=== PATIENT | female | born 1960 | race Caucasian/White ===

== ENCOUNTER 2021-04-16 20:11 | Emergency (ER) | payer MEDICARE, OTHER, SELFPAY ==
[2021-04-16 20:13] VITALS: BP 176/105; PULSE 125; RESP 16; TEMP 36.4; O2SAT 96; BMI 27.3
--- NOTE | 2021-04-16 20:27 | ED_ITS ---
HPI - Fall General: Chief Complaint: Fall Stated Complaint: FALL Time Seen by Provider: 04/16/21 20:27 History of Present Illness: HPI Narrative: 60-year-old female was working in a shed today and became overheated. Patient was walking out to her car and was l ightheaded and fell to the ground landing on her buttocks and hitting the back of her head against the back end of the car. Patient denied any loss of consciousness. Patient sat for a while and felt better. Patient appears well. Patient appears no acute distress at this time. Patient reports chronic history of back pain and neck injury. Patient denies any other medical concerns. Review of Systems General: Reports: 10 or more systems reviewed and unremarkable except in HPI and below Musc: Reports: other (Low back pain, neck pain, and occipital scalp hematoma) Physical Exam Const: COMMON NORMALS: no acute distress and patient oriented x3 GENERAL APPEARANCE: cooperative HENMT: COMMON NORMALS: normocephalic, TM's normal bilaterally and Normal external nose present HEAD & SCALP: normocephalic and other (Small scalp basilio marty to the occiput) NOSE: Normal external nose present TYMPANIC MEMBRANE: TM's normal bilaterally MOUTH: Normal oral and palatal mucosa present Eye: GENERAL EYE: appearance normal, both eyes and all related structures Neck/C-Spine: COMMON NORMALS: full ROM Chest: COMMONS NORMALS: normal inspection of the chest Resp: COMMON NORMALS: normal respiratory effort EFFORT & INSPECTION: Yes able to speak in complete sentences Cardio: COMMON NORMALS: regular rate and regular rhythm RATE: regular rate RHYTHM: regular rhythm GI: COMMON NORMALS: non-tender Back/Pelvis: OTHER: Mild vertebral pain of the lumbar spine, muscle tenderness is noted. Extremity: COMMON NORMALS: normal to inspection Neuro: COMMON NORMALS: patient oriented x3 and moves all extremities Psych: COMMON NORMALS: mental status grossly normal and cooperative Skin: COMMON NORMALS: no rashes or lesions noted GENERAL SKIN EXAM: no rashes or lesions noted Course 2 Vital Signs: Vital signs: Vital Signs Temperature 97.6 F 04/16/21 20:13 Pulse Rate 87 04/16/21 20:56 Respiratory Rate 24 H 04/16/21 20:56 Blood Pressure 181/91 04/16/21 20:56 Pulse Oximetry 98 04/16/21 20:56 MDM - Fall MDM Narrative: Medical decision making narrative: 60-year-old female comes in today with complaints of head injury, neck discomfort, and low back pain. On exam patient does have a small hematoma to the occiput of her scalp. Patient has some muscle tenderness of her neck but no midline tenderness. Patient has some mild midline tenderness of the lumbar spine around L4-L5. Differential diagnosis includes but not limited to fracture, intervertebral disc disease, facet arthropathy, closed head injury, intracranial bleed. CT scan of the head neck and lumbar spine indicated no acute fractures or intracranial bleeding. Reviewed exam with patient with recommendations for treatment and follow-up. Patient reported understanding and agreed to plan. Lab Data: Labs: Lab Results 04/16/21 04/16/21 Range/Units 20:55 20:55 WBC 10.2 H (4.0-10.0) 10^3/ uL RBC 5.34 H (4.1-5.3) 10^6/u L Hgb 12.9 (11.5-15.3) g/dL Hct 40.9 (37.0-47.0) % MCV 76.6 L (81-99) fl MCH 24.2 L (28.0-34.0) pg MCHC 31.5 (30.0-36.0) g/dL RDW 15.9 H (12.1-15.1) % Plt Count 383 (130-400) 10^3/c mm MPV 11.5 H (7.4-10.4) fL Neut % (Auto) 73.7 % Lymph % (Auto) 19.4 % [place] % (Auto) 6.0 % Eos % (Auto) 0.5 % Baso % (Auto) 0.2 % Neut # (Auto) 7.49 (1.8-7.7) 10^3/u L Lymph # (Auto) 2.0 (0.8-4.8) 10^3/u L [place] # (Auto) 0.6 (0.2-0.9) 10^3/u L Eos # (Auto) 0.1 (0.0-0.8) 10^3/u L Baso # (Auto) 0.0 (0.0-0.1) 10^3/u L Nucleated RBC % (a uto) 0 % Nucleated RBCs # 0.0 /100WBC Sodium 143 (136-145) mmol/L Potassium 3.1 L (3.5-5.1) mmol/L Chloride 105 (98-107) mmol/L Carbon Dioxide 24 (22-29) mmol/L Anion Gap 17.1 (5-19) BUN 13 (8-23) mg/dL Creatinine 0.5 (0.5-0.9) mg/dL GFR Calculation 125.0 (90-130) mL/min Glucose 104 (65-115) mg/dL Calculated Osmolal ity 296 H (285-295) mOsm/k g Calcium 8.2 L (8.5-10.5) mg/dL Total Bilirubin 0.2 (0.15-1.2) mg/dL AST 19 (0-32) U/L ALT 11 (0-33) U/L Alkaline Phosphata se 102 (35-105) IU/L Total Protein 6.5 L (6.6-8.7) g/dL Albumin 3.5 (3.5-5.2) g/dL Globulin 3.0 (1.3-4.6) g/dL Discharge Plan Discharge Patient Disposition: Home Clinical Impression: Fall Qualifiers: Encounter type: initial encounter Qualified Code(s): W19.XXXA - Unspecified fall, initial encounter Back pain Qualifiers: Back pain location: low back pain Chronicity: unspecified Back pain laterality: unspecified Sciatica presence: without sciatica Qualified Code(s): M54.5 - Low back pain Closed head injury Qualifiers: Encounter type: initial encounter Qualified Code(s): S09.90XA - Unspecified injury of head, initial encounter Condition: Stable Prescriptions: New hydrocodone-acetaminophen 5-325 mg tablet 1 tab PO Q6H PRN (Reason: pain (scale score 7-10)) Qty: 10 RF: 0 Discharge Orders: Discharge ED (Routine); Ordered 04/16/21 Ordered By: Maximilian Cedillo Referrals: Jad Botello [Primary Care Provider] - Discharge Diet: Usual diet Discharge Activity: Increase activity as tolerated Patient Instructions: Back Pain (ED), Opioid Safety Activity Restrictions/Additional Instructions: Activity as tolerated. Gentle stretching and range of motion activity. Drink plenty of water with medications. Follow-up with primary care in 1 week for recheck. Return to the ER for new concerns. 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
--- NOTE | 2021-04-16 20:28 | CTR_ITS ---
PROCEDURE INFORMATION: Exam: CT Cervical Spine Without Contrast Exam date and time: 04/16/2021 8:28 PM Age: 60 years old Clinical indication: Injury or trauma; Fall; Blunt trauma; Prior surgery; Surgery date: 6+ months; Additional info: Fall injury TECHNIQUE: Imaging protocol: Computed tomography images of the cervical spine without contrast. Radiation optimization: All CT scans at this facility use at least one of these dose optimization techniques: automated exposure control; mA and/or kV adjustment per patient size (includes targeted exams where dose is matched to clinical indication); or iterative reconstruction. COMPARISON: CT head wo con* [id number] 04/16/2021 9:09 PM RADIATION DOSE METRICS: Total DLP (mGy-cm): 420.08 FINDINGS: Bones/joints: Posterior fusion noted from C1 through C3. Well corticated distal portion of the dens noted, separate from the body of C2. This has the appearance of old trauma versus os odontoideum. Vertebral alignment is physiologic. No acute fractures are demonstrated. No vertebral subluxation at any level. Mild degenerative facet joint changes. Discs/Spinal canal/Neural foramina: Degenerative disc narrowing at C5-C6. Mild disc bulges at C3-C4, C4-C5, C5-C6, and C6-C7. No severe spinal canal stenosis at any level. No severe neural foraminal stenosis at any level. Lungs: Mild fibrosis at the lung apices. Pleural spaces: No apical pneumothorax. Vasculature: Bilateral carotid artery stents are demonstrated. Soft tissues: No acute abnormality of the soft tissues. CT/CT cervical spin wo con* [id number] IMPRESSION: 1. 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 There is posterior fusion from C1 through C3, likely related to this finding. 2. No acute abnormality of the cervical spine demonstrated. Radiation Dose CTDIVOL = (mGy): DLP = 420.08 (mGy-cm)
--- NOTE | 2021-04-16 20:28 | CTR_ITS ---
PROCEDURE INFORMATION: Exam: CT Head Without Contrast Exam date and time: 04/16/2021 8:28 PM Age: 60 years old Clinical indication: Injury or trauma; Fall; Blunt trauma (contusions or hematomas); Without loss of consciousness; Additional info: Fall injury TECHNIQUE: Imaging protocol: Computed tomography of the head without contrast. Radiation optimization: All CT scans at this facility use at least one of these dose optimization techniques: automated exposure control; mA and/or kV adjustment per patient size (includes targeted exams where dose is matched to clinical indication); or iterative reconstruction. COMPARISON: No relevant prior studies available. RADIATION DOSE METRICS: Total DLP (mGy-cm): 794.83 FINDINGS: Brain: Old encephalomalacia left parietal lobe near the convexity. Age related parenchymal volume loss noted. There is decreased attenuation of the periventricular white matter, consistent with chronic microangiopathic white matter disease. Cerebral ventricles: No ventriculomegaly. Paranasal sinuses: Visualized sinuses are unremarkable. No fluid levels. Mastoid air cells: Unremarkable as visualized. No mastoid effusion. Bones/joints: Unremarkable. No acute fracture. Soft tissues: Unremarkable. CT/CT head wo con* [id number] IMPRESSION: No acute intracranial abnormality demonstrated. Radiation Dose CTDIVOL = (mGy): DLP = 794.83 (mGy-cm)
--- NOTE | 2021-04-16 20:28 | CTR_ITS ---
PROCEDURE INFORMATION: Exam: CT Lumbar Spine Without Contrast Exam date and time: 04/16/2021 8:28 PM Age: 60 years old Clinical indication: Injury or trauma; Fall; Blunt trauma (contusions or hematomas); Prior surgery; Surgery date: 6+ months; Additional info: Fall injury TECHNIQUE: Imaging protocol: Computed tomography images of the lumbar spine without contrast. Radiation optimization: All CT scans at this facility use at least one of these dose optimization techniques: automated exposure control; mA and/or kV adjustment per patient size (includes targeted exams where dose is matched to clinical indication); or iterative reconstruction. COMPARISON: No relevant prior studies available. RADIATION DOSE METRICS: Total DLP (mGy-cm): FINDINGS: Vertebrae: Idiopathic S-shaped scoliosis. Severe L5-S1 degenerative disc disease and spondylosis with Modic type III sclerotic endplate degenerative changes. Prominent right L1 benign intraosseous bone hemangioma. Discs/Spinal canal/Neural foramina: Mild L5-S1 central spinal stenosis with mild left lateral recess stenosis. Kidneys and ureters: Small vessel arterial calcifications in the renal gianluca bilaterally which are often associated with chronic renal failure. Vasculature: Calcification of the abdominal aorta and/or iliac arteries consistent with atherosclerotic vessel disease. Soft tissues: Unremarkable. CT/CT lumbar spine wo con* [id number] IMPRESSION: No acute spine findings. Radiation Dose CTDIVOL = (mGy): DLP = 1990.55 (mGy-cm)
[2021-04-16 20:56] VITALS: BP 181/91; PULSE 87; RESP 24; O2SAT 98
[2021-04-16 21:07] LABS: Basophils % 0.2 %; Eosinophils # 0.1 10^3/uL (0.0-0.8); Eosinophils % 0.5 %; Hematocrit 40.9 % (37.0-47.0); Hemoglobin 12.9 g/dL (11.5-15.3); Lymphocytes % 19.4 %; Mean Corpuscular HGB Conc 31.5 g/dL (30.0-36.0); Mean Corpuscular Hemoglobin 24.2 pg (28.0-34.0); Mean Corpuscular Volume 76.6 fl (81-99); Mean Platelet Volume 11.5 fL (7.4-10.4); Monocytes # 0.6 10^3/uL (0.2-0.9); Neutrophils # 7.49 10^3/uL (1.8-7.7); Neutrophils % 73.7 %; Nucleated Red Blood Cells % 0 %; Platelet Count 383 10^3/cmm (130-400); Red Blood Count 5.34 10^6/uL (4.1-5.3); Red Cell Distribution Width 15.9 % (12.1-15.1); White Blood Count 10.2 10^3/uL (4.0-10.0)
[2021-04-16 21:23] LABS: Alanine Aminotransferase 11 U/L (0-33); Albumin Level 3.5 g/dL (3.5-5.2); Alkaline Phosphatase 102 IU/L (35-105); Anion Gap 17.1 (5-19); Aspartate Amino Transferase 19 U/L (0-32); Blood Urea Nitrogen 13 mg/dL (8-23); Calcium 8.2 mg/dL (8.5-10.5); Carbon Dioxide 24 mmol/L (22-29); Chloride 105 mmol/L (98-107); Creatinine Clr Calc Pharmacy 126.5439; Glucose 104 mg/dL (65-115); Osmolality Calculated 296 mOsm/kg (285-295); Potassium 3.1 mmol/L (3.5-5.1); Sodium 143 mmol/L (136-145); Total Bilirubin 0.2 mg/dL (0.15-1.2); Total Protein 6.5 g/dL (6.6-8.7)
[2021-04-16 22:45] VITALS: BP 171/94; PULSE 78; RESP 18
== END 2021-04-16 22:47 | disposition home or self-care (01) ==
PROVIDERS: Emergency Provider Nurse Practitioner Family; PCP Family Medicine
DX: S00.03XA Contusion of scalp, initial encounter (principal); M54.5 Low back pain; W22.8XXA Striking against or struck by other objects, initial encounter
CPT/HCPCS: 70450; 72125; 72131; 80053; 85025; 99283

== ENCOUNTER 2021-06-14 03:35 | Inpatient (IN) | payer MEDICARE, OTHER, SELFPAY ==
[2021-06-14] VITALS (65 sets, daily range): BP systolic 99–140; BP diastolic 52–84; PULSE 81–111; RESP 13–33; TEMP 36.7–37; O2SAT 85–100; BMI 25.0
--- NOTE | 2021-06-14 03:39 | XRR_ITS ---
PROCEDURE INFORMATION: Exam: XR Chest Exam date and time: 06/14/2021 3:39 AM Age: 60 years old Clinical indication: Dyspnea; Additional info: SOB TECHNIQUE: Imaging protocol: XR of the chest. Views: 1 view. COMPARISON: CT cervical spin wo con* [id number] 04/16/2021 9:12 PM FINDINGS: Lungs: There is increased lung markings and haziness of the lungs, which in the setting of cardiomegaly is suggestive of pulmonary edema. Pneumonia should be excluded clinically. Pleural spaces: Unremarkable. No pleural effusion. No pneumothorax. Heart/Mediastinum: See Lungs finding. Bones/joints: Cervical spine fusion hardware noted. XR/XR chest 1V portable [id number] IMPRESSION: Imaging findings suggestive of pulmonary edema. Pneumonia can have this appearance. Radiation Dose CTDIVOL = (mGy): DLP = (mGy-cm)
--- NOTE | 2021-06-14 03:40 | ECG_ITS ---
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 Measurements Intervals [place] Rate: 106 P: 37 NV: 132 QRS: 11 QRSD: 79 T: 33 QT: 331 QTc: 441 Interpretive Statements SINUS TACHYCARDIA POSSIBLE LEFT ATRIAL ENLARGEMENT [-0.1mV P-WAVE IN V1/V2] MARKED ST DEPRESSION, CONSIDER SUBENDOCARDIAL INJURY [0.2+ mV ST DEPRESSION] No previous ECG available for comparison Electronically Signed On 06-14-2021 23:27:43 CDT by Knvg Gloria M.D. [id number]
--- NOTE | 2021-06-14 03:41 | W.ED.SOB ---
HPI - SOB/Dyspnea General: Chief Complaint: Shortness of Breath/Dyspnea Stated Complaint: RESP. DISTRESS Time Seen by Provider: 06/14/21 03:39 Source: patient and EMS Mode of arrival: EMS Limitations: no limitations History of Present Illness: HPI Narrative: 60-year-old female who states that over the last day she has been having shortness of breath. She states that she does also have some left-sided chest pain goes into her shoulder neck that is worse with palpation. EMS states that she had quite a bit of wheezing and hypoxia they arrived they given her a DuoNeb and albuterol treatment with improving symptoms. She states that she her breathing is a little better she still 85% here on room air. States the pain she is having is sharp in nature. She denies any nausea or diaphoresis. Associated symptoms: Reports chest pain; Deny abdominal pain, fever(s), nausea or vomiting Review of Systems Const: Denies: fever(s), chills, body aches or change in appetite Eyes: Denies: blurry vision or eye discomfort ENMT: Denies: throat pain or dental pain Card: Reports: chest pain Resp: Reports: dyspnea and wheezing GI: Denies: abdominal pain, nausea, vomiting or diarrhea : Denies: dysuria Musc: Denies: neck pain or back pain Skin/Breast: Denies: rash Neuro: Denies: headache(s) Psych: Denies: depression Sanjiv/Lymph: Denies: easy bruising All/Imm: Denies: urticaria Physical Exam Const: COMMON NORMALS: no acute distress, patient oriented x3 and healthy appearing HENMT: COMMON NORMALS: normocephalic and atraumatic HEAD & SCALP: normocephalic and atraumatic Eye: COMMON NORMALS: Equal, round and reactive pupils present and EOMs intact bilaterally PUPIL: Yes Equal, round and reactive pupils present Neck/C-Spine: COMMON NORMALS: full ROM and supple Chest: COMMONS NORMALS: normal inspection of the chest OTHER: point tender over left chest Resp: COMMON NORMALS: normal respiratory effort, No retractions and No use of accessory muscles AUSCULTATION: wheezes Cardio: COMMON NORMALS: regular rate, regular rhythm and No murmurs present (Cardio) RATE: regular rate RHYTHM: regular rhythm GI: COMMON NORMALS: Normal to inspection, nondistended, normoactive bowel sounds present, Soft to palpation, non-tender and no masses PALPATION: Yes Soft to palpation Extremity: COMMON NORMALS: normal to inspection and full ROM Neuro: COMMON NORMALS: patient oriented x3, moves all extremities and no focal motor deficits Psych: COMMON NORMALS: mental status grossly normal, Normal thought process present and cooperative THOUGHT PROCESS: Normal thought process present Skin: COMMON NORMALS: no rashes or lesions noted and no wounds GENERAL SKIN EXAM: no rashes or lesions noted Course Vital Signs: Vital signs: Vital Signs Temperature 98.4 F 06/14/21 03:36 Pulse Rate 110 H 06/14/21 04:31 Respiratory Rate 15 06/14/21 04:59 Blood Pressure 110/74 06/14/21 04:01 Pulse Oximetry 92 06/14/21 04:59 MDM - SOB/Dyspnea MDM Narrative: Medical decision making narrative: Patient presents originally with shortness of breath is requiring oxygen. X-ray is either pulmonary edema versus pneumonia more likely pulmonary edema will get blood cultures and her white count is elevated so did give her a dose of azithromycin and Rocephin. Patient given Lasix for elevated BNP. EKG does show ST depressions and she has an elevated troponin with a N STEMI. She has no ST elevation her chest pain here is been resolved. Patient given Lovenox I spoke to cardiology who is consulted I also spoke to hospitalist who is admitting. Lab Data: Labs: Lab Results 06/14/21 06/14/21 06/14/21 03:50 03:50 03:50 WBC 13.6 10^3/uL H 10 ^3/uL (4.0-10.0) RBC 4.94 10^6/uL 10^6 /uL (4.1-5.3) Hgb 12.0 g/dL g/dL (11.5-15.3) Hct 39.0 % % (37.0-47.0) MCV 78.9 fl L fl (81-99) MCH 24.3 pg L pg (28.0-34.0) MCHC 30.8 g/dL g/dL (30.0-36.0) RDW 16.7 % H % (12.1-15.1) Plt Count 340 10^3/cmm 10^3 /cmm (130-400) MPV 11.9 fL H fL (7.4-10.4) Neut % (Auto) 87.3 % % Lymph % (Auto) 8.0 % % [place] % (Auto) 3.8 % % Eos % (Auto) 0.2 % % Baso % (Auto) 0.3 % % Neut # (Auto) 11.86 10^3/uL H 1 0^3/uL (1.8-7.7) Lymph # (Auto) 1.1 10^3/uL 10^3/ uL (0.8-4.8) [place] # (Auto) 0.5 10^3/uL 10^3/ uL (0.2-0.9) Eos # (Auto) 0.0 10^3/uL 10^3/ uL (0.0-0.8) Baso # (Auto) 0.0 10^3/uL 10^3/ uL (0.0-0.1) Nucleated RBC % (a uto) 0 % % Nucleated RBCs # 0.0 /100WBC /100W BC PT 14.00 SECONDS SEC ONDS (12.1-14.9) INR 1.05 (0.8-1.2) D-Dimer 0.31 ug/mIFEU ug/ mIFEU (0-0.59) Specimen Type Sample Site ABG pH ABG pCO2 ABG pO2 ABG HCO3 ABG Base Excess Rm Test Hematocrit Hgb O2 Saturation Carboxyhemoglobin Methemoglobin Total Hemoglobin O2 Delivery Device O2 Liters/Min FiO2 Radar Mechanic ID Sodium 138 mmol/L mmol/L (136-145) Potassium 3.9 mmol/L mmol/L (3.5-5.1) Chloride 100 mmol/L mmol/L (98-107) Carbon Dioxide 24 mmol/L mmol/L (22-29) Anion Gap 17.9 (5-19) BUN 15 mg/dL mg/dL (8-23) Creatinine 0.6 mg/dL mg/dL (0.5-0.9) GFR Calculation 101.3 mL/min mL/m in (90-130) Glucose 143 mg/dL H mg/dL (65-115) Calculated Osmolal ity 289 mOsm/kg mOsm/ kg (285-295) Calcium 9.2 mg/dL mg/dL (8.5-10.5) Total Bilirubin 0.4 mg/dL mg/dL (0.15-1.2) AST 18 U/L U/L (0-32) ALT 11 U/L U/L (0-33) Alkaline Phosphata se 87 IU/L IU/L (35-105) Troponin T Baselin e NT-Pro-B Natriuret Pep 2026 pg/mL H pg/m L (0-125) Total Protein 6.3 g/dL L g/dL (6.6-8.7) Albumin 3.9 g/dL g/dL (3.5-5.2) Globulin 2.4 g/dL g/dL (1.3-4.6) SARS-CoV-2 Ag (Rap id) 06/14/21 06/14/21 06/14/21 03:50 04:00 04:24 WBC RBC Hgb Hct MCV MCH MCHC RDW Plt Count MPV Neut % (Auto) Lymph % (Auto) [place] % (Auto) Eos % (Auto) Baso % (Auto) Neut # (Auto) Lymph # (Auto) [place] # (Auto) Eos # (Auto) Baso # (Auto) Nucleated RBC % (a uto) Nucleated RBCs # PT INR D-Dimer Specimen Type Arterial Sample Site Radial, right ABG pH 7.47 H (7.35-7.45) ABG pCO2 37.2 mmHg mmHg (35-45) ABG pO2 70.9 mmHg L mmHg (80.0-100.0) ABG HCO3 26.8 mmol/L H mmo l/L (22-26) ABG Base Excess 3.1 mmol/L H mmol /L (-2.0-2.0) Rm Test Pos Hematocrit 40.4 % % (37-47) Hgb O2 Saturation 93.3 % L % (95-100) Carboxyhemoglobin 1.2 %THgb %THgb (0.4-20.1) Methemoglobin 0.9 % % (0.4-1.5) Total Hemoglobin 13.2 g/dL g/dL (12-16) O2 Delivery Device Nc O2 Liters/Min 3.0 % % FiO2 32.0 % % Radar Mechanic ID glc Sodium Potassium Chloride Carbon Dioxide Anion Gap BUN Creatinine GFR Calculation Glucose Calculated Osmolal ity Calcium Total Bilirubin AST ALT Alkaline Phosphata se Troponin T Baselin e 137 ng/L H* ng/L (0-10) NT-Pro-B Natriuret Pep Total Protein Albumin Globulin SARS-CoV-2 Ag (Rap id) Negative (Negative) EKG Data^: EKG 1: Attestation: I personally reviewed and interpreted this EKG as follows: EKG Interpretation Date: 06/14/21 EKG interpretation time: 03:47 Interpretation: sinus tach hr [address] elevation, st depression II, v3-v6 qrs 75 qtc 394 Discharge Plan Discharge Patient Disposition: Admitted As Inpatient Clinical Impression: Congestive heart failure, Non-ST elevation [place] (NSTEMI), Pneumonia Condition: Stable Coding Level of Care Code ED [employer]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
[2021-06-14 03:56] LABS: Basophils % 0.3 %; Eosinophils % 0.2 %; Lymphocytes # 1.1 10^3/uL (0.8-4.8); Mean Corpuscular HGB Conc 30.8 g/dL (30.0-36.0); Mean Corpuscular Hemoglobin 24.3 pg (28.0-34.0); Mean Corpuscular Volume 78.9 fl (81-99); Mean Platelet Volume 11.9 fL (7.4-10.4); Monocytes # 0.5 10^3/uL (0.2-0.9); Monocytes % 3.8 %; Neutrophils # 11.86 10^3/uL (1.8-7.7); Neutrophils % 87.3 %; Nucleated Red Blood Cells % 0 %; Platelet Count 340 10^3/cmm (130-400); Red Blood Count 4.94 10^6/uL (4.1-5.3); Red Cell Distribution Width 16.7 % (12.1-15.1); White Blood Count 13.6 10^3/uL (4.0-10.0)
[2021-06-14 04:08] LABS: INR 1.05 (0.8-1.2)
[2021-06-14 04:12] LABS: D Dimer 0.31 ug/mIFEU (0-0.59)
[2021-06-14 04:24] LABS: Alanine Aminotransferase 11 U/L (0-33); Albumin Level 3.9 g/dL (3.5-5.2); Alkaline Phosphatase 87 IU/L (35-105); Anion Gap 17.9 (5-19); Aspartate Amino Transferase 18 U/L (0-32); Blood Urea Nitrogen 15 mg/dL (8-23); Calcium 9.2 mg/dL (8.5-10.5); Carbon Dioxide 24 mmol/L (22-29); Chloride 100 mmol/L (98-107); Globulin 2.4 g/dL (1.3-4.6); Glomerular Filtration Rate 101.3 mL/min (90-130); Glucose 143 mg/dL (65-115); NT Pro B Type Natriuretic Pept 2026 pg/mL (0-125); Osmolality Calculated 289 mOsm/kg (285-295); Potassium 3.9 mmol/L (3.5-5.1); Sodium 138 mmol/L (136-145); Total Bilirubin 0.4 mg/dL (0.15-1.2); Total Protein 6.3 g/dL (6.6-8.7); Troponin(5th) Baseline 137 ng/L (0-10)
[2021-06-14 04:25] LABS: SARS Covid-2 Antigen Negative (Negative)
[2021-06-14 04:35] LABS: ABG PCO2 37.2 mmHg (35-45); ABG PH Result 7.47 (7.35-7.45); Arterial Blood Gas Hematocrit 40.4 % (37-47); Base Excess ABG 3.1 mmol/L (-2.0-2.0); Blood Gas Allen Test Pos; Blood Gas Operator Identificat glc; Blood Gas Sample Site Radial, right; Blood Gas Sample Type Arterial; Carboxyhemoglobin 1.2 %THgb (0.4-20.1); HCO3 ABG 26.8 mmol/L (22-26); HGB O2 Sat 93.3 % (95-100); Methemoglobin 0.9 % (0.4-1.5); Oxygen Device NC; PO2 ABG 70.9 mmHg (80.0-100.0); Total Hemoglobin 13.2 g/dL (12-16)
[2021-06-14] MEDS: azithromycin 500 MG in sodium chloride 0.9% 250 ML 250 MG IV (04:37)
[2021-06-14] MEDS: cefTRIAXone 1,000 MG in sodium chloride 0.9% (plus) 50 ML 100 MG IV (04:37)
[2021-06-14] MEDS: enoxaparin 80 mg/0.8 mL Syringe 70 MG SUBCUT (04:56)
[2021-06-14] MEDS: aspirin 81 mg Chew Tablet 324 MG PO (04:59)
[2021-06-14] MEDS: morphine 4 mg/mL SDV 1 mL IVP ×2 (04:59→05:36)
[2021-06-14] MEDS: metoprolol tartrate 25 mg Tablet PO ×2 (05:36→20:56)
[2021-06-14] MEDS: atorvastatin 40 mg Tablet 80 MG PO ×2 (05:36→20:57)
[2021-06-14] MEDS: FUROsemide 10 mg/mL SDV 4mL 40 MG IVP ×3 (05:36→14:31)
--- NOTE | 2021-06-14 05:40 | ECG_ITS ---
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 Measurements Intervals [place] Rate: 104 P: 40 [place]: 128 QRS: 11 QRSD: 75 T: 74 QT: 346 QTc: 455 Interpretive Statements SINUS TACHYCARDIA POSSIBLE LEFT ATRIAL ENLARGEMENT [-0.1mV P-WAVE IN V1/V2] NONSPECIFIC ST & T-WAVE ABNORMALITY ABNORMAL RHYTHM ECG No previous ECG available for comparison Electronically Signed On 06-14-2021 23:35:56 CDT by Kvng Gloria M.D. [id number]
[2021-06-14] MEDS: nitroglycerin 0.4 mg sublingual Tablet SUBLINGUAL (05:55)
--- NOTE | 2021-06-14 07:12 | PM.CONSULT ---
Providers/Reason For Consult Consulting Physician/Specialty*: Kvng Gloria MD/ Cardiology Reason for Consult*: NSTEMI/ Heart failure Requesting Physician: Dr Frank Attending Physician: Dr Frank Primary Care Provider: Jad Botello History of Present Illness History of Present Illness Irene Zuluaga is a 60 year old female presented to hospital with chest pain and shortness of breath. Symptoms started at 6 PM yesterday and had nausea and vomitting as well. Continued having chest pain. Pain is now better. She has pulmonary edema. Troponins trended up significantly from 137 to 257 at 6 [address]. EKG shows diffuse ST depressions. Review of Systems General: Reports: 10 or more systems reviewed and unremarkable except in HPI and below Const: Denies: fever(s) or chills Eyes: Denies: change in vision ENMT: Denies: throat pain Card: Reports: chest pain and dyspnea on exertion Resp: Reports: dyspnea GI: Reports: nausea and vomiting; Denies: abdominal pain : Denies: flank pain Musc: Denies: neck pain Skin/Breast: Denies: rash Neuro: Denies: headache(s) Psych: Denies: anxiety Endo: Denies: polyuria Sanjiv/Lymph: Denies: easy bruising All/Imm: Denies: urticaria Meds/Allergies Home Medications and Allergies Home Medications Medication Instructions Recorded Confirmed Last Taken Type Vitamin B-12 1 tab PO DAILY 06/14/21 06/14/21 Unknown History Vitamin C 1 tab PO DAILY 06/14/21 06/14/21 Unknown History albuterol sulfate 2.5 mg INHALATION Q4H PRN 06/14/21 06/14/21 Unknown History allopurinol 100 mg PO DAILY 06/14/21 06/14/21 Unknown History alpha lipoic acid 1 cap PO DAILY 06/14/21 06/14/21 Unknown History amlodipine [Norvasc] 10 mg PO DAILY 06/14/21 06/14/21 Unknown History aspirin [Aspir-81] 162 mg PO BID 06/14/21 06/14/21 Unknown History bupropion HCl [Wellbutrin XL] 150 mg PO QAM 06/14/21 06/14/21 Unknown History calcium 1 tab PO DAILY 06/14/21 06/14/21 Unknown History clonidine HCl 0.1 mg PO QAM 06/14/21 06/14/21 Unknown History clopidogrel [Plavix] 75 mg PO QAM 06/14/21 06/14/21 Unknown History cyclobenzaprine [Flexeril] 10 mg PO BID PRN 06/14/21 06/14/21 Unknown History diclofenac sodium [Voltaren 2 g TOPICAL QID PRN 06/14/21 06/14/21 Unknown History Arthritis Pain] ergocalciferol (vitamin D2) 50,000 unit PO Q7D 06/14/21 06/14/21 06/12/21 History [Vitamin D2] ezetimibe [Zetia] 10 mg PO QPM 06/14/21 06/14/21 Unknown History gabapentin 300 mg PO BEDTIME 06/14/21 06/14/21 Unknown History gabapentin See Rx Instructions .ROUTE .COMPLEX 06/14/21 06/14/21 Unknown History garlic 1,000 mg PO DAILY 06/14/21 06/14/21 Unknown History glipizide 5 mg PO QAM 06/14/21 06/14/21 Unknown History hydrochlorothiazide 12.5 mg PO QAM 06/14/21 06/14/21 Unknown History hydrocodone-acetaminophen 1 tab PO Q4H PRN 06/14/21 06/14/21 Unknown History levalbuterol tartrate 2 inh INHALATION Q6H PRN 06/14/21 06/14/21 Unknown History lisinopril 10 mg PO DAILY 06/14/21 06/14/21 Unknown History metformin 1,000 mg PO BID 06/14/21 06/14/21 Unknown History metoprolol tartrate 25 mg PO BID 06/14/21 06/14/21 Unknown History mupirocin 1 applic TOPICAL DAILY 06/14/21 06/14/21 Unknown History omega-3 acid ethyl esters [Lovaza] 2 g PO BID 06/14/21 06/14/21 Unknown History pantoprazole [Protonix] 40 mg PO DAILY 06/14/21 06/14/21 Unknown History salmeterol [Serevent Diskus] 1 inh INHALATION BID 06/14/21 06/14/21 Unknown History simvastatin 40 mg PO QPM 06/14/21 06/14/21 Unknown History zinc 1 cap PO DAILY 06/14/21 06/14/21 Unknown History Allergies Allergy/AdvReac Type Severity Reaction Status Date / Time adhesive tape Allergy ADR-Itching Verified 06/14/21 03:46 Anesthetics - Amide Type - Allergy Unconscious Verified 06/14/21 03:49 Select A Anesthetics - Leanne Type- Allergy Unconscious Verified 06/14/21 03:49 Parabens bee venom protein (honey bee) Allergy ALGY-Anaphy Verified 06/14/21 03:49 laxis Penicillins Allergy ALGY-Anaphy Verified 06/14/21 03:49 laxis pepper (genus Capsicum) Allergy ALGY-Anaphy Verified 06/14/21 03:49 laxis Current Medications Current Medications Generic Name Dose Route Start Last Admin Trade Name Freq PRN Reason Stop Dose Admin Nitroglycerin 0.4 mg 06/14/21 05:32 06/14/21 05:55 Nitroglycerin 0.4 Mg Sublingual Tablet SUBLINGUAL 1 tab Q5M PRN Administration CHEST PAIN PFSH Acute PFSH: Medical History (Updated 06/15/21 @ 08:08 by Kvng Gloria M.D) Asthma CVA (cerebral vascular accident) Residual right hemiparesis GERD (gastroesophageal reflux disease) Gout History of poliomyelitis without residual effect Hyperlipidemia Hypertension Hypothyroidism Personal history of congenital hip dysplasia Sustained SVT History of ablation Type 2 diabetes mellitus Surgical History History of bilateral carotid endarterectomy History of cholecystectomy History of hip replacement, total History of knee surgery History of neck surgery Hx of exploratory laparotomy Family History Other CAD (coronary artery disease) Social History Smoking and tobacco status: former smoker Alcohol intake: never Vitals/I&O/Wt Last Vital Signs Temp 98.6 F 06/14/21 05:56 Pulse 81 06/14/21 06:30 Resp 20 H 06/14/21 06:30 BP 99/52 06/14/21 06:30 Pulse Ox 93 06/14/21 06:30 06/13/21 06/14/21 06/14/21 22:59 06:59 14:59 Intake Total 300 / 300 Balance 300 / 300 Weight last 48 hrs Weight 160 lb Physical Exam Narrative: EXAM NARRATIVE: General : Alert and oriented x 3.Sitting up because of shortness of breath HEENT: PERRLA Neck is supple Lungs has bilateral crackles Cardiovascular: Regular rate and rhythm, has grade 2/6 murmur Abdomen is soft Extremities: no edema Skin no rash Neuro no focal deficits. Data Micro: Micro: Microbiology 06/14/21 06:34 Blood Culture - Pr eliminary Blood [facility] 06/14/21 06:29 Blood Culture - Pr eliminary Blood [facility] A&P Assessment and plan (1) Non-ST elevation [place] (NSTEMI): Status: Acute (2) Congestive heart failure: Status: Acute (3) Type 2 diabetes mellitus: Status: Acute (4) Hyperlipidemia: Status: Acute (5) Hypertension: Status: Acute Patient has presented with NSTEMI and congestive heart failure Continue aspirin and Plavix Start anticoagulation' trend troponins Order echocardiogram Will need more diuresis for the next few hours before angiogram can be done as otherwise she may go into respiratory failure and may not be able to lay flat. She is DNR but is willing to change status to full code for the procedure and periprocedural period. Thank you for involving us with care of this patient. We will continue to follow. Please call with questions. Coding Level of Care Code Acute Slot Machine Floor Person for Lucy Gibson Diagnoses Non-ST elevation [place] (NSTEMI) I21.4 Congestive heart failure I50.9 Type 2 diabetes mellitus E11.9 Hyperlipidemia E78.5 Hypertension I10
[2021-06-14 07:19] LABS: Troponin 5 2HR 199.7 ng/L (0-10); Troponin 5 2HR Delta 62.7 ABS# (0-10)
[2021-06-14 07:56] LABS: Glucose Point of Care 163 mg/dL (70-110)
--- NOTE | 2021-06-14 08:14 | PM.HP ---
Providers/Chief Complaint Primary Care Provider: Jad Botello Chief Complaint: RESP. DISTRESS History of Present Illness Irene Zuluaga is a 60 year old female who presents to the emergency department with complaints of chest discomfort and shortness of breath. She believes this started yesterday around 6 PM when she was letting her dogs outside, actively going in and out of the house. She it was associated with nausea and vomiting. She has not had discomfort like this in the past. She reports she has some continued upper chest discomfort and is still somewhat short of breath currently. Chest discomfort was described as pressure/squeezing. She has not been ill lately with any fever or cough. No known Covid exposure. No blood in her stool, black or tarry stool, or hematemesis. Review of Systems General: Reports: 10 or more systems reviewed and unremarkable except in HPI and below Const: Denies: fever(s) or chills Eyes: Denies: change in vision ENMT: Denies: throat pain Card: Reports: chest pain and dyspnea on exertion Resp: Reports: dyspnea GI: Reports: nausea and vomiting; Denies: abdominal pain : Denies: flank pain Musc: Denies: neck pain Skin/Breast: Denies: rash Neuro: Denies: headache(s) Psych: Denies: anxiety Endo: Denies: polyuria Sanjiv/Lymph: Denies: easy bruising All/Imm: Denies: urticaria Medications/Allergies Home Medications Medication Instructions Recorded Confirmed Last Taken Type Vitamin B-12 1 tab PO DAILY 06/14/21 06/14/21 Unknown History Vitamin C 1 tab PO DAILY 06/14/21 06/14/21 Unknown History albuterol sulfate 2.5 mg INHALATION Q4H PRN 06/14/21 06/14/21 Unknown History allopurinol 100 mg PO DAILY 06/14/21 06/14/21 Unknown History alpha lipoic acid 1 cap PO DAILY 06/14/21 06/14/21 Unknown History amlodipine [Norvasc] 10 mg PO DAILY 06/14/21 06/14/21 Unknown History aspirin [Aspir-81] 162 mg PO BID 06/14/21 06/14/21 Unknown History bupropion HCl [Wellbutrin XL] 150 mg PO QAM 06/14/21 06/14/21 Unknown History calcium 1 tab PO DAILY 06/14/21 06/14/21 Unknown History clonidine HCl 0.1 mg PO QAM 06/14/21 06/14/21 Unknown History clopidogrel [Plavix] 75 mg PO QAM 06/14/21 06/14/21 Unknown History cyclobenzaprine [Flexeril] 10 mg PO BID PRN 06/14/21 06/14/21 Unknown History diclofenac sodium [Voltaren 2 g TOPICAL QID PRN 06/14/21 06/14/21 Unknown History Arthritis Pain] ergocalciferol (vitamin D2) 50,000 unit PO Q7D 06/14/21 06/14/21 06/12/21 History [Vitamin D2] ezetimibe [Zetia] 10 mg PO QPM 06/14/21 06/14/21 Unknown History gabapentin 300 mg PO BEDTIME 06/14/21 06/14/21 Unknown History gabapentin See Rx Instructions .ROUTE .COMPLEX 06/14/21 06/14/21 Unknown History garlic 1,000 mg PO DAILY 06/14/21 06/14/21 Unknown History glipizide 5 mg PO QAM 06/14/21 06/14/21 Unknown History hydrochlorothiazide 12.5 mg PO QAM 06/14/21 06/14/21 Unknown History hydrocodone-acetaminophen 1 tab PO Q4H PRN 06/14/21 06/14/21 Unknown History levalbuterol tartrate 2 inh INHALATION Q6H PRN 06/14/21 06/14/21 Unknown History lisinopril 10 mg PO DAILY 06/14/21 06/14/21 Unknown History metformin 1,000 mg PO BID 06/14/21 06/14/21 Unknown History metoprolol tartrate 25 mg PO BID 06/14/21 06/14/21 Unknown History mupirocin 1 applic TOPICAL DAILY 06/14/21 06/14/21 Unknown History omega-3 acid ethyl esters [Lovaza] 2 g PO BID 06/14/21 06/14/21 Unknown History pantoprazole [Protonix] 40 mg PO DAILY 06/14/21 06/14/21 Unknown History salmeterol [Serevent Diskus] 1 inh INHALATION BID 06/14/21 06/14/21 Unknown History simvastatin 40 mg PO QPM 06/14/21 06/14/21 Unknown History zinc 1 cap PO DAILY 06/14/21 06/14/21 Unknown History Allergies Allergy/AdvReac Type Severity Reaction Status Date / Time adhesive tape Allergy ADR-Itching Verified 06/14/21 03:46 Anesthetics - Amide Type - Allergy Unconscious Verified 06/14/21 03:49 Select A Anesthetics - Leanne Type- Allergy Unconscious Verified 06/14/21 03:49 Parabens bee venom protein (honey bee) Allergy ALGY-Anaphy Verified 06/14/21 03:49 laxis Penicillins Allergy ALGY-Anaphy Verified 06/14/21 03:49 laxis pepper (genus Capsicum) Allergy ALGY-Anaphy Verified 06/14/21 03:49 laxis PFSH Acute PFSH: Medical History (Updated 06/14/21 @ 12:26 by Arjun Frank MD) Asthma CVA (cerebral vascular accident) Residual right hemiparesis GERD (gastroesophageal reflux disease) Gout History of poliomyelitis without residual effect Hyperlipidemia Hypertension Hypothyroidism Personal history of congenital hip dysplasia Sustained SVT History of ablation Type 2 diabetes mellitus Surgical History (Updated 06/14/21 @ 12:21 by Arjun Frank MD) History of bilateral carotid endarterectomy History of cholecystectomy History of hip replacement, total History of knee surgery History of neck surgery Hx of exploratory laparotomy Family History (Updated 06/14/21 @ 12:22 by Arjun Frank MD) Other CAD (coronary artery disease) Social History (Updated 06/14/21 @ 12:22 by Arjun Frank MD) Smoking and tobacco status: former smoker Alcohol intake: never Vitals/I&O/Wt Last Vital Signs Temp 98.6 F 06/14/21 05:56 Pulse 95 06/14/21 08:03 Resp 18 06/14/21 08:03 BP 123/84 06/14/21 08:03 Pulse Ox 90 06/14/21 08:03 06/13/21 06/14/21 06/14/21 22:59 06:59 14:59 Intake Total 300 / 300 Balance 300 / 300 Weight last 48 hrs Weight 72.575 kg Physical Exam Narrative: EXAM NARRATIVE: General exam is a white female, who appears short of breath when trying to lay down, reporting she has some vague chest discomfort. HEENT: Pupils equally round. Oropharynx clear. Neck is supple no lymphadenopathy or thyromegaly. Carotid artery endarterectomy scars are noted. Lungs crackles bibasilar Cardiovascular regular rate and rhythm with a 2/6 systolic murmur heard best in the mitral area Abdomen is soft with positive bowel sounds. No obvious organomegaly exam is deferred Extremities no cyanosis clubbing or edema, cap refill brisk Skin no rash Neuro no focal deficits. Data : 06/14/21 03:50 06/14/21 03:50 Micro: Microbiology 06/14/21 06:34 Blood Culture - Preliminary Blood [facility]CIM[facility] 06/14/21 06:29 Blood Culture - Preliminary Blood SPECIMEN COLLECTED Other data: EKG reviewed demonstrates sinus rhythm, normal axis, significant ST depression V2 through 6 as well as laterally Chest x-ray consistent with pulmonary edema LFTs normal Baseline troponin I 37, with repeat of 200 at 120 minutes and 6-hour at 254. Rapid Covid negative A&P Assessment and plan (1) Non-ST elevation [place] (NSTEMI): Full dose anticoagulation started Aspirin given Continue patient's Plavix Continue beta-charis High intensity statin Nitroglycerin drip to alleviate chest discomfort. Keep systolic blood pressure greater than 100. Cardiology consultation, angiogram planned today. Status: Acute (2) Congestive heart failure: 40 mg of Lasix given in the emergency department. I repeated this dose secondary to her ongoing heart failure. Check echocardiogram Cardiology consultation Status: Acute Additional A&P Information History of asthma. DuoNeb as needed. No evidence of exacerbation currently. Hypertension, continue home medications Hyperlipidemia, high intensity statin History of CVA Allow natural , with the exception of when she undergoes angiogram Lovenox full dose anticoagulation currently. Dose was given around 4:40 AM. Attestations Medical Necessity Statement*: Will need greater than 2 midnight stay secondary to non-ST elevation myocardial infarction, acute pulmonary edema with need for angiogram acutely. Time Spent in Patient Care: Greater than 35 minutes Critical Care Time: Critical Care Time (min): 56 Other Attestations: The high probability of a clinically significant, sudden or life threatening deterioration of the patient's [cardiac, neurologic, pulmonary] system(s) required my full and direct attention, intervention and personal management. The critical care time is as shown. This time is in addition to time spent performing any reported procedures but includes the following: [x] Data and vital sign review and interpretation [x] Patient assessment, examination and intervention [x] Documentation [x] Medication orders and management Coding Level of Care Code Acute Marine Equipment Preservation Inspector for Chg Fwd Diagnoses Non-ST elevation [place] (NSTEMI) I21.4 Congestive heart failure I50.9
--- NOTE | 2021-06-14 08:16 | USCV_ITS ---
Irene Zuluaga Age: 60 Gender: F : 1960 Exam Date: 06/14/2021 10:14 Ordering Phys: Arjun Frank MD Technologist: Exam Location: [facility] [place] Indication: NSTEMI BP: / HR: 56 Rhythm: Sinus Technical Quality: Technically difficult study MEASUREMENTS (Male / Female) Normal Values 2D ECHO LV Diastolic Diameter PLAX 3.8 cm 4.2 - 5.9 / 3.9 - 5.3 cm LV Systolic Diameter PLAX 2.7 cm IVS Diastolic Thickness 1.5 cm 0.6 - 1.0 / 0.6 - 0.9 cm IVS Systolic Thickness 1.2 cm LVPW Diastolic Thickness 1.0 cm 0.6 - 1.0 / 0.6 - 0.9 cm LVPW Systolic Thickness 1.2 cm LVOT Diameter 0.0 cm LV Ejection Fraction 2D Teich 54.9 % LV Ejection Fraction MOD 2C 56.0 % LV Ejection Fraction 2C AL 55.4 % LA Diameter 3.7 cm LA Width 3.9 cm LA Height 5.0 cm RA Width 2.8 cm RA Height 4.2 cm Aorta at Sinotubular Diameter 2.5 cm DOPPLER AV Peak Velocity 153.0 cm/s LVOT Peak Velocity 102.0 cm/s AV Area Cont Eq vti 0.0 cm squared AV Area Cont Eq pk 0.0 cm squared MV E' Velocity 9.0 cm/s TR Peak Velocity 340.0 cm/s TR Peak Gradient 46.2 mmHg TV Peak E Velocity 95.0 cm/s Right Atrial Pressure 3.0 mmHg Pulmonary Artery Systolic Pressu 49.2 mmHg FINDINGS Left Ventricle Normal left ventricular size and systolic function, EF 59 %. No regional wall motion abnormalities. Mild left ventricular hypertrophy. Right Ventricle The right ventricle is normal in size and function. Right Atrium The right atrium is normal in size. Left Atrium The left atrium is normal in size. Mitral Valve Thickened mitral valve. Mild mitral annular calcification. Moderate mitral regurgitation Aortic Valve Thickened aortic valve. Tricuspid Valve Mild tricuspid valve regurgitation. Pulmonic Valve Pulmonic valve not well visualized. Pericardium Normal pericardium without effusion. Aorta Normal ascending aorta dimension. CONCLUSIONS Normal left ventricular size and systolic function, EF 59 %. No regional wall motion abnormalities. Mild left ventricular hypertrophy. Thickened mitral valve. Mild mitral annular calcification. Moderate mitral regurgitation. Thickened aortic valve. Mild tricuspid valve regurgitation. Estimated pulmonary artery peak systolic pressure of 49 mmHg There is no pericardial effusion. No previous study is available for comparison. Dr Sury Ivory MD [facility] (Electronically Signed) Final Date: 15 June 2021 09:45 S
--- NOTE | 2021-06-14 09:22 | PC.PHAR ---
pt states she takes care of her own medications-pt states she gets all her meds except her [facility]co [facility] gave med list and pt verified them-pt states she thinks that all the otc medications she takes also
--- NOTE | 2021-06-14 09:40 | ECG_ITS ---
[facility] Test Date: 2021-06-14 Pat Name: Irene Zuluaga Department: Room: Gender: Female Foster Winder: : 1960 Requested By: Mando Musa Order Number: [id number] Pura MD: Kvng Gloria M.D. Measurements Intervals [place] Rate: 89 P: 42 HI: 135 QRS: 10 QRSD: 75 T: 66 QT: 366 QTc: 446 Interpretive Statements SINUS RHYTHM POSSIBLE LEFT ATRIAL ENLARGEMENT [-0.1mV P-WAVE IN V1/V2] ST DEPRESSION, CONSIDER SUBENDOCARDIAL INJURY [0.1+ mV ST DEPRESSION] Compared to ECG 06/14/2021 05:30:38 ST (T wave) deviation now present Sinus tachycardia no longer present T-wave abnormality no longer present Electronically Signed On 06-14-2021 23:33:55 CDT by Kvng Gloria M.D. [id number]
[2021-06-14 10:58] LABS: Troponin 5 6HR 253.7 ng/L (0-10); Troponin 5 6HR Delta 116.7 ng/L (0-12)
--- NOTE | 2021-06-14 11:04 | PC.NURSE ---
Dr kennedy notified of 6h trop and delta trop.
[2021-06-14] MEDS: famotidine 20 mg/2 mL INJ IVP (11:24)
[2021-06-14] MEDS: nitroglycerin drip 50 MG/250 ML PREMIX IV (11:24)
[2021-06-14] MEDS: sodium chloride 0.9% 1,000 ML 50 ML IV (13:01)
[2021-06-14 13:19] LABS: Thyroid Stimulating Hormone 0.06 uIU/mL (0.27-4.20)
--- NOTE | 2021-06-14 16:00 | XACV_ITS ---
Exam Room: 1 Ht: 170 cm Wt: 73 kg BSA: 1.86 m2 Gender: Female : 1960 Any Known Allergies: Other Exam Priority: Routine Indication(s): - Non-ST elevation CA Procedure(s): Procedure Description: Diagnostic procedure Procedure Description: PCI procedure Procedure Description: Drug Eluting Coronary Stent Procedure Description: PTCA Procedure Description: Miscellaneous Procedure Description: ACT Procedure Description: Coronary Angiography Diagnostic Cath Status: Urgent Diagnostic Findings * Left Main has minor luminal irregularities. * Mid Left Anterior Descending: significant 80% stenosis, DORA: 3 flow. * Mid Circumflex: critical 95% stenosis, DORA: 3 flow. * Proximal Right Coronary Artery to Mid Right Coronary Artery: total occlusion, DORA: 3 flow. * First Obtuse Marginal Branch Segment: significant 80% stenosis, DORA: 3 flow. * Coronary angiography shows co-dominance. PCI Status: Urgent PCI Indication: NSTE - ACS Interventional Findings * Procedure details: We engaged left main artery with XB 3.5 guide catheter. IV heparin was administered to maintain an ACT above 250 seconds. A 0.014 run-through guidewire was used to cross the OM stenosis and was placed in the distal vessel. We predilated the stenosis with a 2.5 x 12 mm noncompliant balloon. This was followed by placement of 2.75 x 12 mm resolute [place] drug-eluting stent. We then turned our attention to mid left circumflex artery stenosis. Guidewire was placed in the distal left circumflex artery. We predilated the stenosis with a 2.5 x 12 mm semicompliant balloon. This was followed by placement of 2.25 x 15 mm resolute [place] drug-eluting stent. At this time patient started complaining of chest pain. Angiogram showed haziness prior to OM branch stent. Possible thrombus was seen. We placed another 2.75 x 15 mm resolute [place] stent from proximal left circumflex artery into the OM overlapping with the first stent. At this time final angiogram was performed that showed excellent stent expansion, DORA-3 flow and no residual stenosis. Guidewire and guide catheter were removed. Patient left the Paper Processing Machine Helper in a stable condition. * Mid Circumflex: 95% stenosis treated with a AB TREK 2.50X12 RX BALLOON, and MDT R NOY 2.25X15 CANDELARIA. 0% residual stenosis, DORA: 3 flow. * First Obtuse Marginal Branch Segment: 80% stenosis treated with a AB TREK 2.50X12 RX BALLOON, MDT R NOY 2.75X12 CANDELARIA, and MDT R NOY 2.75X15 CANDELARIA. 0% residual stenosis, DORA: 3 flow. Conclusions 1. Severe multivessel coronary artery disease 2. including 3. severe mid LAD stenosis, severe mid left circumflex 4. stenosis and severe 5. OM stenosis. 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 6. Given patient's ongoing symptoms 7. , multiple comorbidities 8. and heart failure, we decided to treat the culprit arteries which were OM and left circumflex 9. artery. 10. Successful revascularization of OM 11. and 12. mid left circumflex artery with CANDELARIA x3.. 13. Mid Circumflex was treated with a Balloon, and Drug Eluting Stent. 14. First Obtuse Marginal Branch Segment was treated with a Balloon, Drug Eluting Stent, and Drug Eluting Stent. Recommendations * Aspirin Plavix for at least 1 year. * Transfer to ICU. * Patient will need diuresis before staged PCI of mid LAD is performed. * High intensity statin therapy. * Aggressive risk factor control. Interventional RX Recommendation: PCI w/o planned CABG Diagnostic RX Recommendation: PCI w/o planned CABG Anticoagulation: Heparin Pressures Phase:Rest AO : 109 / 72 ( 89 ) @ 3:41:00 PM 108 / 72 ( 89 ) @ 3:42:00 PM 120 / 70 ( 91 ) @ 3:54:00 PM 119 / 77 ( 95 ) @ 3:57:00 PM 101 / 72 ( 85 ) @ 4:01:00 PM 144 / 93 ( 114 ) @ 4:06:00 PM 151 / 96 ( 119 ) @ 4:07:00 PM 148 / 100 ( 121 ) @ 4:17:00 PM 133 / 102 ( 116 ) @ 4:19:00 PM 116 / 92 ( 103 ) @ 4:24:00 PM 174 / 116 ( 142 ) @ 4:30:00 PM Clinical Evaluation EBL: 5mL-10mL Procedural Details Procedure Consent Obtained. Current Diagnosis : NSTEMI. Rosita Benedict RN circulating. Equipment: 6F - Radial. Cardiac Cath Pack. ACIST Manifold Kit Model BT 2000. Heparinized Saline (2 units/mL), 1000 mL bag. Pre-Procedure Time Out. Identified patient by full name and date of as verbalized by the patient/guarantor. Does the consent match the physician's order: Yes. Accurate & Complete Informed Consent: Yes. Inpatient/Outpatient History & Physical on Chart: Yes. If H&P is completed, is and addenduem needed: No; If yes, is the addendum complete: N/A. Visualize and Verify Site with Patient/Guarantor: N/A. Relevant Radiology Images available: Yes. Pre-op teaching completed and patient verbalized understanding. The risks, benefits, and alternatives of sedation and/or procedure were discussed by physician. The patient agrees to continue. Procedure started. HA Clinical Fraility Score: 3: Managing Well. Paper Processing Machine Helper Indications: ACS > 24 hours. Chest Pain Symptom Assessment: Typical Angina Symptoms. Correct patient, site and procedure confirmed by cath team. Current diagnosis: NSTEMI. PERRLA. Strong, equal hand awning hanger supervisor bilaterally. Lungs clear x 5 lobes. IV Site on Arrival: 18 gauge in the right wrist. IV Site on Arrival: 18 gauge in the left hand. IV Fluids: 0.9% NaCl at KVO. 0 mL infused prior to rd lab technician. Pre Procedural Pulses: bilateral radial was 3+. Oxygen started at 2liters/min via nasal canula. right groin was prepped with chloroprep then draped in the usual sterile fashion. right radial was prepped with chloroprep then draped in the usual sterile fashion. Physician notified. Baseline sample Acquired. HR: 103 BPM. Physician arrived. Physician scrubbed in. Immediate Pre-Procedure Time Out. Correct Patient: Yes; Correct Procedure: Yes; Correct Site: Yes; Correct Patient Position: Yes; Correct Supplies: Yes; Dried Flammable Prep: Yes; Blood Products Available: N/A;. Lidocaine 1% infiltrated to the right groin. Arterial access obtained with micropuncture set. wire out. Inventory is TR Glidewire Angled Stiff Shaft .035 260cm. glidewire inserted through the sheath. A 5 thai JL4 catheter in over wire. Multiple views taken of left coronary artery. Catheter removed over the exchange wire. A 5 thai JR4 catheter in over wire. Multiple views taken of right coronary artery. Catheter removed over the exchange wire. Physician scrubbed out. 6 thai XB 3.5 guide catheter was inserted over the wire. Runthrough guidewire was advanced through the guide catheter to lesion in the OM. Inflation number : 1 A AB TREK 2.50X12 RX BALLOON was prepped and advanced across the 1st Ob [place] , then inflated to 10 JEREMY for 0:29 seconds. Inflation number: 2 The AB TREK 2.50X12 RX BALLOON was reinflated across the 1st Ob [place], to 8 JEREMY for 0:21 seconds. Inflation number: 3 The AB TREK 2.50X12 RX BALLOON was reinflated across the 1st Ob [place], to 8 JEREMY for 0:17 seconds. Inflation number: 4 The AB TREK 2.50X12 RX BALLOON was reinflated across the 1st Ob [place], to 8 JEREMY for 0:17 seconds. Balloon out. Results checked. Inflation Number : 5 A ISH R NOY 2.75X12 CANDELARIA -Lot Number# _[id number]_ EXP: 12/01/2021 was prepped and advanced across the 1st Ob [place]. The stent was deployed at 12 JEREMY for 0:30 seconds. Stent balloon out over wire. Results checked. wire redirected the the mid CX. Inflation number: 1 The AB TREK 2.50X12 RX BALLOON was reinflated across the Mid CX, to 8 JEREMY for 0:20 seconds. Inflation number: 2 The AB TREK 2.50X12 RX BALLOON was reinflated across the Mid CX, to 8 JEREMY for 0:20 seconds. Balloon out. Patient placed on 6 liters of oxygen by oximask. Inflation Number : 3 A MDT R NOY 2.25X15 CANDELARIA -Lot Number# _[id number]_ EXP: 11/23/2022 was prepped and advanced across the Mid CX. The stent was deployed at 12 JEREMY for 0:25 seconds. Stent balloon out over wire. Results checked. Wire out. Results checked. Runthrough guidewire was advanced through the guide catheter to lesion in the OM. AP Pads placed on the patient. Inflation number: 6 The AB TREK 2.50X12 RX BALLOON was reinflated across the 1st Ob [place], to 12 JEREMY for 0:16 seconds. Inflation number: 7 The AB TREK 2.50X12 RX BALLOON was reinflated across the 1st Ob [place], to 12 JEREMY for 0:11 seconds. Inflation number: 8 The AB TREK 2.50X12 RX BALLOON was reinflated across the 1st Ob [place], to 12 JEREMY for 0:09 seconds. Balloon out. Results checked. Inflation Number : 9 A MDT R NOY 2.75X15 CANDELARIA -Lot Number# [id number] EXP: 02/28/2024 was prepped and advanced across the 1st Ob [place]. The stent was deployed at 12 JEREMY for 0:24 seconds. nitro turned up to 20mcg/min. Stent balloon out over wire. Results checked. Results checked. patient placed on a 100% non-rebreather. Dr. Garibay called to assist. ACT drawn. Results 220 seconds. Therapeutic limits - pre-heparin administration 90-150 seconds and monitoring heparin during a vascular procedure >[address] Garibay arrived. A 16Fr valladares catheter was inserted without resistance maintaining sterile technique. Bag to gravity with clear urine returning. Wire out. Results checked. Guide catheter out. The 6Fr sheath was exchanged for a new 6Fr sheath. Sheath(s) sutured into position with 2-0 silk and sterile 4x4's and Op-site applied over the site. No oozing or signs and symptoms of hematoma noted. Arterial sheath flushed and connected to tranducer and pressure bag with heparinized saline. Respiratory called to have a Bipap ready in the ICU room. A Suture was successful obtaining hemostatsis at the Right Femoral artery insertion site. TOY. Strong, equal hand awning hanger supervisor bilaterally. No VTE prophylaxis required. Contrast type used: Omnipaque 300 mgI/mL, 500 mL bottle. Medication's Wasted: Heparin = 3000 units. Total IV fluids: 62 mL. Estimated blood loss: 5mL-10mL. Procedure completed. Medication's Wasted: Other = Lasix [address] Gloria attempted to call family with an update and there was no answer. Patient transferred by bed to ICU. Vital chart was stopped. Access Site Site: Right Femoral artery Sheath Size: 6 Fr Hemostasis Method: Suture Hemostasis Success: Successful Procedure Medications Start: 4:26 PM Stop: 4:26 PM Medication: Versed Amount: 1 mg Route: I.V. Start: 4:26 PM Stop: 4:26 PM Medication: Fentanyl Amount: 50 mcg Route: I.V. Start: 4:27 PM Stop: 4:27 PM Medication: Versed Amount: 1 mg Route: I.V. Start: 4:50 PM Stop: 4:50 PM Medication: Heparin Amount: 7000 units Route: I.V. Start: 4:53 PM Stop: 4:53 PM Medication: Heparin Amount: 1000 units Route: I.V. Start: 4:59 PM Stop: 4:59 PM Medication: Versed 1 mg and Fentanyl 25 mcg Amount: 1 Route: I.V. Start: 5:07 PM Stop: 5:07 PM Medication: Nitrogylcerin Amount: 200 mcg Route: I.C. Start: 5:08 PM Stop: 5:08 PM Medication: Heparin Amount: 2000 units Route: I.V. Start: 5:19 PM Stop: 5:19 PM Medication: Lasix (furosemide) Amount: 40 mg Route: I.V. Start: 5:22 PM Stop: 5:22 PM Medication: Nitrogylcerin Amount: 5 mcg/min Route: I.V. drip Start: 5:27 PM Stop: 5:27 PM Medication: Aggrastat 12.5 mg/250 mL Amount: 36 ml Route: I.V. bolus Start: 5:27 PM Stop: 5:27 PM Medication: Aggrastat 12.5 mg/250 mL Amount: 13 ml/hr Route: I.V. drip Start: 5:30 PM Stop: 5:30 PM Medication: Versed 1 mg and Fentanyl 25 mcg Amount: 1 Route: I.V. Start: 5:34 PM Stop: 5:34 PM Medication: Nitrogylcerin Amount: 200 mcg Route: I.C. Start: 5:35 PM Stop: 5:35 PM Medication: Heparin Amount: 2000 units Route: I.V. Start: 5:41 PM Stop: 5:41 PM Medication: Versed Amount: 1 mg Route: I.V. Start: 5:49 PM Stop: 5:49 PM Medication: Plavix Amount: 600 mg Route: P.O. I, the attending physician, have reviewed and verified all procedure medications. Yes, all medications given per verbal order History/Risk Factors Hypertension: Yes Dyslipidemia: Yes Peripheral Arterial Disease (PAD): No Myocardial Infarction (CA): No Obesity: Yes Renal Disease: No Prior Interventions PCI: No CABG: No Valve Surgery: No Report Signatures Finalized by Kvng Gloria MD on 06/26/2021 09:01 PM
[2021-06-14 19:39] LABS: Glucose Point of Care 147 mg/dL (70-110)
[2021-06-14] MEDS: gabapentin 300 mg Capsule PO (20:57)
[2021-06-14 21:15] LABS: Partial Thromboplastin Time 199.5 SECONDS (23.9-36.7)
[2021-06-15] VITALS (56 sets, daily range): BP systolic 104–129; BP diastolic 60–83; PULSE 72–103; RESP 9–36; TEMP 36.8; O2SAT 64–96; BMI 26.6
[2021-06-15 00:16] LABS: Partial Thromboplastin Time 37.8 SECONDS (23.9-36.7)
--- NOTE | 2021-06-15 02:00 | PC.NURSE ---
Pulled Sheath Pulled sheath at 0140 this morning, held pressure above sheath site for 20 minutes. No hematoma formation before, during or after removing sheath. Covered site with gauze and tegaderm. Will continue to monitor site for any signs of bleeding/hematoma formation. Educated patient on activity restrictions, patient verbalized understanding.
[2021-06-15] MEDS: morphine 4 mg/mL SDV 1 mL IVP ×3 (02:38→20:48)
[2021-06-15 04:15] LABS: Basophils % 0.2 %; Hematocrit 38.4 % (37.0-47.0); Hemoglobin 11.6 g/dL (11.5-15.3); Lymphocytes # 1.7 10^3/uL (0.8-4.8); Lymphocytes % 11.3 %; Mean Corpuscular HGB Conc 30.2 g/dL (30.0-36.0); Mean Corpuscular Hemoglobin 24.2 pg (28.0-34.0); Mean Corpuscular Volume 80.2 fl (81-99); Monocytes # 0.7 10^3/uL (0.2-0.9); Neutrophils # 12.37 10^3/uL (1.8-7.7); Neutrophils % 83.2 %; Nucleated Red Blood Cells % 0 %; Platelet Count 395 10^3/cmm (130-400); Red Blood Count 4.79 10^6/uL (4.1-5.3); Red Cell Distribution Width 17.2 % (12.1-15.1); White Blood Count 14.9 10^3/uL (4.0-10.0)
[2021-06-15 04:29] LABS: Partial Thromboplastin Time 27.8 SECONDS (23.9-36.7)
[2021-06-15 04:47] LABS: Alanine Aminotransferase 13 U/L (0-33); Albumin Level 3.6 g/dL (3.5-5.2); Alkaline Phosphatase 79 IU/L (35-105); Anion Gap 20.5 (5-19); Aspartate Amino Transferase 33 U/L (0-32); Blood Urea Nitrogen 21 mg/dL (8-23); Calcium 9.2 mg/dL (8.5-10.5); Carbon Dioxide 27 mmol/L (22-29); Chloride 97 mmol/L (98-107); Globulin 3.3 g/dL (1.3-4.6); Glomerular Filtration Rate 101.3 mL/min (90-130); Glucose 151 mg/dL (65-115); Magnesium 1.7 mg/dL (1.7-2.3); Osmolality Calculated 298 mOsm/kg (285-295); Potassium 3.5 mmol/L (3.5-5.1); Sodium 141 mmol/L (136-145); Total Bilirubin 0.5 mg/dL (0.15-1.2); Total Protein 6.9 g/dL (6.6-8.7)
[2021-06-15] MEDS: gabapentin 400 mg Capsule 800 MG PO (06:10)
[2021-06-15] MEDS: enoxaparin 80 mg/0.8 mL Syringe 70 MG SUBCUT (06:10)
[2021-06-15] MEDS: clopidogrel 75 mg Tablet PO (06:10)
--- NOTE | 2021-06-15 06:22 | PC.NURSE ---
Shift Summary Frequent safety and comfort rounds continue. Orders and/or nursing care completed as indicated. Patient monitored for response to intervention and treatment(s). Education provided includes activity restrictions post cardiac cath. Patient verbalizes understanding of teaching. Patient remains alert and oriented x4 and she is on 4LNC. No wounds or skin issues other than right groin sheath insertion site which is covered with tegaderm dressing. Please see post cardiac cath flowsheet for more detail. Patient has Nitro drip infusing in the right hand IV, left AC IV is saline locked at this time. Nash catheter drained 1600 mls of bright yellow urine overnight. Will continue to monitor.
--- NOTE | 2021-06-15 08:18 | PM.PN ---
Subjective Subjective: Interval history: Patient had coronary angiogram performed last evening. She has severe multivessel coronary artery disease. RCA was CUTTER AND EDGE TRIMMER with collaterals from left system. She had severe stenosis in OM1 and left circumflex artery that were revascularized with CANDELARIA x2. She developed stent thrombosis of the OM stent during the procedure. Needed another stent to revascularize that area. She stabilized after that. Mid LAD had a severe stenosis which will be revascularized as a staged procedure. This morning patient is doing better. Her breathing has improved. Denies any chest pain. Vitals/I&O/Wt Last Vital Signs Temp 98.3 F 06/15/21 04:00 Pulse 94 06/15/21 06:15 Resp 24 H 06/15/21 06:15 BP 108/66 06/15/21 06:15 Pulse Ox 90 06/15/21 06:15 06/14/21 06/15/21 06/15/21 22:59 06:59 14:59 Intake Total 11.4 / 11.4 1532.5 / 1543.9 Output Total 1600 / 1600 Balance 11.4 / 11.4 -67.5 / -56.1 Weight last 48 hrs Weight 170 lb 8 oz Weight 160 lb Physical Exam Narrative: EXAM NARRATIVE: General : Alert and oriented x 3.on nasal cannula HEENT: PERRLA Neck is supple Lungs has bilateral crackles Cardiovascular: Regular rate and rhythm, has grade 2/6 murmur Abdomen is soft Extremities: no edema Skin no rash Neuro no focal deficits. Urinary Catheter Management^: Nash: Cath Placed During This Visit: no Reason for Continuing Indwelling Catheter: Accurate Measurement of Urinary Output in Critically Ill Patients Data : 06/16/21 05:02 06/16/21 05:02 Micro: Microbiology 06/14/21 06:34 Blood Culture - Preliminary Blood NEGATIVE TO DATE 06/14/21 06:29 Blood Culture - Preliminary Blood NEGATIVE TO DATE A&P Assessment and plan (1) Non-ST elevation NJ (NSTEMI): Status: Acute (2) Congestive heart failure: Status: Acute (3) Type 2 diabetes mellitus: Status: Acute (4) Hyperlipidemia: Status: Acute (5) Hypertension: Status: Acute Patient has presented with NSTEMI and congestive heart failure Patient had multivessel coronary artery disease with CUTTER AND EDGE TRIMMER of RCA, severe mid LAD stenosis and severe stenosis of OM 1. She underwent revascularization of left circumflex and OM stenosis. These appeared to be the culprit lesions for a non-ST elevation NJ. She had stent thrombosis of OM stent and required an additional stent to cover that area. She stabilized after that. Plan for staged revascularization of LAD in 2 to 3 days with anesthesia support as patient has significant back pain and has difficulty laying flat. Continue aspirin and Plavix Echocardiogram showed normal LV systolic function with moderate mitral regurgitation. Continue IV diuresis for now. Close monitoring of I and Os Thank you for involving us with care of this patient. We will continue to follow. Please call with questions. Attestations Medical Necessity Statement*: Care expected to cross 2 midnights. Coding Level of Care Code Acute Home And School Visitor for Lucy Gibson Diagnoses Non-ST elevation NJ (NSTEMI) I21.4 Congestive heart failure I50.9 Type 2 diabetes mellitus E11.9 Hyperlipidemia E78.5 Hypertension I10
[2021-06-15] MEDS: FUROsemide 10 mg/mL SDV 4mL 40 MG IVP ×2 (08:25→20:10)
[2021-06-15] MEDS: allopurinol 100 mg Tablet PO (08:25)
[2021-06-15] MEDS: aspirin 325 mg Tablet PO (08:25)
[2021-06-15] MEDS: metoprolol tartrate 25 mg Tablet PO ×2 (08:25→17:50)
[2021-06-15] MEDS: pantoprazole DR 40 mg Tablet PO (08:25)
[2021-06-15] MEDS: lisinopril 10 mg Tablet PO (08:26)
--- NOTE | 2021-06-15 10:00 | P.PN_ITS ---
Subjective Subjective: Interval history: Irene reports she does not have any chest discomfort currently. Somewhat down that she has to have another angiogram. Events of yesterday noted. Medications: Reviewed: Yes Vitals/I&O/Wt Last Vital Signs Temp 98.3 F 06/15/21 04:00 Pulse 94 06/15/21 06:15 Resp 24 H 06/15/21 06:15 BP 108/66 06/15/21 06:15 Pulse Ox 90 06/15/21 06:15 06/14/21 06/15/21 06/15/21 22:59 06:59 14:59 Intake Total 11.4 / 11.4 1532.5 / 1543.9 Output Total 1600 / 1600 Balance 11.4 / 11.4 -67.5 / -56.1 Weight last 48 hrs Weight 77.337 kg Weight 72.575 kg Physical Exam Narrative: EXAM NARRATIVE: General exam is a white female no distress Neck is supple no lymphadenopathy or thyromegaly. Carotid artery endarterectomy scars are noted. Lungs crackles bibasilar Cardiovascular regular rate and rhythm with a 2/6 systolic murmur heard best in the mitral area. Crackles bibasilar Abdomen is soft with positive bowel sounds. No obvious organomegaly Extremities no cyanosis clubbing or edema, cap refill brisk Urinary Catheter Management^: Nash: Cath Placed During This Visit: no Reason for Continuing Indwelling Catheter: Accurate Measurement of Urinary Output in Critically Ill Patients Data : 06/15/21 04:10 06/15/21 04:10 Micro: Microbiology 06/14/21 06:34 Blood Culture - Preliminary Blood NEGATIVE TO DATE 06/14/21 06:29 Blood Culture - Preliminary Blood NEGATIVE TO DATE A&P Assessment and plan (1) Non-ST elevation IA (NSTEMI): Placed on full dose anticoagulation admission. This was discontinued after angiogram. Will clarify with cardiology if this should be restarted or patient should go to DVT prophylaxis dosing. Continue aspirin and Plavix Continue beta-charis High intensity statin At this point nitroglycerin drip can be discontinued if she has no further chest discomfort Appreciate cardiology consultation. Multiple drug-eluting stents placed yesterday, circumflex with plans to intervene on LAD potentially Sunday. Status: Acute (2) Congestive heart failure: Await echocardiogram Discontinue IV fluids Continue furosemide 40 mg IV every 12 hours Wean oxygen as tolerated Status: Acute Additional A&P Information History of asthma. DuoNeb as needed. No evidence of exacerbation currently. Hypertension, continue home medications Hyperlipidemia, high intensity statin History of CVA Allow natural , with the exception of when she undergoes angiogram Lovenox for DVT prophylaxis Attestations Medical Necessity Statement*: Needs continued hospitalization for further intervention secondary to critical coronary disease LAD Coding Level of Care Code Acute Logistics Planning Engineer for Lucy Gibson Diagnoses Non-ST elevation IA (NSTEMI) I21.4 Congestive heart failure I50.9
--- NOTE | 2021-06-15 10:00 | PC.CHAP ---
Pastoral Care Encounter/Spiritual Assessment Type of Contact [] Declined diamond sizer and sorter visit [] Patient/Family/Request visit [] Outpatient visit [] Follow-up visit [] Physician referral [] Code/Alert [x] Routine visit [] Staff referral [] Actively dying [] Patient sleeping [] Family support [] [] Out of room [] Palliative care [] [x] Receiving care in room [] Pre-surgical visit [] Trauma [] Long length of stay [x] ICU visit [] Other: Relational/Emotional Strength [] Patient feels connected with others/family/visitors/staff [] Distress [] Loneliness/isolation [] Abandonment Spirituality of Patient [x] Person of Barbie [] Attends Pentecostal of their Barbie [] Believes in Prayer [] Reads Bible or Bahai materials [] There are Spiritual issues to be addressed Sheetmetal Patternmaker Interventions [x] Prayer [x] Active listening [x] Non-anxious presence [x] Spiritual/emotional support [] Crisis/trauma care [] Spiritual counseling [] Bereavement support [] Provided bereavement packet [x] Provided Bible/devotional materials [] Provided toy/stuffed animal, coloring book to patient or family member [] Provided Communion [] Anointing/[place] [] Salvation [x] Completed spiritual assessment [] Other: Impact on Illness or Injury [] Angry [] Fearful [] Anxious [] Often cries [] Exhaustion [] Unable to work [] Unable to attend gnosticist [] Unable to walk/stand [] Unable to read [] Unable to drive [] Unable to eat/drink [] Unable to sleep [] Unable to be with family [] Patient intubated [] Other: Summary Time spent with patient
[2021-06-15] MEDS: enoxaparin 40 mg/0.4 mL Syringe SUBCUT (10:59)
[2021-06-15] MEDS: potassium chloride ER 20 mEq Tablet 40 MEQ PO (11:00)
--- NOTE | 2021-06-15 11:17 | PC.NURSE ---
0800 dr. bernal in. right groin site w/o edema. dressing dry and intact.
--- NOTE | 2021-06-15 11:49 | PC.NURSE ---
0800 ntg. gtt turned off.
--- NOTE | 2021-06-15 13:05 | PC.NURSE ---
remains up in chair.
[2021-06-15] MEDS: gabapentin 400 mg Capsule PO (13:54)
--- NOTE | 2021-06-15 14:09 | PC.NURSE ---
found pt. sitting in chair crying. states she is hurting really bad, pain is in hip area. assisted back to bed, m.s. given. ice antonino to groin area.
[2021-06-15] MEDS: azithromycin 250 mg Tablet 500 MG PO (15:50)
[2021-06-15] MEDS: cefTRIAXone 1,000 MG in sodium chloride 0.9% (plus) 50 ML 100 MG IV (15:50)
--- NOTE | 2021-06-15 18:18 | PC.NURSE ---
pts. caregiver here. concerned about skin breakdown. 2nd message to dietary re: no beef products. pt. states it makes her hurt worse.
--- NOTE | 2021-06-15 18:23 | PC.NURSE ---
Visitor voiced concern about skin breakdown on patient's bottom. Changed absorbent pad and assessed patient. No skin breakdown or pressure injury noted. Patient wanted visitor to get education about skin breakdown and skin hygiene. Patient wanted visitor to see how nurse changed absorbent pad and provided skin hygiene. Provided education about proper cleaning and pressure ulcers prevention. Showed patient and visitors the stages of pressure injuries. Educated about preventing skin breakdown and pressure injury.
[2021-06-15] MEDS: atorvastatin 40 mg Tablet 80 MG PO (20:10)
[2021-06-15] MEDS: gabapentin 300 mg Capsule PO (20:10)
[2021-06-16 05:00] VITALS: BP 125/74; PULSE 83; RESP 20
[2021-06-16] MEDS: gabapentin 400 mg Capsule 800 MG PO (05:03)
[2021-06-16] MEDS: clopidogrel 75 mg Tablet PO (05:03)
--- NOTE | 2021-06-16 05:28 | NUR.SHIFT ---
Shift Note Frequent safety and comfort rounds continue. Orders and/or nursing care completed as indicated. Patient monitored for response to intervention and treatment(s). Education provided includes 02 management and safety.]. Patient verbalizes understanding. Will continue to monitor. All vs and assessments as charted. No distress noted at this time.
[2021-06-16 05:30] VITALS: BP 112/60; PULSE 80; RESP 16
[2021-06-16 05:41] LABS: Basophils % 0.3 %; Eosinophils # 0.1 10^3/uL (0.0-0.8); Eosinophils % 1.1 %; Hematocrit 34.2 % (37.0-47.0); Hemoglobin 10.1 g/dL (11.5-15.3); Lymphocytes # 2.3 10^3/uL (0.8-4.8); Lymphocytes % 31.8 %; Mean Corpuscular HGB Conc 29.5 g/dL (30.0-36.0); Mean Corpuscular Hemoglobin 23.8 pg (28.0-34.0); Mean Corpuscular Volume 80.5 fl (81-99); Mean Platelet Volume 12.1 fL (7.4-10.4); Monocytes # 0.5 10^3/uL (0.2-0.9); Monocytes % 6.7 %; Neutrophils # 4.39 10^3/uL (1.8-7.7); Neutrophils % 59.8 %; Nucleated Red Blood Cells % 0 %; Platelet Count 254 10^3/cmm (130-400); Red Blood Count 4.25 10^6/uL (4.1-5.3); Red Cell Distribution Width 16.8 % (12.1-15.1); White Blood Count 7.3 10^3/uL (4.0-10.0)
[2021-06-16 05:58] VITALS: PULSE 83
[2021-06-16 06:21] LABS: Anion Gap 13.5 (5-19); Blood Urea Nitrogen 19 mg/dL (8-23); Calcium 8.8 mg/dL (8.5-10.5); Carbon Dioxide 29 mmol/L (22-29); Chloride 99 mmol/L (98-107); Glomerular Filtration Rate 161.7 mL/min (90-130); Glucose 123 mg/dL (65-115); Osmolality Calculated 290 mOsm/kg (285-295); Potassium 3.5 mmol/L (3.5-5.1); Sodium 138 mmol/L (136-145)
[2021-06-16 08:12] LABS: Free T4 Free Thyroxine 1.58 ng/dL (0.82-1.77); T3 Free 2.5 PG/ML (2.0-4.4)
[2021-06-16] MEDS: allopurinol 100 mg Tablet PO (08:33)
[2021-06-16] MEDS: azithromycin 250 mg Tablet 500 MG PO (08:33)
[2021-06-16] MEDS: pantoprazole DR 40 mg Tablet PO (08:33)
[2021-06-16] MEDS: lisinopril 10 mg Tablet PO (08:33)
[2021-06-16] MEDS: metoprolol tartrate 25 mg Tablet PO ×2 (08:33→18:06)
[2021-06-16] MEDS: FUROsemide 10 mg/mL SDV 4mL 40 MG IVP ×2 (08:33→19:42)
[2021-06-16] MEDS: aspirin 325 mg Tablet PO (08:33)
--- NOTE | 2021-06-16 09:25 | PM.PN ---
Subjective Subjective: Interval history: Irene reports no chest discomfort overnight. She is less short of breath. She is hopeful she can get an angiogram tomorrow. Medications: Reviewed: Yes Vitals/I&O/Wt Last Vital Signs Temp 98.3 F 06/15/21 04:00 Pulse 83 06/16/21 05:58 Resp 16 06/16/21 05:30 BP 112/60 06/16/21 05:30 Pulse Ox 94 06/15/21 20:48 06/15/21 06/16/21 06/16/21 22:59 06:59 14:59 Intake Total 530 / 950 240 / 1190 Output Total 1450 / 1450 1400 / 2850 Balance -920 / -500 -1160 / -1660 Weight last 48 hrs Weight 75.41 kg Weight 77.337 kg Physical Exam Narrative: EXAM NARRATIVE: General exam is a white female no distress Neck is supple no lymphadenopathy or thyromegaly. Carotid artery endarterectomy scars are noted. Lungs crackles bibasilar Cardiovascular regular rate and rhythm with a 2/6 systolic murmur heard best in the mitral area. Less crackles are noted bibasilar Abdomen is soft with positive bowel sounds. No obvious organomegaly Extremities no cyanosis clubbing or edema, cap refill brisk Urinary Catheter Management^: Nash: Cath Placed During This Visit: no Reason for Continuing Indwelling Catheter: Accurate Measurement of Urinary Output in Critically Ill Patients Data : 06/16/21 05:02 06/16/21 05:02 Micro: Microbiology 06/14/21 06:34 Blood Culture - Preliminary Blood NEGATIVE TO DATE 06/14/21 06:29 Blood Culture - Preliminary Blood NEGATIVE TO DATE A&P Assessment and plan (1) Non-ST elevation NV (NSTEMI): Continue aspirin and Plavix Continue beta-charis Continue high intensity statin Appreciate cardiology consultation. Multiple drug-eluting stents placed 06/14, circumflex with plans to intervene on LAD potentially Sunday. Lovenox has gone to full dose to DVT prophylaxis dosing. Status: Acute (2) Congestive heart failure: Echocardiogram demonstrated preserved EF, moderate mitral regurgitation Continue furosemide 40 mg IV every 12 hours Wean oxygen as tolerated Heart failure is becoming more compensated Status: Acute Additional A&P Information Question of pneumonia on admission. Currently on Rocephin and azithromycin. History of asthma. DuoNeb as needed. No evidence of exacerbation currently. Hypertension, continue home medications Hyperlipidemia, high intensity statin History of CVA Abnormal TSH. Free T4 and T3 ordered. These were normal. TSH will need to be repeated as an outpatient. Allow natural , with the exception of when she undergoes angiogram Lovenox for DVT prophylaxis May transfer to [facility] Attestations Medical Necessity Statement*: Needs continued hospitalization for definitive treatment of LAD stenosis with angiogram hopefully tomorrow. Coding Level of Care Code Acute Content Architect for Lucy Gibson Diagnoses Non-ST elevation NV (NSTEMI) I21.4 Congestive heart failure I50.9
--- NOTE | 2021-06-16 10:05 | PC.CHAP ---
Pastoral Care Encounter/Spiritual Assessment Type of Contact [] Declined bilingual kindergarten teacher visit [] Patient/Family/Request visit [] Outpatient visit [] Follow-up visit [] Physician referral [] Code/Alert [x] Routine visit [] Staff referral [] Actively dying [] Patient sleeping [] Family support [] [] Out of room [] Palliative care [] [] Receiving care in room [] Pre-surgical visit [] Trauma [] Long length of stay [x] ICU visit [] Other: Relational/Emotional Strength [] Patient feels connected with others/family/visitors/staff [] Distress [] Loneliness/isolation [] Abandonment Spirituality of Patient [x] Person of Barbie [] Attends Anabaptism of their Barbie [] Believes in Prayer [] Reads Bible or Samaritan materials [] There are Spiritual issues to be addressed Healthcare Market Consultant Interventions [x] Prayer [x] Active listening [x] Non-anxious presence [x] Spiritual/emotional support [] Crisis/trauma care [] Spiritual counseling [] Bereavement support [] Provided bereavement packet [] Provided Bible/devotional materials [] Provided toy/stuffed animal, coloring book to patient or family member [] Provided Communion [] Anointing/[place] [] Salvation [x] Completed spiritual assessment [] Other: Impact on Illness or Injury [] Angry [] Fearful [] Anxious [] Often cries [] Exhaustion [] Unable to work [] Unable to attend spiritism [] Unable to walk/stand [] Unable to read [] Unable to drive [] Unable to eat/drink [] Unable to sleep [] Unable to be with family [] Patient intubated [] Other: Summary patient sitting up in chair... breakfast.. and enjoying her Bible... shared a prayer request for a friend... Time spent with patient 5 min
[2021-06-16] MEDS: enoxaparin 40 mg/0.4 mL Syringe SUBCUT (10:10)
--- NOTE | 2021-06-16 10:32 | PC.NUTR ---
Nutrition note: Received voicemail from ICU nurse stating patient does not eat beef products at all. Noted this is included in diet order at this time, and dietary staff aware.
--- NOTE | 2021-06-16 12:42 | PM.PN ---
Subjective Subjective: Interval history: Patient is doing well. She denies any chest pain. Her breathing has improved significantly. Her heart rate is better controlled now. Vitals/I&O/Wt Last Vital Signs Temp 98.3 F 06/15/21 04:00 Pulse 83 06/16/21 05:58 Resp 16 06/16/21 05:30 BP 112/60 06/16/21 05:30 Pulse Ox 94 06/15/21 20:48 06/15/21 06/16/21 06/16/21 22:59 06:59 14:59 Intake Total 530 / 950 240 / 1190 480 / 480 Output Total 1450 / 1450 1400 / 2850 Balance -920 / -500 -1160 / -1660 480 / 480 Weight last 48 hrs Weight 166 lb 4 oz Weight 170 lb 8 oz Physical Exam Narrative: EXAM NARRATIVE: General : Alert and oriented x 3.on nasal cannula HEENT: PERRLA Neck is supple Lungs has bilateral crackles Cardiovascular: Regular rate and rhythm, has grade 2/6 murmur Abdomen is soft Extremities: no edema Skin no rash Neuro no focal deficits. Urinary Catheter Management^: Nash: Cath Placed During This Visit: no Reason for Continuing Indwelling Catheter: Accurate Measurement of Urinary Output in Critically Ill Patients Data : 06/16/21 05:02 06/16/21 05:02 A&P Assessment and plan (1) Non-ST elevation MD (NSTEMI): Status: Acute (2) Congestive heart failure: Status: Acute (3) Type 2 diabetes mellitus: Status: Acute (4) Hyperlipidemia: Status: Acute (5) Hypertension: Status: Acute Patient has presented with NSTEMI and congestive heart failure Patient had multivessel coronary artery disease with LINUX SOLARIS ADMINISTRATOR of RCA, severe mid LAD stenosis and severe stenosis of OM 1 and mid to distal LCx. She underwent revascularization of left circumflex and OM stenosis. These appeared to be the culprit lesions for a non-ST elevation MD. She had stent thrombosis of OM stent and required an additional stent to cover that area. She stabilized after that. Plan for staged revascularization of LAD tomorrow with anesthesia support as patient has significant back pain and has difficulty laying flat. Continue aspirin and Plavix Echocardiogram showed normal LV systolic function with moderate mitral regurgitation. Continue IV diuresis for now. Close monitoring of I and Os Thank you for involving us with care of this patient. We will continue to follow. Please call with questions. Attestations Medical Necessity Statement*: Care expected to cross 2 midnights. Coding Level of Care Code Acute Car Mover for Lucy Gibson Diagnoses Non-ST elevation MD (NSTEMI) I21.4 Congestive heart failure I50.9 Type 2 diabetes mellitus E11.9 Hyperlipidemia E78.5 Hypertension I10
[2021-06-16 14:00] VITALS: PULSE 75
--- NOTE | 2021-06-16 14:03 | PC.NURSE ---
Report called to SUHAIL Dee in [facility]. Pt transferred via wheelchair to room 108, tolerated well. Nurse notified of patient's arrival.
[2021-06-16] MEDS: gabapentin 400 mg Capsule PO (15:09)
[2021-06-16] MEDS: cefTRIAXone 1,000 MG in sodium chloride 0.9% (plus) 50 ML 100 MG IV (15:10)
[2021-06-16 17:04] LABS: Glucose Point of Care 174 mg/dL (70-110)
[2021-06-16 17:19] VITALS: BP 130/83; PULSE 100; RESP 21; TEMP 37.7; O2SAT 97
[2021-06-16] MEDS: gabapentin 300 mg Capsule PO (21:12)
[2021-06-16] MEDS: atorvastatin 40 mg Tablet 80 MG PO (21:12)
[2021-06-16 22:00] VITALS: PULSE 94
[2021-06-17] VITALS (40 sets, daily range): BP systolic 120–162; BP diastolic 65–108; PULSE 68–96; RESP 15–30; TEMP 36.7–37; O2SAT 91–100
[2021-06-17] MEDS: acetaminophen 325 mg Tablet 650 MG PO (04:04)
[2021-06-17 04:05] LABS: Basophils % 0.2 %; Eosinophils # 0.2 10^3/uL (0.0-0.8); Eosinophils % 2.4 %; Hematocrit 36.9 % (37.0-47.0); Hemoglobin 11.2 g/dL (11.5-15.3); Lymphocytes # 2.4 10^3/uL (0.8-4.8); Lymphocytes % 29.4 %; Mean Corpuscular HGB Conc 30.4 g/dL (30.0-36.0); Mean Corpuscular Volume 79.2 fl (81-99); Mean Platelet Volume 12.1 fL (7.4-10.4); Monocytes # 0.5 10^3/uL (0.2-0.9); Neutrophils # 4.96 10^3/uL (1.8-7.7); Neutrophils % 61.6 %; Nucleated Red Blood Cells % 0 %; Platelet Count 330 10^3/cmm (130-400); Red Blood Count 4.66 10^6/uL (4.1-5.3); Red Cell Distribution Width 16.1 % (12.1-15.1)
[2021-06-17 04:28] LABS: Alanine Aminotransferase 11 U/L (0-33); Albumin Level 3.4 g/dL (3.5-5.2); Alkaline Phosphatase 73 IU/L (35-105); Anion Gap 15.6 (5-19); Aspartate Amino Transferase 14 U/L (0-32); Blood Urea Nitrogen 15 mg/dL (8-23); Calcium 8.8 mg/dL (8.5-10.5); Carbon Dioxide 27 mmol/L (22-29); Chloride 102 mmol/L (98-107); Globulin 2.8 g/dL (1.3-4.6); Glucose 124 mg/dL (65-115); Osmolality Calculated 294 mOsm/kg (285-295); Potassium 3.6 mmol/L (3.5-5.1); Sodium 141 mmol/L (136-145); Total Bilirubin 0.3 mg/dL (0.15-1.2); Total Protein 6.2 g/dL (6.6-8.7)
[2021-06-17] MEDS: clopidogrel 75 mg Tablet PO (05:55)
[2021-06-17] MEDS: gabapentin 400 mg Capsule 800 MG PO (05:55)
[2021-06-17] MEDS: pantoprazole DR 40 mg Tablet PO (08:27)
[2021-06-17] MEDS: lisinopril 10 mg Tablet PO (08:27)
[2021-06-17] MEDS: azithromycin 250 mg Tablet 500 MG PO (08:27)
[2021-06-17] MEDS: metoprolol tartrate 25 mg Tablet PO ×2 (08:27→18:24)
[2021-06-17] MEDS: FUROsemide 10 mg/mL SDV 4mL 40 MG IVP (08:27)
[2021-06-17] MEDS: allopurinol 100 mg Tablet PO (08:27)
[2021-06-17] MEDS: aspirin 325 mg Tablet PO (08:27)
--- NOTE | 2021-06-17 10:16 | P.PN_ITS ---
Subjective Subjective: Interval history: Irene relates she is doing well. No particular concerns. No chest discomfort overnight. Ready for her angiogram. Medications: Reviewed: Yes Vitals/I&O/Wt Last Vital Signs Temp 98.1 F 06/17/21 03:41 Pulse 86 06/17/21 09:09 Resp 18 06/17/21 09:09 BP 134/74 06/17/21 03:41 Pulse Ox 91 06/17/21 09:09 06/16/21 06/17/21 06/17/21 22:59 06:59 14:59 Intake Total 290 / 1010 Output Total 1725 / 1725 Balance 290 / 1010 -1725 / -715 Weight last 48 hrs Weight 81.465 kg Weight 75.41 kg Physical Exam Narrative: EXAM NARRATIVE: General exam is a white female no distress Neck is supple no lymphadenopathy or thyromegaly. Carotid artery endarterectomy scars are noted. Lungs crackles bibasilar Cardiovascular regular rate and rhythm with a 2/6 systolic murmur heard best in the mitral area. Less crackles are noted bibasilar Abdomen is soft with positive bowel sounds. No obvious organomegaly Extremities no cyanosis clubbing or edema, cap refill brisk Urinary Catheter Management^: Nash: Cath Placed During This Visit: no Reason for Continuing Indwelling Catheter: Accurate Measurement of Urinary Output in Critically Ill Patients Data : 06/17/21 03:42 06/17/21 03:42 A&P Assessment and plan (1) Non-ST elevation [place] (NSTEMI): Continue aspirin and Plavix Continue beta-charis Continue high intensity statin Appreciate cardiology consultation. Multiple drug-eluting stents placed 06/14, circumflex with plans to intervene on LAD today Lovenox has gone to full dose to DVT prophylaxis dosing. Status: Acute (2) Congestive heart failure: Echocardiogram demonstrated preserved EF, moderate mitral regurgitation Continue furosemide 40 mg IV every 12 hours Wean oxygen as tolerated. She is down to 2 L Heart failure is becoming more compensated Status: Acute Additional A&P Information Question of pneumonia on admission. Currently on Rocephin and azithromycin. History of asthma. DuoNeb as needed. No evidence of exacerbation currently. Hypertension, continue home medications Hyperlipidemia, high intensity statin History of CVA Abnormal TSH. Free T4 and T3 ordered. These were normal. TSH will need to be repeated as an outpatient. Allow natural , with the exception of when she undergoes angiogram Lovenox for DVT prophylaxis Attestations Medical Necessity Statement*: Needs continued hospitalization for definitive intervention for her coronary artery disease today Coding Level of Care Code Acute Patient Support Partner for Lucy Gibson Diagnoses Non-ST elevation UT (NSTEMI) I21.4 Congestive heart failure I50.9
[2021-06-17] MEDS: enoxaparin 40 mg/0.4 mL Syringe SUBCUT (11:03)
[2021-06-17] MEDS: potassium chloride ER 20 mEq Tablet 40 MEQ PO (11:03)
--- NOTE | 2021-06-17 11:50 | PC.SOCIAL ---
IMM update IMM updated with patient and friends at bedside. Copy Pg 2 provided. Verbalized an understanding. Initialled, dated, timed, and placed in chart.
--- NOTE | 2021-06-17 13:25 | XACV_ITS ---
Exam Room: [facility] Ht: 170 cm Wt: 73 kg BSA: 1.86 m2 Gender: Female : 1960 Any Known Allergies: Other Exam Priority: Routine Procedure(s): Procedure Description: Diagnostic procedure Procedure Description: PCI procedure Procedure Description: Drug Eluting Coronary Stent Procedure Description: PTCA Procedure Description: Miscellaneous Procedure Description: ACT Procedure Description: Coronary Angiography Diagnostic Cath Status: Urgent Diagnostic Findings * Left Main has no significant disease. * Circumflex has patent stent. * Right Coronary Artery not injected. Left to right collaterals are seen. * Indication: Staged PCI of mid LAD. * This is a staged procedure. For complete diagnostic findings, please refer to report from 06/14/2021. * Mid Left Anterior Descending to Mid Left Anterior Descending: significant 80% stenosis, DORA: 3 flow. * Coronary angiography shows co-dominance. PCI Status: Urgent PCI Indication: Staged PCI Interventional Findings * Procedure details: We engaged left main artery with XB 3.5 guide catheter. IV heparin was administered to maintain an ACT above 250 seconds. A 0.014 run-through guidewire was used to cross the stenosis and was placed in distal LAD. 2.75 x 12 mm semicompliant balloon was used to predilate the stenosis of mid LAD. This was followed by placement of 3.0 x 15 mm resolute Mcdaniels drug-eluting stent. Some haziness was noted at the distal edge of the stent. Placed a second 2.75 x 12 mm resolute Mcdaniels drug-eluting stent overlapping with proximal stent. We postdilated with a proximal stent with 3.0 x 8 mm NC balloon.We At this time final angiogram was performed that showed excellent stent expansion, DORA-3 flow and no residual stenosis. Guidewire and guide catheter were removed. Patient left the Facility Engineer in a stable condition. * Mid Left Anterior Descending to Mid Left Anterior Descendin% stenosis treated with a AB TREK 2.75X12 RX BALLOON, AB TREK 2.75X15 RX BALLOON, MDT R NOY 3.0X15 CANDELARIA, MDT R NOY 2.75X12 CANDELARIA, MDT R NOY 2.75X12 CANDELARIA, and MDT NC EUPHORA RX [id number] BALLOON. 0% residual stenosis, DORA: 3 flow. Conclusions 1. Patient had severe mid LAD stenosis 2. which was scheduled to undergo staged PCI. Successful revascularization with CANDELARIA x2.. 3. Mid Left Anterior Descending to Mid Left Anterior Descending was treated with a Balloon, Balloon, Drug Eluting Stent, Drug Eluting Stent, Drug Eluting Stent, and Balloon. Recommendations * Transfer back to [facility]. * Aspirin and Plavix for at least 1 year. * High intensity statin therapy. * Aggressive * risk factor control. * Outpatient cardiology follow-up in 4 weeks. Interventional RX Recommendation: PCI w/o planned CABG Diagnostic RX Recommendation: PCI w/o planned CABG Anticoagulation: Heparin Pressures Phase:Rest AO : 126 / 69 ( 91 ) @ 12:54:00 PM 127 / 66 ( 91 ) @ 1:04:00 PM Clinical Evaluation EBL: 5mL-10mL Procedural Details Procedure Consent Obtained. Admit Source: In Patient. Pre-Procedure Time Out. Identified patient by full name and date of as verbalized by the patient/guarantor. Does the consent match the physician's order: Yes. Accurate & Complete Informed Consent: Yes. Inpatient/Outpatient History & Physical on Chart: Yes. If H&P is completed, is and addenduem needed: N/A; If yes, is the addendum complete: N/A. Visualize and Verify Site with Patient/Guarantor: N/A. Relevant Radiology Images available: N/A. Pre-op teaching completed and patient verbalized understanding. The risks, benefits, and alternatives of sedation and/or procedure were discussed by physician. The patient agrees to continue. Procedure started. [facility] Clinical Fraility Score: 4: Vulnerable. Facility Engineer Indications: Worsening Angina. Chest Pain Symptom Assessment: Atypical Angina. Correct patient, site and procedure confirmed by cath team. Current diagnosis: NSTEMI. PERRLA. Strong, equal hand family services specialist bilaterally. Lungs clear x 5 lobes. IV Site on Arrival: 20 gauge in the right anticubital. IV Site on Arrival: 20 gauge in the right hand. Pre Procedural Pulses: bilateral dorsalis pedis was 2+. Oxygen started at 2liters/min via nasal canula. right groin was prepped with chloroprep then draped in the usual sterile fashion. left groin was prepped with chloroprep then draped in the usual sterile fashion. Physician notified. Baseline sample Acquired. HR: 86 BPM. Physician arrived. Physician scrubbed in. Immediate Pre-Procedure Time Out. Correct Patient: Yes; Correct Procedure: Yes; Correct Site: Yes; Correct Patient Position: Yes; Correct Supplies: Dried Flammable Prep: Blood Products Available: N/A;. ALEX Floyd administering sedation for procedure. Lidocaine 1% infiltrated to the right groin. Arterial access obtained with micropuncture set. Glidewire was advanced through the guide catheter to lesion in the prox LAD. 6 [place] XB 3.5 guide catheter was inserted over the wire. Wire out. Runthrough guidewire was advanced through the guide catheter to lesion in the mid LAD. Inflation number : 1 A AB TREK 2.75X12 RX BALLOON was prepped and advanced across the Mid LAD , then inflated to 8 JEREMY for 0:18 seconds. Inflation number: 2 The AB TREK 2.75X12 RX BALLOON was reinflated across the Mid LAD, to 8 JEREMY for 0:14 seconds. Inflation number: 3 The AB TREK 2.75X12 RX BALLOON was reinflated across the Mid LAD, to 12 JEREMY for 0:23 seconds. Inflation number: 4 The AB TREK 2.75X12 RX BALLOON was reinflated across the Mid LAD, to 12 JEREMY for 0:19 seconds. Balloon out. Balloon inserted to lesion in the mid LAD. Balloon inserted to lesion in the mid LAD. Inflation number : 5 A AB TREK 2.75X15 RX BALLOON was prepped and advanced across the Mid LAD , then inflated to 12 JEREMY for 0:15 seconds. Inflation number: 6 The AB TREK 2.75X15 RX BALLOON was reinflated across the Mid LAD, to 14 JEREMY for 0:23 seconds. Balloon out. Stent inserted to lesion in the mid LAD. Inflation Number : 7 A MDT R NOY 3.0X15 CANDELARIA -Lot Number# [id number] expires 12/15/2023 was prepped and advanced across the Mid LAD. The stent was deployed at 12 JEREMY for 0:26 seconds. Stent balloon out over wire. Stent inserted to lesion in the mid LAD. Inflation Number : 8 A MDT R NOY 2.75X12 CANDELARIA -Lot Number# [id number] exp 11/11/2022 was prepped and advanced across the Mid LAD. The stent was deployed at 12 JEREMY for 0:20 seconds. Inflation Number : 9 A MDT R NOY 2.75X12 CANDELARIA balloon was prepped and advanced across the Mid LAD. Lesion ballooned for 14 seconds at at 12 JEREMY. Inflation number : 10 A MDT NC EUPHORA RX [id number] BALLOON was prepped and advanced across the Mid LAD , then inflated to 16 JEREMY for 0:17 seconds. Inflation number: 11 The MDT NC EUPHORA RX [id number] BALLOON was reinflated across the Mid LAD, to 16 JEREMY for 0:14 seconds. Balloon out. Results checked. Stent balloon out over wire. Balloon inserted to lesion in the mid LAD. Guide catheter out. A Right femoral angiogram was performed to determine safe placement of closure device. ACT drawn. Results 170 seconds. Therapeutic limits - pre-heparin administration 90-150 seconds and monitoring heparin during a vascular procedure >250 seconds. A Suture was successful obtaining hemostatsis at the Right Femoral artery insertion site. Sheath(s) sutured into position with 2-0 silk and sterile 4x4's and Op-site applied over the site. No oozing or signs and symptoms of hematoma noted. Post Procedure: Pulses reassessed and unchanged. PERRLA. Strong, equal hand family services specialist bilaterally. No VTE prophylaxis required. Medication's Wasted: Lidocaine 1% = 8 mL. Medication's Wasted: Heparin = 2000 u. Medication's Wasted: Nitro = 50 mg. Total IV fluids: 200 mL. PCI Indication: NSTE. Post-op diagnosis: NSTEMI. Complications: none. Estimated blood loss: 5mL-10mL. Procedure completed. Patient transferred by bed to 1st floor. Vital chart was stopped. Access Site Site: Right Femoral artery Sheath Size: 6 Fr Hemostasis Method: Suture Hemostasis Success: Successful Procedure Medications Start: 1:58 PM Stop: 1:58 PM Medication: Heparin Amount: 5000 units Route: I.V. Start: 2:04 PM Stop: 2:04 PM Medication: Heparin Amount: 1000 units Route: I.V. Start: 2:21 PM Stop: 2:21 PM Medication: Heparin Amount: 3000 units Route: I.V. I, the attending physician, have reviewed and verified all procedure medications. Yes, all medications given per verbal order History/Risk Factors Hypertension: Yes Dyslipidemia: Yes Peripheral Arterial Disease (PAD): No Myocardial Infarction (VA): No Obesity: Yes Renal Disease: No Prior Interventions PCI: No CABG: No Valve Surgery: No Report Signatures Finalized by Kvng Gloria MD on 06/26/2021 09:46 PM
--- NOTE | 2021-06-17 13:30 | P.ANESASSM_ITS ---
Documented by User: Kary Lopez CRNA 06/17/21 13:45 Pre-Anesthetic Assessment Pre-Anesthetic Assessment: Height/Weight: Height 1.7 m Weight 81.465 kg Temp Pulse Resp BP Pulse Ox 98.1 F 86 18 134/74 91 06/17/21 03:41 06/17/21 09:09 06/17/21 09:09 06/17/21 03:41 06/17/21 09:09 Proposed Procedure: Operation Date: 06/14/21 16:30 Proposed Procedures p Cardiac Catheterization(Not Applicable) - Kvng Gloria M.D Operation Date: 06/17/21 12:00 Proposed Procedures p Cardiac Catheterization(Left) - Kvng Gloria M.D Was Clonidine taken within 24 hours: N/A Social: Social History: No alcohol Comment: former smoker Exam: Pre-Anes Outpt Exam: alert, oriented x 3 and regular rate & rhythm Airway: Submandibular: WNL Cervical ROM: WNL MP: 2 Dentition: False History/ROS: No significant history except as noted Pulmonary: Pulmonary: Asthma and WILLIS CV/HEM: CV/HEM: NV (stents) : : None reported Hepatic: Hepatic: None reported GI: GI: None reported Metabolic: Metabolic: DM and Hyperlipidemia Musc/skel: Musc/skel: Lower Back Pain Anesthetic Plan: ASA status: 3 Anesthesia: Anesthesia Evaluation and MAC Risk of > 500 ml blood loss (7ml/kg in children): No Meds/Allergies Current Medications: Current Medications Generic Name Dose Route Start Last Admin Trade Name Freq PRN Reason Stop Dose Admin Acetaminophen 650 mg 06/14/21 18:49 06/17/21 04:04 Acetaminophen 32 5 Mg Tablet PO 650 mg Q6H PRN Administration MILD PAIN Allopurinol 100 mg 06/15/21 09:00 06/17/21 08:27 Allopurinol 100 Mg Tablet PO 100 mg DAILY WALTER Administration Aspirin 325 mg 06/15/21 09:00 06/17/21 08:27 Aspirin 325 Mg T ablet PO 325 mg DAILY WALTER Administration Atorvastatin Calci um 80 mg 06/14/21 21:00 06/16/21 21:12 Atorvastatin 40 Mg Tablet PO 80 mg BEDTIME WALTER Administration Azithromycin 500 mg 06/15/21 14:30 06/17/21 08:27 Azithromycin 250 Mg Tablet PO 500 mg DAILY WALTER Administration Protocol Clopidogrel Bisulf ate 75 mg 06/15/21 06:00 06/17/21 05:55 Clopidogrel 75 M g Tablet PO 75 mg QAM WALTER Administration Enoxaparin Sodium 40 mg 06/15/21 10:15 06/17/21 11:03 Enoxaparin 40 Mg /0.4 Ml Syringe SUBCUT 40 mg Q24H WALTER Administration Gabapentin 300 mg 06/14/21 21:00 06/16/21 21:12 Gabapentin 300 M g Capsule PO 300 mg BEDTIME WALTER Administration Gabapentin 800 mg 06/15/21 06:00 06/17/21 05:55 Gabapentin 400 M g Capsule PO 800 mg QAM WALTER Administration Gabapentin 400 mg 06/14/21 14:00 06/16/21 15:09 Gabapentin 400 M g Capsule PO 400 mg 1400 WALTER Administration Nitroglycerin/Dext diaen 50 mg in 250 mls @ 0 mls/hr 06/14/21 11:15 06/14/21 19:[address] ip IV 10 mcg/min .Q0M AWLTER 3 mls/hr Titration Protocol Per Protocol Ceftriaxone Sodium 1,000 mg/ 50 mls @ 100 mls/ hr 06/15/21 14:30 06/16/21 21:13 Sodium Chloride IV Infused Q24H [facility] Infusion Protocol Lisinopril 10 mg 06/15/21 09:00 06/17/21 08:27 Lisinopril 10 Mg Tablet PO 10 mg DAILY WALTER Administration Metoprolol Tartrat e 25 mg 06/14/21 18:00 06/17/21 08:27 Metoprolol Tartr ate 25 Mg Tablet PO 25 mg BID WALTER Administration Morphine Sulfate 4 mg 06/14/21 08:16 06/15/21 20:48 Morphine 4 Mg/Ml Sdv 1 Ml IVP 4 mg Q4H PRN Administration SEVERE PAIN Pantoprazole Sodiu m 40 mg 06/15/21 09:00 06/17/21 08:[address] 40 Mg Tablet PO 40 mg DAILY WALTER Administration Salmeterol Xinafoa te 1 puff 06/14/21 20:00 06/17/21 09:09 Salmeterol 50 Mc g Diskus INHALATION Not Given BID.RESPIRATORY S CH PFSH Anesthesia PFSH: Medical History (Updated 06/15/21 @ 08:08 by Kvng Gloria M.D) Asthma CVA (cerebral vascular accident) Residual right hemiparesis GERD (gastroesophageal reflux disease) Gout History of poliomyelitis without residual effect Hyperlipidemia Hypertension Hypothyroidism Personal history of congenital hip dysplasia Sustained SVT History of ablation Type 2 diabetes mellitus Surgical History History of bilateral carotid endarterectomy History of cholecystectomy History of hip replacement, total History of knee surgery History of neck surgery Hx of exploratory laparotomy Family History Other CAD (coronary artery disease) Social History Smoking and tobacco status: former smoker Alcohol intake: never Data Anesthesia CBC & Chem 7: 06/17/21 03:42 06/17/21 03:42 Other Labs: Laboratory Results - last 48 hr 06/16/21 06/16/21 06/16/21 05:02 05:02 05:02 WBC 7.3 RBC 4.25 Hgb 10.1 L Hct 34.2 L MCV 80.5 L MCH 23.8 L MCHC 29.5 L RDW 16.8 H Plt Count 254 D MPV 12.1 H Neut % (Auto) 59.8 Lymph % (Auto) 31.8 [place] % (Auto) 6.7 Eos % (Auto) 1.1 Baso % (Auto) 0.3 Neut # (Auto) 4.39 Lymph # (Auto) 2.3 [place] # (Auto) 0.5 Eos # (Auto) 0.1 Baso # (Auto) 0.0 Nucleated RBC % (auto) 0 Nucleated RBCs # 0.0 Sodium 138 Potassium 3.5 Chloride 99 Carbon Dioxide 29 Anion Gap 13.5 BUN 19 Creatinine 0.4 L GFR Calculation 161.7 H Glucose 123 H POC Glucose Calculated Osmolality 290 Calcium 8.8 Total Bilirubin AST ALT Alkaline Phosphatase Total Protein Albumin Globulin Free T4 1.58 Free T3 2.5 06/16/21 06/17/21 06/17/21 16:19 03:42 03:42 WBC 8.0 RBC 4.66 Hgb 11.2 L Hct 36.9 L MCV 79.2 L MCH 24.0 L MCHC 30.4 RDW 16.1 H Plt Count 330 MPV 12.1 H Neut % (Auto) 61.6 Lymph % (Auto) 29.4 [place] % (Auto) 6.0 Eos % (Auto) 2.4 Baso % (Auto) 0.2 Neut # (Auto) 4.96 Lymph # (Auto) 2.4 [place] # (Auto) 0.5 Eos # (Auto) 0.2 Baso # (Auto) 0.0 Nucleated RBC % (auto) 0 Nucleated RBCs # 0.0 Sodium 141 Potassium 3.6 Chloride 102 Carbon Dioxide 27 Anion Gap 15.6 BUN 15 Creatinine 0.5 GFR Calculation 125.0 Glucose 124 H POC Glucose 174 H Calculated Osmolality 294 Calcium 8.8 Total Bilirubin 0.3 AST 14 ALT 11 Alkaline Phosphatase 73 Total Protein 6.2 L Albumin 3.4 L Globulin 2.8 Free T4 Free T3 Cardiac Studies: Echocardiogram 06/14/21 Documented by User: Azeem Olea 06/17/21 15:34 PFSH Anesthesia PFSH: Medical History (Updated 06/15/21 @ 08:08 by Kvng Gloria M.D) Asthma CVA (cerebral vascular accident) Residual right hemiparesis GERD (gastroesophageal reflux disease) Gout History of poliomyelitis without residual effect Hyperlipidemia Hypertension Hypothyroidism Personal history of congenital hip dysplasia Sustained SVT History of ablation Type 2 diabetes mellitus Surgical History History of bilateral carotid endarterectomy History of cholecystectomy History of hip replacement, total History of knee surgery History of neck surgery Hx of exploratory laparotomy Family History Other CAD (coronary artery disease) Social History Smoking and tobacco status: former smoker Alcohol intake: never Data Anesthesia CBC & Chem 7: 06/17/21 03:42 06/17/21 03:42 Cardiac Studies: Echocardiogram 06/14/21
--- NOTE | 2021-06-17 14:46 | PM.PN ---
Subjective Subjective: Interval history: Patient underwent successful revascularization of the mid LAD with CANDELARIA x 2. Vitals/I&O/Wt Last Vital Signs Temp 98.1 F 06/17/21 03:41 Pulse 86 06/17/21 09:09 Resp 18 06/17/21 09:09 BP 134/74 06/17/21 03:41 Pulse Ox 91 06/17/21 09:09 06/16/21 06/17/21 06/17/21 22:59 06:59 14:59 Intake Total 290 / 1010 Output Total 1725 / 1725 Balance 290 / 1010 -1725 / -715 Weight last 48 hrs Weight 179 lb 9.6 oz Weight 166 lb 4 oz Physical Exam Narrative: EXAM NARRATIVE: General : Alert and oriented x 3.on nasal cannula HEENT: PERRLA Neck is supple Lungs has bilateral crackles Cardiovascular: Regular rate and rhythm, has grade 2/6 murmur Abdomen is soft Extremities: no edema Skin no rash Neuro no focal deficits. 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 She underwent revascularization of left circumflex and OM stenosis. These appeared to be the culprit lesions for a non-ST elevation MO. She had stent thrombosis of OM stent and required an additional stent to cover that area while the procedure was ongoing. She stabilized after that. Underwent successful revascularization of the mid LAD with CANDELARIA x 2 Continue aspirin and Plavix Echocardiogram showed normal LV systolic function with moderate mitral regurgitation. Switch to PO diuretics Thank you for involving us with care of this patient. We will continue to follow. Please call with questions. Attestations Medical Necessity Statement*: Care expected to cross 2 midnights. Coding Level of Care Code Acute Blood And Plasma Laboratory Assistant for Lucy Fwd Diagnoses Non-ST elevation MO (NSTEMI) I21.4 Congestive heart failure I50.9 Type 2 diabetes mellitus E11.9 Hyperlipidemia E78.5 Hypertension I10
--- NOTE | 2021-06-17 14:47 | W.PM.OPSUD ---
Surgery/Procedure H&P Update DATE OF PROCEDURE: June 17, 2021 DATE H&P PERFORMED: 06/14/21 CHANGES TO PREVIOUS DOCUMENTATION: None PREOP DIAGNOSIS: NSTEMI/ Staged PCI of the mid LAD PRIMARY INDICATION FOR PROCEDURE: NSTEMI/ Staged PCI of the mid LAD PLANNED PROCEDURE: Operation Date: 06/14/21 16:30 Proposed Procedures p Cardiac Catheterization(Not Applicable) - Kvng Gloria M.D Operation Date: 06/17/21 12:00 Proposed Procedures p Cardiac Catheterization(Left) - Kvng Gloria M.D Percutaneous coronary intervention PHYSICAL EXAM: alert, oriented x 3, clear to auscultation bilaterally and regular rate & rhythm
--- NOTE | 2021-06-17 15:34 | ANE.PACU2 ---
Inpatient post-anesthesia follow up: Airway intact: Yes Vital signs: Temperature 98.1 F Pulse Rate [Monito r] 111 Pulse Rate 86 Respiratory Rate 18 Blood Pressure [Le ft Arm] 110/74 Blood Pressure 134/74 Pulse Oximetry 91 Oxygen Delivery Me thod Room Air Oxygen Flow Rate 4 Fraction of Inspir ed Oxygen 50 Hydration adequate: Yes Nausea and vomiting: No Pain level: 2 Mental status: Baseline
[2021-06-17 18:07] LABS: Partial Thromboplastin Time 82.8 SECONDS (23.9-36.7)
--- NOTE | 2021-06-17 19:03 | PC.NURSE ---
Patient arrived to [facility] at 1430 from [facility] with IVF running. Dr. Gloria states to infuse NS at 50ml/hr for 8 hours. Reported to shift superintendent RN to run fluids until 2200 per doctor's verbal order.
--- NOTE | 2021-06-17 20:16 | PC.NURSE ---
Patient is angry, stating they haven't been giving me insulin. Patient checked blood sugar on her home machine and it was 260. On our machine, it is 146. Dr. Gutierrez notified.
[2021-06-17 20:18] LABS: Partial Thromboplastin Time 34.5 SECONDS (23.9-36.7)
[2021-06-17 20:21] LABS: Glucose Point of Care 146 mg/dL (70-110)
[2021-06-17] MEDS: atorvastatin 40 mg Tablet 80 MG PO (20:22)
[2021-06-17] MEDS: gabapentin 300 mg Capsule PO (20:22)
[2021-06-17] MEDS: temazepam 15 mg Capsule PO (21:03)
[2021-06-17] MEDS: HYDROcodone-acetaminophen 5-325 mg Tablet 1 TAB PO (21:16)
[2021-06-17] MEDS: insulin lispro 100 unit/1 mL SUBCUT (21:17)
[2021-06-18] VITALS (7 sets, daily range): BP systolic 154–161; BP diastolic 81–92; PULSE 73–93; RESP 13–20; O2SAT 94–98
--- NOTE | 2021-06-18 02:41 | PC.NURSE ---
Shift Note Frequent safety and comfort rounds continue. Orders and/or nursing care completed as indicated. Patient monitored for response to intervention and treatment(s). Education provided includes post-cath care and restrictions. Patient and/or industrial sales representative verbalized understanding. Will continue to monitor.
--- NOTE | 2021-06-18 03:49 | PC.NURSE ---
Sheath removed from right groin at 2156. Manual pressure held for 20 minutes. Vital signs remained stable. Patient tolerated well. Dressing placed to right groin. No bleeding or hematoma noted. Patient educated on post-cath activity restrictions and verbalized understanding.
--- NOTE | 2021-06-18 04:33 | PC.NURSE ---
Patient ambulated with nurse. VSS. Right groin site WNL.
[2021-06-18] MEDS: gabapentin 400 mg Capsule 800 MG PO (04:48)
[2021-06-18] MEDS: clopidogrel 75 mg Tablet PO (04:49)
[2021-06-18 04:57] LABS: Basophils % 0.4 %; Eosinophils # 0.3 10^3/uL (0.0-0.8); Eosinophils % 3.4 %; Hematocrit 36.4 % (37.0-47.0); Hemoglobin 11.2 g/dL (11.5-15.3); Lymphocytes # 2.1 10^3/uL (0.8-4.8); Mean Corpuscular HGB Conc 30.8 g/dL (30.0-36.0); Mean Corpuscular Hemoglobin 24.2 pg (28.0-34.0); Mean Corpuscular Volume 78.6 fl (81-99); Mean Platelet Volume 11.9 fL (7.4-10.4); Monocytes # 0.6 10^3/uL (0.2-0.9); Monocytes % 7.5 %; Neutrophils # 4.51 10^3/uL (1.8-7.7); Neutrophils % 60.6 %; Nucleated Red Blood Cells % 0 %; Platelet Count 352 10^3/cmm (130-400); Red Blood Count 4.63 10^6/uL (4.1-5.3); Red Cell Distribution Width 15.9 % (12.1-15.1); White Blood Count 7.4 10^3/uL (4.0-10.0)
[2021-06-18 05:33] LABS: Anion Gap 14.9 (5-19); Blood Urea Nitrogen 15 mg/dL (8-23); Carbon Dioxide 25 mmol/L (22-29); Chloride 102 mmol/L (98-107); Glucose 145 mg/dL (65-115); Osmolality Calculated 289 mOsm/kg (285-295); Potassium 3.9 mmol/L (3.5-5.1); Sodium 138 mmol/L (136-145)
[2021-06-18 07:22] LABS: Glucose Point of Care 159 mg/dL (70-110)
[2021-06-18] MEDS: metoprolol tartrate 25 mg Tablet PO ×2 (08:20→17:13)
[2021-06-18] MEDS: allopurinol 100 mg Tablet PO (08:21)
[2021-06-18] MEDS: aspirin 325 mg Tablet PO (08:21)
[2021-06-18] MEDS: FUROsemide 40 mg Tablet PO (08:21)
[2021-06-18] MEDS: azithromycin 250 mg Tablet 500 MG PO (08:24)
[2021-06-18] MEDS: lisinopril 10 mg Tablet PO (08:24)
[2021-06-18] MEDS: pantoprazole DR 40 mg Tablet PO (08:24)
[2021-06-18] MEDS: insulin lispro 100 unit/1 mL SUBCUT ×3 (08:26→17:13)
--- NOTE | 2021-06-18 08:39 | XRR_ITS ---
PROCEDURE INFORMATION: Exam: XR Chest Exam date and time: 06/18/2021 8:39 AM Age: 60 years old Clinical indication: Condition or disease; Lung condition and disease; Pneumonia; Bronchial; Additional info: Follow up pna TECHNIQUE: Imaging protocol: XR of the chest. Views: 1 view. COMPARISON: CR (CHEST, ) 06/14/2021 3:58 AM FINDINGS: Lungs: Unremarkable. No consolidation. Pleural spaces: Unremarkable. No pleural effusion. No pneumothorax. Heart/Mediastinum: Unremarkable. No cardiomegaly. Bones/joints: Unremarkable. XR/XR chest 1V portable [id number] IMPRESSION: No acute abnormalities are seen in the chest. Radiation Dose CTDIVOL = (mGy): DLP = (mGy-cm)
[2021-06-18] MEDS: enoxaparin 40 mg/0.4 mL Syringe SUBCUT (10:43)
[2021-06-18 11:03] LABS: Glucose Point of Care 262 mg/dL (70-110)
--- NOTE | 2021-06-18 11:53 | P.DS_ITS ---
Discharge Providers Date of Admission: 06/14/21 09:07 Date of Discharge: June 18, 2021 Attending Provider at Admission: Arjun Frank MD Attending Provider at Discharge: Poly Cruz MD Primary Care Provider: Jad Botello Diagnoses at Discharge Discharge Diagnosis (1) Non-ST elevation OR (NSTEMI): Status: Resolved Permanent problem details: Status post drug-eluting stents to circumflex obtuse marginal and staged PCI to mid LAD. Overall doing fine from a cardiovascular perspective continue aspirin statin beta-charis and RICHARD inhibitor. Follow-up with Dr. Gloria in 4 weeks and Ms. Tammy Issa in 7 days. (2) Congestive heart failure: Status: Acute Permanent problem details: Appear to be well compensated potassium 20 meq and Lasix 40 mg (3) Type 2 diabetes mellitus: Status: Acute Permanent problem details: As per medicine (4) Hyperlipidemia: Status: Acute Permanent problem details: Statin was increased therefore we will discontinue amlodipine for interaction (5) Hypertension: Status: Acute Reason for Visit Reason for Visit: RESP. DISTRESS Hospital Course Hospital Course Irene Zuluaga is a 60 year old female who presents to the emergency department with complaints of chest discomfort and shortness of breath. She believes this started yesterday around 6 PM when she was letting her dogs outside, actively going in and out of the house. She it was associated with nausea and vomiting. She has not had discomfort like this in the past. She reports she has some continued upper chest discomfort and is still somewhat short of breath currently. Chest discomfort was described as pressure/squeezing. She has not been ill lately with any fever or cough. No known Covid exposure. No blood in her stool, black or tarry stool, or hematemesis. 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 She underwent revascularization of left circumflex and OM stenosis. These appeared to be the culprit lesions for a non-ST elevation OR. She had stent thrombosis of OM stent and required an additional stent to cover that area while the procedure was ongoing. She stabilized after that. Underwent successful revascularization of the mid LAD with CANDELARIA x 2 Continue aspirin and Plavix Echocardiogram showed normal LV systolic function with moderate mitral regurgitation. Switch to PO diuretics Discharge med rec done by cardiology. Confirmed with patient that she has medications at and does not want any refills. She was discharged home in stable condition. Physical Exam Narrative: EXAM NARRATIVE: GENERAL: Patient is alert, awake and oriented x3. NECK: No jugular vein distension. HEENT: No cyanosis. No icterus. No pallor. HEART: Regular S1 and S2. No murmur, rub or gallop. LUNGS: Decreased breath sounds bilaterally. ABDOMEN: Soft, nontender and nondistended. Positive bowel sounds. No guarding, rebound or tenderness. CENTRAL NERVOUS SYSTEM: Grossly nonfocal. EXTREMITIES: Right groin looks good no hematoma Urinary Catheter Management^: Nash: Cath Placed During This Visit: yes, but has since been removed by the nurse Reason for Continuing Indwelling Catheter: Accurate Measurement of Urinary Output in Critically Ill Patients Date Urinary Catheter Removed: 06/18/21 Time Urinary Catheter Discontinued: 10:36 Discharge Data Data Completed and Pending: Completed Studies During Hospitalization Category Date Time Status XR chest 1V sanjay ble [id number] Urgent Exams 06/14/21 03:39 Completed XR chest 1V sanjay ble [id number] Urgent Exams 06/18/21 08:39 Completed CV. echo complete * [id number] Routine Ultrasound 06/14/21 08:16 Completed Pending at discharge Category Date Time Status INFORMATION SYSTEMS OPERATOR request for service Routin e Exams 06/14/21 16:00 Taken INFORMATION SYSTEMS OPERATOR request for service Routin e Exams 06/17/21 13:25 Taken Blood Culture Sta t Lab 06/14/21 06:34 Results Labs from last 24 hours 06/18/21 06/18/21 06/18/21 10:45 06:28 04:04 WBC RBC Hgb Hct MCV MCH MCHC RDW Plt Count MPV Neut % (Auto) Lymph % (Auto) [place] % (Auto) Eos % (Auto) Baso % (Auto) Neut # (Auto) Lymph # (Auto) [place] # (Auto) Eos # (Auto) Baso # (Auto) Nucleated RBC % (a uto) Nucleated RBCs # APTT Sodium 138 Potassium 3.9 Chloride 102 Carbon Dioxide 25 Anion Gap 14.9 BUN 15 Creatinine 0.5 GFR Calculation 125.0 Glucose 145 H POC Glucose 262 H 159 H Calculated Osmolal ity 289 Calcium 9.0 06/18/21 06/17/21 06/17/21 04:04 20:13 19:36 WBC 7.4 RBC 4.63 Hgb 11.2 L Hct 36.4 L MCV 78.6 L MCH 24.2 L MCHC 30.8 RDW 15.9 H Plt Count 352 MPV 11.9 H Neut % (Auto) 60.6 Lymph % (Auto) 28.0 [place] % (Auto) 7.5 Eos % (Auto) 3.4 Baso % (Auto) 0.4 Neut # (Auto) 4.51 Lymph # (Auto) 2.1 [place] # (Auto) 0.6 Eos # (Auto) 0.3 Baso # (Auto) 0.0 Nucleated RBC % (a uto) 0 Nucleated RBCs # 0.0 APTT 34.5 D Sodium Potassium Chloride Carbon Dioxide Anion Gap BUN Creatinine GFR Calculation Glucose POC Glucose 146 H Calculated Osmolal ity Calcium 06/17/21 17:29 WBC RBC Hgb Hct MCV MCH MCHC RDW Plt Count MPV Neut % (Auto) Lymph % (Auto) [place] % (Auto) Eos % (Auto) Baso % (Auto) Neut # (Auto) Lymph # (Auto) [place] # (Auto) Eos # (Auto) Baso # (Auto) Nucleated RBC % (a uto) Nucleated RBCs # APTT 82.8 H Sodium Potassium Chloride Carbon Dioxide Anion Gap BUN Creatinine GFR Calculation Glucose POC Glucose Calculated Osmolal ity Calcium Vitals: Last Vital Signs Temp 98.6 F 06/17/21 19:11 Pulse 84 06/18/21 09:09 Resp 18 06/18/21 09:09 BP 154/89 06/18/21 08:00 Pulse Ox 98 06/18/21 09:09 Discharge Plan Discharge Patient Disposition: Home Condition: Stable Prescriptions: New furosemide 40 mg Tablet 40 mg PO DAILY@0800 30 Days Qty: 30 RF: 3 atorvastatin 40 mg Tablet 80 mg PO BEDTIME 30 Days Qty: 60 RF: 0 levofloxacin 750 mg tablet 750 mg PO DAILY 4 Days Qty: 4 RF: 0 Continued cyclobenzaprine 10 mg Tablet 10 mg PO BID PRN (Reason: Spasms) RF: 0 clonidine HCl 0.1 mg Tablet 0.1 mg PO QAM RF: 0 albuterol sulfate 2.5 mg /3 mL (0.083 %) Solution For Nebulization 2.5 mg INHALATION Q4H PRN (Reason: Shortness Of Breath) RF: 0 gabapentin 400 mg Capsule See Rx Instructions .ROUTE .COMPLEX RF: 0 allopurinol 100 mg Tablet 100 mg PO DAILY RF: 0 hydrocodone-acetaminophen 10-325 mg tablet 1 tab PO Q4H PRN (Reason: Pain) RF: 0 aspirin 81 mg Tablet,Delayed Release (Dr/Ec) 162 mg PO BID RF: 0 Protonix 40 mg Tablet,Delayed Release (Dr/Ec) 40 mg PO DAILY RF: 0 metformin 1,000 mg Tablet 1,000 mg PO BID RF: 0 Serevent Diskus 50 mcg/dose Blister With Device 1 inh INHALATION BID RF: 0 gabapentin 100 mg Capsule 300 mg PO BEDTIME RF: 0 Vitamin D2 1,250 mcg (50,000 unit) Capsule 50,000 unit PO Q7D RF: 0 glipizide 5 mg Tablet 5 mg PO QAM RF: 0 Wellbutrin XL 150 mg Tablet Extended Release 24 Hr 150 mg PO QAM RF: 0 metoprolol tartrate 25 mg Tablet 25 mg PO BID RF: 0 Lovaza 1 gram Capsule 2 g PO BID RF: 0 levalbuterol tartrate 45 mcg/actuation Hfa Aerosol Inhaler 2 inh INHALATION Q6H PRN (Reason: Shortness Of Breath) RF: 0 hydrochlorothiazide 12.5 mg Tablet 12.5 mg PO QAM RF: 0 Voltaren Arthritis Pain 1 % Gel 2 g TOPICAL QID PRN (Reason: Pain) RF: 0 Vitamin B-12 1 tab PO DAILY RF: 0 Vitamin C 1 tab PO DAILY RF: 0 alpha lipoic acid 1 cap PO DAILY RF: 0 calcium 1 tab PO DAILY RF: 0 zinc 1 cap PO DAILY RF: 0 Plavix 75 mg Tablet 75 mg PO QAM Qty: 90 RF: 3 Changed lisinopril 10 mg Tablet 20 mg PO DAILY Qty: 30 RF: 3 Discontinued simvastatin 40 mg Tablet 40 mg PO QPM RF: 0 garlic 1,000 mg Capsule 1,000 mg PO DAILY RF: 0 amlodipine [Norvasc] 10 mg Tablet 10 mg PO DAILY RF: 0 mupirocin 2 % Ointment 1 applic TOPICAL DAILY RF: 0 ezetimibe [Zetia] 10 mg Tablet 10 mg PO QPM RF: 0 No Action potassium chloride 20 mEq tablet extended release 20 meq PO DAILY Qty: 30 RF: 4 Discharge Orders: Discharge Order (Routine); Ordered 06/18/21 Ordered By: Poly Cruz Other Ambulatory Orders: Basic Metabolic Panel (Routine) Timeframe: 3 Days Facility: [facility] - Location: Lab - Main Lab Ordered By: Poly Cruz Referrals: Jad Botello [Primary Care Provider] - 7-10 days ([facility] will contact you to schedule an follow-up appointment in 7 to 10 days. If you haven't heard from them by Sunday afternoon. Please call ) Kvng Gloria M.D [Physician] - 1 month ([facility] will contact you to schedule an follow-up apppointment in [address] Gloria. If you haven't heard from them by Sunday. Please call ) Tammy Issa FNP [Nurse Practitioner] - 1 week ([facility] will contact you to schedule an follow-up with Tammy Issa in 1 week. If you haven't heard from them by Sunday. Please call ) Discharge Diet: Cardiac and Diabetic Discharge Activity: Increase activity as tolerated and As per PT/OT instructions Patient Instructions: Type 2 Diabetes, Diabetes and Diet, Furosemide (By mouth), Potassium Chloride (By mouth), Atorvastatin (By mouth), Levofloxacin (By mouth), Heart Attack (DC), Heart Failure (DC), Coronary Angioplasty (DC), Hypertension (DC), CHF Stoplight, Opioid Safety, Post Angiogram Home Care Instructions, Post Heart Attack Stoplight Activity Restrictions/Additional Instructions: Follow-up with Ms. Tammy Issa in 7 days, follow-up with Dr. Gloria in 4 weeks Discharge Attestations Time Spent in Discharge Care*: less than 30 min Quality Metrics Clinical Quality Measures During this hospital stay, did patient experience: None Coding Level of Care Code Acute Chg FW DC note Diagnoses Non-ST elevation OR (NSTEMI) I21.4 Congestive heart failure I50.9 Type 2 diabetes mellitus E11.9 Hyperlipidemia E78.5 Hypertension I10
--- NOTE | 2021-06-18 12:24 | PM.PN ---
Subjective Subjective: Interval history: Patient denies any complaint drug-eluting stent to circumflex obtuse marginal and staged PCI to mid LAD. Medications: Reviewed: Yes Vitals/I&O/Wt Last Vital Signs Temp 98.6 F 06/17/21 19:11 Pulse 84 06/18/21 09:09 Resp 18 06/18/21 09:09 BP 154/89 06/18/21 08:00 Pulse Ox 98 06/18/21 09:09 06/17/21 06/18/21 06/18/21 22:59 06:59 14:59 Intake Total 540 / 540 360 / 360 Output Total 650 / 650 Balance 540 / 540 -650 / -110 360 / 360 Weight last 48 hrs Weight 174 lb 11.2 oz Weight 179 lb 9.6 oz Physical Exam Narrative: EXAM NARRATIVE: GENERAL: Patient is alert, awake and oriented x3. NECK: No jugular vein distension. HEENT: No cyanosis. No icterus. No pallor. HEART: Regular S1 and S2. No murmur, rub or gallop. LUNGS: Decreased breath sounds bilaterally. ABDOMEN: Soft, nontender and nondistended. Positive bowel sounds. No guarding, rebound or tenderness. CENTRAL NERVOUS SYSTEM: Grossly nonfocal. EXTREMITIES: Right groin looks good no hematoma Urinary Catheter Management^: Nash: Cath Placed During This Visit: yes, but has since been removed by the nurse Reason for Continuing Indwelling Catheter: Accurate Measurement of Urinary Output in Critically Ill Patients Date Urinary Catheter Removed: 06/18/21 Time Urinary Catheter Discontinued: 10:36 Data : 06/18/21 04:04 06/18/21 04:04 A&P Assessment and plan (1) Non-ST elevation CT (NSTEMI): Status: Acute (2) Congestive heart failure: Status: Acute (3) Type 2 diabetes mellitus: Status: Acute (4) Hyperlipidemia: Status: Acute (5) Hypertension: Status: Acute Patient has presented with NSTEMI and congestive heart failure Patient had multivessel coronary artery disease with SPREAD CUTTER of RCA, severe mid LAD stenosis and severe stenosis of OM 1 and mid to distal LCx. She underwent revascularization of left circumflex and OM stenosis. These appeared to be the culprit lesions for a non-ST elevation CT. She had stent thrombosis of OM stent and required an additional stent to cover that area while the procedure was ongoing. She stabilized after that. Underwent successful revascularization of the mid LAD with CANDELARIA x 2 Continue aspirin and Plavix Echocardiogram showed normal LV systolic function with moderate mitral regurgitation. Switch to PO diuretics Thank you for involving us with care of this patient. We will continue to follow. Please call with questions. Attestations Medical Necessity Statement*: From a cardiovascular perspective patient can be discharged home Coding Level of Care Code Established Pt Acute Finance Effectiveness Manager for Lucy Gibson Patient Type Established History Detailed Exam Detailed Medical Decision Making Moderate Complexity Diagnoses Non-ST elevation CT (NSTEMI) I21.4 Congestive heart failure I50.9 Type 2 diabetes mellitus E11.9 Hyperlipidemia E78.5 Hypertension I10
[2021-06-18 16:50] LABS: Glucose Point of Care 115 mg/dL (70-110)
--- NOTE | 2021-06-18 20:05 | PC.NURSE ---
discharge instructions given and explained.pt verb understanding of instructions.will get 10 day supply of meds from [facility].discharged at [email or web address].son to drive pt home.
--- NOTE | 2021-07-01 13:33 | PC.SOCIAL ---
pt called and states she has been waiting for an appointment with heart care services, that she has called multiple times and been told she needs a referral. process description writer let pt know that process description writer had called and tried doing a discharge follow up call with pt and was unable to complete the call due to her daughter screaming in the back ground profanity at how bad OZH was. and at this time the pt didn't wish for any appointments to be made for her. process description writer called and got pt scheduled to see marina sims.
== END 2021-06-18 18:00 | disposition home or self-care (01) | DRG 246 ==
LOC: ER 09:07 → ICU 13:19 → CSU 06-16 13:51
PROVIDERS: Hospitalist; Internal Medicine; Admitting Provider Internal Medicine; Emergency Provider Emergency Medicine; PCP Family Medicine; Visit Provider Internal Medicine
DX: I21.4 Non-ST elevation (NSTEMI) myocardial infarction (principal); I50.31 Acute diastolic (congestive) heart failure; I69.951 Hemiplegia and hemiparesis following unspecified cerebrovascular disease affecting right dominant side; I25.10 Atherosclerotic heart disease of native coronary artery without angina pectoris; I11.0 Hypertensive heart disease with heart failure; J45.909 Unspecified asthma, uncomplicated; K21.9 Gastro-esophageal reflux disease without esophagitis; M10.9 Gout, unspecified; Z86.12 Personal history of poliomyelitis; E78.5 Hyperlipidemia, unspecified; E03.9 Hypothyroidism, unspecified; Z79.84 Long term (current) use of oral hypoglycemic drugs; Z79.891 Long term (current) use of opiate analgesic; Z79.51 Long term (current) use of inhaled steroids; Z66 Do not resuscitate; E11.9 Type 2 diabetes mellitus without complications; Z96.649 Presence of unspecified artificial hip joint
CPT/HCPCS: 36415; 36416; 36600; 71045; 80048; 80053; 82805; 82962; 83735; 83880; 84439; 84443; 84481; 84484; 85025; 85347; 85378; 85610; 85730; 87040; 87426; 93005; 93306; 93454; 94640; 94660; 96365; 96367; 96372; 96375; 96376; 97116; 97161; 97166; 99285; C1725; C1769; C1874; C1887; C1894; C9600; J0456; J0696; J1644; J1650; J1815; J1940; J2250; J2270; J2704; J2930; J3010; J3246; J3490; J3535; J7030; J7050; J7611; Q0144; Q9967

== ENCOUNTER 2022-02-09 21:03 | Emergency (ER) | payer MEDICARE, OTHER, SELFPAY ==
[2022-02-09 21:52] VITALS: PULSE 138; RESP 20; TEMP 36.8; O2SAT 99; BMI 26.2
--- NOTE | 2022-02-09 23:04 | USR_ITS ---
PROCEDURE INFORMATION: Exam: US Duplex Left Lower Extremity Veins, Limited Exam date and time: 02/09/2022 11:17 PM Age: 61 years old Clinical indication: Pain; Leg, lower; Patient HX: Venous duplex imaging was performed in only the left lower extremity. The following venous structures were evaluated: Common femoral vein, profunda vein, proximal portion of the greater saphenous vein, superficial femoral vein, and the popliteal vein. In addition, the posterior tibial veins were evaluated. On the left side, the common femoral, superficial femoral, profunda femoral, popliteal, posterior tibial, and greater saphenous veins, were identified and interrogated in the standard fashion. These veins were found to be easily compressible with spontaneous blood flow and good augmentation. No evidence of thrombus noted. ; Additional info: Redness and swelling, R/O dvt TECHNIQUE: Imaging protocol: Real-time Duplex ultrasound of the Left Lower Extremity with 2-D harmon scale, color Doppler flow and spectral waveform analysis with image documentation. Limited exam focused on the left lower extremity veins. COMPARISON: No relevant prior studies available. FINDINGS: Left deep veins: Unremarkable. The common femoral, femoral, proximal profunda femoral and popliteal veins are patent without thrombus. Normal Doppler waveforms. Normal compressibility and/or augmentation response. Left superficial veins: Unremarkable. Saphenofemoral junction is patent without thrombus. Soft tissues: Unremarkable. US/[place] [id number] IMPRESSION: No evidence of deep vein thrombosis.
--- NOTE | 2022-02-09 23:08 | W.ED.EXTPRO ---
HPI - Extremity Problem General: Chief complaint: Extremity Injury, Lower Stated complaint: L leg numbness Time Seen by Provider: 02/09/22 23:03 History of Present Illness: 61-year-old female comes in today with complaints of pain and discomfort to bilateral lower extremity. Patient states that hip for started in her left lower leg but has worsened now in both legs hurt. Patient does have type 2 diabetes, coronary artery disease, congestive heart failure, and hyperlipidemia, and COPD. Patient does not know what her last blood sugar was. Patient is a poor historian. Patient reports that she is here mainly because of her legs hurting bilaterally. 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 Hyperlipidemia Statin was increased therefore we will discontinue amlodipine for interaction Hypertension Hypothyroidism Personal history of congenital hip dysplasia Sustained SVT History of ablation Type 2 diabetes mellitus As per medicine Surgical History History of bilateral carotid endarterectomy History of cholecystectomy History of hip replacement, total History of knee surgery History of neck surgery Hx of exploratory laparotomy Family History Other CAD (coronary artery disease) Social History Smoking and tobacco status: former smoker Alcohol intake: former Physical Exam Const: COMMON NORMALS: alert HENMT: COMMON NORMALS: normocephalic HEAD & SCALP: normocephalic Neck/C-Spine: COMMON NORMALS: full ROM Resp: COMMON NORMALS: normal respiratory effort and clear to auscultation bilaterally AUSCULTATION: clear to auscultation bilaterally Cardio: RATE: tachycardic GI: COMMON NORMALS: Soft to palpation AUSCULTATION: Yes normoactive bowel sounds PALPATION: Yes Soft to palpation : COMMON NORMALS: Yes no CVA tenderness BLADDER/KIDNEY EXAM: Yes no CVA tenderness Back/Pelvis: COMMON NORMALS: no CVA tenderness Extremity: COMMON NORMALS: full ROM Neuro: SENSORIUM/ORIENTATION: Yes alert Skin: LESIONS: lesion noted (Healing blisters to the third and fourth digit on the left foot.) Course Vital Signs: Vital signs: Vital Signs Temperature 98.3 F 02/09/22 21:52 Pulse Rate 138 H 02/09/22 21:52 Respiratory Rate 20 H 02/09/22 21:52 Pulse Oximetry 99 02/09/22 21:52 MDM - Extremity (Nontraumatic) Medical Decision Making 61-year-old female comes in today with complaints of left leg pain and discomfort. Patient has a chronic wounds to her toes of both feet. Patient has been being treated with antibiotics by her primary care. On exam we do note pulses in bilateral feet. Patient does have some redness to the middle toe of the left foot. Vital signs are normal except for some elevation in pulse in the 120s. Lungs are clear to auscultation. Abdomen soft nontender. Differential diagnosis includes but not limited to cellulitis of the foot, osteomyelitis, DVT. Ultrasound of the extremity indicated no DVT, x-ray and had some destruction of the distal tuft of the great toe and middle toe of the left foot. I suspect some osteomyelitis patient was given clindamycin 600 mg IV piggyback, and Cipro 500 mg. We will continue with clindamycin and Cipro. Patient wants to follow-up with her primary care tomorrow to discuss further evaluation and treatment. Strongly recommended patient follow-up with the drafting teacher for further treatment and possible IV antibiotic treatment. Lab Data : 02/09/22 23:15 02/09/22 23:15 Radiology Impressions Venous Duplex 02/09/22 23:04 IMPRESSION: No evidence of deep vein thrombosis. Foot X-Ray 02/10/22 00:34 IMPRESSION: No acute findings. Laboratory Results WBC 7.1 10^3/uL (4.0-10.0) 02/09/22 23:15 RBC 5.18 10^6/uL (4.1-5.3) 02/09/22 23:15 Hgb 12.1 g/dL (11.5-15.3) 02/09/22 23:15 Hct 39.2 % (37.0-47.0) 02/09/22 23:15 MCV 75.7 fl (81-99) L 02/09/22 23:15 MCH 23.4 pg (28.0-34.0) L 02/09/22 23:15 MCHC 30.9 g/dL (30.0-36.0) 02/09/22 23:15 RDW 17.8 % (12.1-15.1) H 02/09/22 23:15 Plt Count 353 10^3/cmm (130-400) 02/09/22 23:15 MPV 10.8 fL (7.4-10.4) H 02/09/22 23:15 Neut % (Auto) 74.8 % 02/09/22 23:15 Lymph % (Auto) 17.5 % 02/09/22 23:15 [place] % (Auto) 6.1 % 02/09/22 23:15 Eos % (Auto) 0.8 % 02/09/22 23:15 Baso % (Auto) 0.4 % 02/09/22 23:15 Neut # (Auto) 5.29 10^3/uL (1.8-7.7) 02/09/22 23:15 Lymph # (Auto) 1.2 10^3/uL (0.8-4.8) 02/09/22 23:15 [place] # (Auto) 0.4 10^3/uL (0.2-0.9) 02/09/22 23:15 Eos # (Auto) 0.1 10^3/uL (0.0-0.8) 02/09/22 23:15 Baso # (Auto) 0.0 10^3/uL (0.0-0.1) 02/09/22 23:15 Nucleated RBC % (auto) 0 % 02/09/22 23:15 Nucleated RBCs # 0.0 /100WBC 02/09/22 23:15 PT 13.80 SECONDS (12.1-14.9) 02/09/22 23:32 INR 1.03 (0.8-1.2) 02/09/22 23:32 Sodium 140 mmol/L (136-145) 02/09/22 23:15 Potassium 4.1 mmol/L (3.5-5.1) 02/09/22 23:15 Chloride 97 mmol/L (98-107) L 02/09/22 23:15 Carbon Dioxide 26 mmol/L (22-29) 02/09/22 23:15 Anion Gap 21.1 (5-19) H 02/09/22 23:15 BUN 16 mg/dL (8-23) 02/09/22 23:15 Creatinine 0.7 mg/dL (0.5-0.9) 02/09/22 23:15 GFR Calculation 84.5 mL/min (90-130) L 02/09/22 23:15 Glucose 186 mg/dL (65-115) H 02/09/22 23:15 Calculated Osmolality 296 mOsm/kg (285-295) H 02/09/22 23:15 Calcium 9.6 mg/dL (8.5-10.5) 02/09/22 23:15 Total Bilirubin 0.5 mg/dL (0.15-1.2) 02/09/22 23:15 AST 27 U/L (0-32) 02/09/22 23:15 ALT < 5 U/L (0-33) 02/09/22 23:15 Alkaline Phosphatase 143 IU/L (35-105) H 02/09/22 23:15 Total Protein 8.2 g/dL (6.6-8.7) 02/09/22 23:15 Albumin 4.3 g/dL (3.5-5.2) 02/09/22 23:15 Globulin 3.9 g/dL (1.3-4.6) 02/09/22 23:15 Urine Color Yellow (Yellow) 02/10/22 00:04 Urine Appearance Clear (CLEAR) 02/10/22 00:04 Urine pH 8 (5-7) H 02/10/22 00:04 Ur Specific Hir[place] 1.010 (1.005-1.030) 02/10/22 00:04 Urine Protein Neg (Negative) 02/10/22 00:04 Urine Glucose (UA) Norm (Normal) 02/10/22 00:04 Urine Ketones Negative (Negative) 02/10/22 00:04 Urine Blood Neg (Negative) 02/10/22 00:04 Urine Nitrate Negative (Negative) 02/10/22 00:04 Urine Bilirubin Neg (Negative) 02/10/22 00:04 Prot Sulfosalicylic Acd Negative (Negative) 02/10/22 00:04 Urine Urobilinogen Norm mg/dL (Negative) 02/10/22 00:04 Ur Leukocyte Esterase Negative (Negative) 02/10/22 00:04 Discharge Plan Discharge Patient Disposition: Home Clinical Impression: Peripheral neuralgia Acute osteomyelitis of toe Qualifiers: Laterality: left Qualified Code(s): M86.172 - Other acute osteomyelitis, left ankle and foot Condition: Stable Prescriptions: New clindamycin HCl 300 mg capsule 300 mg PO QID 7 Days Qty: 28 0RF Cipro 500 mg tablet 500 mg PO BID Qty: 14 0RF No Action alfalfa 600 mg tablet PO 0RF epinephrine 0.3 mg/0.3 mL auto-injector 0.3 mg IM DAILY PRN0RF Rx Instructions: for 2 doses garlic 500 mg capsule 500 mg PO DAILY 0RF lidocaine 3 % cream 1 applic topical TID PRN0RF loratadine [Allergy Relief (loratadine)] 10 mg tablet 10 mg PO DAILY 0RF multivitamin [Daily-Reji] Tablet 1 tab PO DAILY 0RF mupirocin 2 % ointment kit 1 applic topical BID 0RF levothyroxine [Synthroid] 200 mcg tablet 200 mcg PO DAILY 0RF furosemide 20 mg tablet 20 mg PO DAILY@0800 Qty: 90 3RF potassium chloride 20 mEq tablet extended release 20 meq PO DAILY Qty: 30 4RF cyclobenzaprine 10 mg Tablet 10 mg PO BID PRN (Reason: Spasms) 0RF clonidine HCl 0.1 mg Tablet 0.1 mg PO QAM 0RF albuterol sulfate 2.5 mg /3 mL (0.083 %) Solution For Nebulization 2.5 mg INHALATION Q4H PRN (Reason: Shortness Of Breath) 0RF gabapentin 400 mg Capsule See Rx Instructions .ROUTE .COMPLEX 0RF Rx Instructions: 800mg po qam and 400mg po qpm allopurinol 100 mg Tablet 100 mg PO DAILY 0RF hydrocodone-acetaminophen 10-325 mg tablet 1 tab PO Q4H PRN (Reason: Pain) 0RF aspirin 81 mg Tablet,Delayed Release (Dr/Ec) 162 mg PO BID 0RF Protonix 40 mg Tablet,Delayed Release (Dr/Ec) 40 mg PO DAILY 0RF metformin 1,000 mg Tablet 1,000 mg PO BID 0RF Serevent Diskus 50 mcg/dose Blister With Device 1 inh INHALATION BID 0RF gabapentin 100 mg Capsule 300 mg PO BEDTIME 0RF Vitamin D2 1,250 mcg (50,000 unit) Capsule 50,000 unit PO Q7D 0RF Rx Instructions: on sunday glipizide 5 mg Tablet 5 mg PO QAM 0RF Wellbutrin XL 150 mg Tablet Extended Release 24 Hr 150 mg PO QAM 0RF metoprolol tartrate 25 mg Tablet 25 mg PO BID 0RF [place] 1 gram Capsule 2 g PO BID 0RF levalbuterol tartrate 45 mcg/actuation Hfa Aerosol Inhaler 2 inh INHALATION Q6H PRN (Reason: Shortness Of Breath) 0RF hydrochlorothiazide 12.5 mg Tablet 12.5 mg PO QAM 0RF Voltaren Arthritis Pain 1 % Gel 2 g TOPICAL QID PRN (Reason: Pain) 0RF Vitamin B-12 1 tab PO DAILY 0RF Vitamin C 1 tab PO DAILY 0RF alpha lipoic acid 1 cap PO DAILY 0RF calcium 1 tab PO DAILY 0RF zinc 1 cap PO DAILY 0RF Plavix 75 mg Tablet 75 mg PO QAM Qty: 90 3RF lisinopril 10 mg Tablet 20 mg PO DAILY Qty: 30 3RF Discharge Orders: Discharge ED (Routine); Ordered 02/10/22 Ordered By: Maximilian Cedillo Discharge Diet: Usual diet Discharge Activity: Increase activity as tolerated Patient Instructions: Peripheral Neuropathy (ED), Opioid Safety Activity Restrictions/Additional Instructions: Activity as tolerated. Use acetaminophen for pain. Continue with your gabapentin as directed. Drink plenty of water and keep your blood sugar under good control. Take both antibiotics. Follow-up with primary care in morning further instruction. Would also strongly recommend that you follow-up with podiatry for further treatment. Return to ER for new concerns such as high fever or worsening symptoms. Coding Level of Care Code ED Stock Handler for Lucy Fwheena Exam Comprehensive
[2022-02-09 23:22] LABS: Basophils % 0.4 %; Eosinophils # 0.1 10^3/uL (0.0-0.8); Eosinophils % 0.8 %; Hematocrit 39.2 % (37.0-47.0); Hemoglobin 12.1 g/dL (11.5-15.3); Lymphocytes # 1.2 10^3/uL (0.8-4.8); Lymphocytes % 17.5 %; Mean Corpuscular HGB Conc 30.9 g/dL (30.0-36.0); Mean Corpuscular Hemoglobin 23.4 pg (28.0-34.0); Mean Corpuscular Volume 75.7 fl (81-99); Mean Platelet Volume 10.8 fL (7.4-10.4); Monocytes # 0.4 10^3/uL (0.2-0.9); Monocytes % 6.1 %; Neutrophils # 5.29 10^3/uL (1.8-7.7); Neutrophils % 74.8 %; Nucleated Red Blood Cells % 0 %; Platelet Count 353 10^3/cmm (130-400); Red Blood Count 5.18 10^6/uL (4.1-5.3); Red Cell Distribution Width 17.8 % (12.1-15.1); White Blood Count 7.1 10^3/uL (4.0-10.0)
[2022-02-09 23:27] VITALS: BP 143/87; PULSE 125; RESP 18; O2SAT 97
[2022-02-09 23:41] LABS: Alanine Aminotransferase < 5 U/L (0-33); Albumin Level 4.3 g/dL (3.5-5.2); Alkaline Phosphatase 143 IU/L (35-105); Anion Gap 21.1 (5-19); Aspartate Amino Transferase 27 U/L (0-32); Blood Urea Nitrogen 16 mg/dL (8-23); Calcium 9.6 mg/dL (8.5-10.5); Carbon Dioxide 26 mmol/L (22-29); Chloride 97 mmol/L (98-107); Globulin 3.9 g/dL (1.3-4.6); Glomerular Filtration Rate 84.5 mL/min (90-130); Glucose 186 mg/dL (65-115); Osmolality Calculated 296 mOsm/kg (285-295); Potassium 4.1 mmol/L (3.5-5.1); Sodium 140 mmol/L (136-145); Total Bilirubin 0.5 mg/dL (0.15-1.2); Total Protein 8.2 g/dL (6.6-8.7)
[2022-02-09] MEDS: sodium chloride 0.9% 500 ML 999 ML IV (23:49)
[2022-02-09] MEDS: diphenhydrAMINE 50 mg Capsule PO (23:49)
[2022-02-09 23:57] LABS: INR 1.03 (0.8-1.2)
[2022-02-10 00:20] LABS: Add Urine Microscopic? NO; Charge for UA Resulting for Rev
[2022-02-10 00:24] LABS: Urine Appearance Clear (CLEAR); Urine Color Yellow (Yellow); pH Urine 8 (5-7)
[2022-02-10 00:25] LABS: Bilirubin Urine Neg (Negative); Blood Urine Neg (Negative); Glucose Urine UA Norm (Normal); Ketones Urine Negative (Negative); Leukocyte Esterase Urine Negative (Negative); Nitrate Urine Negative (Negative); Protein Urine Neg (Negative); Sulfosalicylic Acid Urine Negative (Negative); Urobilinogen Urine Norm (Negative)
--- NOTE | 2022-02-10 00:34 | XRR_ITS ---
PROCEDURE INFORMATION: Exam: XR Left Foot Exam date and time: 02/10/2022 1:10 AM Age: 61 years old Clinical indication: Pain; Cellulitis; Toes; Patient HX: Multiple diabetic sores to the digits of left foot. TECHNIQUE: Imaging protocol: Radiologic exam of the Left foot. Views: 3 or more views. COMPARISON: [place] [id number] 02/09/2022 11:17 PM FINDINGS: Bones/joints: Normal. Soft tissues: Normal. XR/XR foot LT min 3V* [id number] IMPRESSION: No acute findings.
[2022-02-10] MEDS: clindamycin 600 MG/50 ML PREMIX 100 MG IV (00:50)
[2022-02-10 01:00] VITALS: BP 148/87; PULSE 130; RESP 18; O2SAT 94
[2022-02-10] MEDS: ciprofloxacin 500 mg Tablet PO (01:09)
[2022-02-10 02:00] VITALS: BP 117/93; PULSE 128; RESP 18; O2SAT 95
[2022-02-10 02:18] VITALS: BP 117/93; PULSE 128; RESP 18; O2SAT 95
== END 2022-02-10 02:25 | disposition home or self-care (01) ==
PROVIDERS: Emergency Provider Nurse Practitioner Family
DX: G58.8 Other specified mononeuropathies (principal); M86.172 Other acute osteomyelitis, left ankle and foot; Z79.84 Long term (current) use of oral hypoglycemic drugs; Z79.02 Long term (current) use of antithrombotics/antiplatelets; Z79.82 Long term (current) use of aspirin; Z86.73 Personal history of transient ischemic attack (TIA), and cerebral infarction without residual deficits; E78.5 Hyperlipidemia, unspecified; I10 Essential (primary) hypertension; E11.9 Type 2 diabetes mellitus without complications; Z87.891 Personal history of nicotine dependence; M79.605 Pain in left leg
CPT/HCPCS: 73630; 80053; 81003; 85025; 85610; 93971; 96365; 99284; J3490; J7040; Q0163

== ENCOUNTER 2022-06-10 04:13 | Emergency (ER) | payer MEDICARE, OTHER, SELFPAY ==
[2022-06-10] VITALS (13 sets, daily range): BP systolic 128–194; BP diastolic 83–116; PULSE 78–123; RESP 13–95; TEMP 36.7; O2SAT 92–100; BMI 25.0
--- NOTE | 2022-06-10 04:22 | ED_ITS ---
Documented by User: Eriberto Bush DO 06/10/22 20:03 HPI - Chest Pain General: Chief Complaint: Chest Pain Stated Complaint: CP Time Seen by Provider: 06/10/22 04:16 Source: patient History of Present Illness: 61-year-old female with a history of coronary disease asthma. She presents with chest discomfort that started yesterday evening. She really notes that she has had a cough and some chest discomfort on and off for the past 2 days or so. No fever. Clear to yellow sputum production. She reports that she has 5 stents in her heart, that were placed here. Last around 1 year ago MD complaint: chest pain Pertinent past history: coronary artery disease and asthma Onset (ago): hour(s) Timing of current episode: constant Onset: during rest Pain location: substernal Pain radiation: none Quality: aching Relieving factors: nothing Exacerbating factors: nothing Associated symptoms: Reports dyspnea and nausea; Deny abdominal pain, diaphoresis, fever(s), leg edema, sense of impending doom or vomiting Review of Systems Const: Denies: fever(s), chills or diaphoresis ENMT: Denies: throat pain Card: Denies: chest pain Resp: Reports: dyspnea and productive cough GI: Reports: nausea; Denies: abdominal pain or vomiting Musc: Denies: back pain Skin/Breast: Denies: rash Neuro: Denies: headache(s) Endo: Denies: polyuria PFSH ED PFSH: Medical History Asthma CVA (cerebral vascular accident) Residual right hemiparesis GERD (gastroesophageal reflux disease) Gout History of poliomyelitis without residual effect Hyperlipidemia Statin was increased therefore we will discontinue amlodipine for interaction Hypertension Hypothyroidism Personal history of congenital hip dysplasia Sustained SVT History of ablation Type 2 diabetes mellitus As per medicine Surgical History History of bilateral carotid endarterectomy History of cholecystectomy History of hip replacement, total History of knee surgery History of neck surgery Hx of exploratory laparotomy Family History Other CAD (coronary artery disease) Social History Smoking and tobacco status: former smoker Alcohol intake: former Physical Exam Const: COMMON NORMALS: no acute distress GENERAL APPEARANCE: cooperative; not ill appearing and not frail appearing HENMT: COMMON NORMALS: normocephalic, atraumatic and Normal external nose p resent HEAD & SCALP: normocephalic and atraumatic NOSE: Normal external nose present GENERAL EAR: hearing grossly impaired THROAT: posterior oropharynx normal Eye: COMMON NORMALS: Equal, round and reactive pupils present and EOMs intact bilaterally PUPIL: Yes Equal, round and reactive pupils present Neck/C-Spine: COMMON NORMALS: full ROM GENERAL: Yes trachea midline Chest: COMMONS NORMALS: normal inspection of the chest and normal inspection of the breasts Breast/axilla inspection: Yes normal inspection of the breasts Resp: COMMON NORMALS: normal respiratory effort, No use of accessory muscles and clear to auscultation bilaterally AUSCULTATION: clear to auscultation bilaterally Cardio: COMMON NORMALS: regular rate, regular rhythm and Peripheral pulses 2+ throughout RATE: regular rate RHYTHM: regular rhythm PERIPHERAL PULSES: Peripheral pulses 2+ throughout Course Vital Signs: Vital signs: Vital Signs Temperature 98.1 F 06/10/22 04:14 Pulse Rate 93 06/10/22 10:37 Respiratory Rate 26 H 06/10/22 10:37 Blood Pressure 145/83 06/10/22 10:37 Pulse Oximetry 100 06/10/22 10:37 Oxygen Delivery Me thod 06/10/22 07:00 MDM - Chest Pain Medical Decision Making 61-year-old female with a history of coronary disease. She has had intervention 1 year ago. No testing since. EKG initially showed a sinus tachycardia with a rate of 115, essentially normal axis and intervals, and no ST elevation. Pain is improved currently. Her heart rate is down to 75. Saturations 94%. Blood pressure was initially quite high, now 133/81 after labetalol. Respirations are 14. Her CBC is normal. Her BMP is not remarkable. Her first troponin is only 12. Her BNP is 353. Her chest x-ray is nonacute. She has a second troponin pending. She does have a history of some respiratory symptoms, and what she refers to is bad asthma. Lab Data : 06/10/22 04:30 06/10/22 04:30 Radiology Impressions Chest X-Ray 06/10/22 04:55 IMPRESSION: No chest radiographic evidence of acute cardiopulmonary disease. Laboratory Results WBC 8.1 10^3/uL (4.0-10.0) 06/10/22 04:30 RBC 4.81 10^6/uL (4.1-5.3) 06/10/22 04:30 Hgb 12.0 g/dL (11.5-15.3) 06/10/22 04:30 Hct 39.3 % (37.0-47.0) 06/10/22 04:30 MCV 81.7 fl (81-99) 06/10/22 04:30 MCH 24.9 pg (28.0-34.0) L 06/10/22 04:30 MCHC 30.5 g/dL (30.0-36.0) 06/10/22 04:30 RDW 17.5 % (12.1-15.1) H 06/10/22 04:30 Plt Count 293 10^3/cmm (130-400) 06/10/22 04:30 MPV 12.6 fL (7.4-10.4) H 06/10/22 04:30 Neut % (Auto) 62.8 % 06/10/22 04:30 Lymph % (Auto) 28.5 % 06/10/22 04:30 Cross % (Auto) 6.7 % 06/10/22 04:30 Eos % (Auto) 1.1 % 06/10/22 04:30 Baso % (Auto) 0.5 % 06/10/22 04:30 Neut # (Auto) 5.07 10^3/uL (1.8-7.7) 06/10/22 04:30 Lymph # (Auto) 2.3 10^3/uL (0.8-4.8) 06/10/22 04:30 Cross # (Auto) 0.5 10^3/uL (0.2-0.9) 06/10/22 04:30 Eos # (Auto) 0.1 10^3/uL (0.0-0.8) 06/10/22 04:30 Baso # (Auto) 0.0 10^3/uL (0.0-0.1) 06/10/22 04:30 Nucleated RBC % (auto) 0 % 06/10/22 04:30 Nucleated RBCs # 0.0 /100WBC 06/10/22 04:30 PT 13.20 SECONDS (12.1-14.9) 06/10/22 04:30 INR 0.97 (0.8-1.2) 06/10/22 04:30 APTT 21.3 SECONDS (23.9-36.7) L 06/10/22 04:30 Sodium 139 mmol/L (136-145) 06/10/22 04:30 Potassium 3.5 mmol/L (3.5-5.1) 06/10/22 04:30 Chloride 100 mmol/L (98-107) 06/10/22 04:30 Carbon Dioxide 25 mmol/L (22-29) 06/10/22 04:30 Anion Gap 17.5 (5-19) 06/10/22 04:30 BUN 13 mg/dL (8-23) 06/10/22 04:30 Creatinine 0.6 mg/dL (0.5-0.9) 06/10/22 04:30 GFR Calculation 101.0 mL/min (90-130) 06/10/22 04:30 Glucose 162 mg/dL (65-115) H 06/10/22 04:30 Calculated Osmolality 292 mOsm/kg (285-295) 06/10/22 04:30 Calcium 9.5 mg/dL (8.5-10.5) 06/10/22 04:30 Total Bilirubin 0.4 mg/dL (0.15-1.2) 06/10/22 04:30 AST 18 U/L (0-32) 06/10/22 04:30 ALT 12 U/L (0-33) 06/10/22 04:30 Alkaline Phosphatase 105 U/L (35-105) 06/10/22 04:30 Troponin T Baseline 12 ng/L (0-10) H 06/10/22 04:30 Troponin T 120 Minute 11.20 ng/L (0-10) H 06/10/22 06:06 Delta Troponin T -0.80 ABS# (0-10) L 06/10/22 06:06 NT-Pro-B Natriuret Pep 353 pg/mL (0-125) H 06/10/22 04:30 Total Protein 7.3 g/dL (6.6-8.7) 06/10/22 04:30 Albumin 4.1 g/dL (3.5-5.2) 06/10/22 04:30 Globulin 3.2 g/dL (1.3-4.6) 06/10/22 04:30 Discharge Plan Discharge Patient Disposition: Home Clinical Impression: Nausea & vomiting, Gastroenteritis Condition: Stable Prescriptions: New promethazine 25 mg tablet 25 mg PO Q6H PRN (Reason: nausea and vomiting) Qty: 20 0RF No Action alfalfa 600 mg tablet PO epinephrine 0.3 mg/0.3 mL auto-injector 0.3 mg IM DAILY PRN Rx Instructions: for 2 doses garlic 500 mg capsule 500 mg PO DAILY lidocaine 3 % cream 1 applic topical TID PRN loratadine [Allergy Relief (loratadine)] 10 mg tablet 10 mg PO DAILY multivitamin [Daily-Reji] Tablet 1 tab PO DAILY mupirocin 2 % ointment kit 1 applic topical BID levothyroxine [Synthroid] 200 mcg tablet 200 mcg PO DAILY furosemide 20 mg tablet 20 mg PO DAILY@0800 Qty: 90 3RF potassium chloride 20 mEq tablet extended release 20 meq PO DAILY Qty: 30 4RF cyclobenzaprine 10 mg Tablet 10 mg PO BID PRN (Reason: Spasms) clonidine HCl 0.1 mg Tablet 0.1 mg PO QAM albuterol sulfate 2.5 mg /3 mL (0.083 %) Solution For Nebulization 2.5 mg INHALATION Q4H PRN (Reason: Shortness Of Breath) gabapentin 400 mg Capsule See Rx Instructions .ROUTE .COMPLEX Rx Instructions: 800mg po qam and 400mg po qpm allopurinol 100 mg Tablet 100 mg PO DAILY hydrocodone-acetaminophen 10-325 mg tablet 1 tab PO Q4H PRN (Reason: Pain) aspirin 81 mg Tablet,Delayed Release (Dr/Ec) 162 mg PO BID Protonix 40 mg Tablet,Delayed Release (Dr/Ec) 40 mg PO DAILY metformin 1,000 mg Tablet 1,000 mg PO BID Serevent Diskus 50 mcg/dose Blister With Device 1 inh INHALATION BID gabapentin 100 mg Capsule 300 mg PO BEDTIME Vitamin D2 1,250 mcg (50,000 unit) Capsule 50,000 unit PO Q7D Rx Instructions: on sunday glipizide 5 mg Tablet 5 mg PO QAM Wellbutrin XL 150 mg Tablet Extended Release 24 Hr 150 mg PO QAM metoprolol tartrate 25 mg Tablet 25 mg PO BID Lovaza 1 gram Capsule 2 g PO BID levalbuterol tartrate 45 mcg/actuation Hfa Aerosol Inhaler 2 inh INHALATION Q6H PRN (Reason: Shortness Of Breath) hydrochlorothiazide 12.5 mg Tablet 12.5 mg PO QAM Voltaren Arthritis Pain 1 % Gel 2 g TOPICAL QID PRN (Reason: Pain) Vitamin B-12 1 tab PO DAILY Vitamin C 1 tab PO DAILY alpha lipoic acid 1 cap PO DAILY calcium 1 tab PO DAILY zinc 1 cap PO DAILY Plavix 75 mg Tablet 75 mg PO QAM Qty: 90 3RF lisinopril 10 mg Tablet 20 mg PO DAILY Qty: 30 3RF Cipro 500 mg tablet 500 mg PO BID Qty: 14 0RF Discharge Orders: Discharge ED (Routine); Ordered 06/10/22 Ordered By: Babatunde Arana Discharge Diet: Usual diet Discharge Activity: Resume usual activity Patient Instructions: Opioid Safety, Pain Management Activity Restrictions/Additional Instructions: Clear liquid diet for the next 24 to 48 hours and advance as tolerated. Return to the emergency room if you have worsening symptoms. Sign Out Sign Out Data: Patient Sign Out occurred on 06/10/22 at 07:13. Patient's care was discussed, and care was transferred from to Babatunde Arana DO. Coding Level of Care Code ED [employer] Teacher for Chg Fwd Exam Detailed Documented by User: Babatunde Arana DO 06/20/22 10:29 HPI - Chest Pain General: Chief Complaint: Chest Pain Stated Complaint: CP Time Seen by Provider: 06/10/22 04:16 [facility] ED PFSH: Medical History Asthma CVA (cerebral vascular accident) Residual right hemiparesis GERD (gastroesophageal reflux disease) Gout History of poliomyelitis without residual effect Hyperlipidemia Statin was increased therefore we will discontinue amlodipine for interaction Hypertension Hypothyroidism Personal history of congenital hip dysplasia Sustained SVT History of ablation Type 2 diabetes mellitus As per medicine Surgical History History of bilateral carotid endarterectomy History of cholecystectomy History of hip replacement, total History of knee surgery History of neck surgery Hx of exploratory laparotomy Family History Other CAD (coronary artery disease) Social History Smoking and tobacco status: former smoker Alcohol intake: former Course Vital Signs: Vital signs: Vital Signs Temperature 98.1 F 06/10/22 04:14 Pulse Rate 93 06/10/22 10:37 Respiratory Rate 26 H 06/10/22 10:37 Blood Pressure 145/83 06/10/22 10:37 Pulse Oximetry 100 06/10/22 10:37 Oxygen Delivery Me thod 06/10/22 07:00 MDM - Chest Pain Medical Decision Making 61-year-old female with a history of coronary disease. She has had intervention 1 year ago. No testing since. EKG initially showed a sinus tachycardia with a rate of 115, essentially normal axis and intervals, and no ST elevation. Pain is improved currently. Her heart rate is down to 75. Saturations 94%. Blood pressure was initially quite high, now 133/81 after labetalol. Respirations are 14. Her CBC is normal. Her BMP is not remarkable. Her first troponin is only 12. Her BNP is 353. Her chest x-ray is nonacute. She has a second troponin pending. She does have a history of some respiratory symptoms, and what she refers to is bad asthma. Second troponin negative. Treat symptoms as needed. Worsening problems return to emergency room we will set her up for an outpatient stress test. Medical Records I reviewed the patient's medical records. Lab Data I reviewed the patient's lab results. : 06/10/22 04:30 06/10/22 04:30 Radiology Impressions Chest X-Ray 06/10/22 04:55 IMPRESSION: No chest radiographic evidence of acute cardiopulmonary disease. Laboratory Results WBC 8.1 10^3/uL (4.0-10.0) 06/10/22 04:30 RBC 4.81 10^6/uL (4.1-5.3) 06/10/22 04:30 Hgb 12.0 g/dL (11.5-15.3) 06/10/22 04:30 Hct 39.3 % (37.0-47.0) 06/10/22 04:30 MCV 81.7 fl (81-99) 06/10/22 04:30 MCH 24.9 pg (28.0-34.0) L 06/10/22 04:30 MCHC 30.5 g/dL (30.0-36.0) 06/10/22 04:30 RDW 17.5 % (12.1-15.1) H 06/10/22 04:30 Plt Count 293 10^3/cmm (130-400) 06/10/22 04:30 MPV 12.6 fL (7.4-10.4) H 06/10/22 04:30 Neut % (Auto) 62.8 % 06/10/22 04:30 Lymph % (Auto) 28.5 % 06/10/22 04:30 Cross % (Auto) 6.7 % 06/10/22 04:30 Eos % (Auto) 1.1 % 06/10/22 04:30 Baso % (Auto) 0.5 % 06/10/22 04:30 Neut # (Auto) 5.07 10^3/uL (1.8-7.7) 06/10/22 04:30 Lymph # (Auto) 2.3 10^3/uL (0.8-4.8) 06/10/22 04:30 Cross # (Auto) 0.5 10^3/uL (0.2-0.9) 06/10/22 04:30 Eos # (Auto) 0.1 10^3/uL (0.0-0.8) 06/10/22 04:30 Baso # (Auto) 0.0 10^3/uL (0.0-0.1) 06/10/22 04:30 Nucleated RBC % (auto) 0 % 06/10/22 04:30 Nucleated RBCs # 0.0 /100WBC 06/10/22 04:30 PT 13.20 SECONDS (12.1-14.9) 06/10/22 04:30 INR 0.97 (0.8-1.2) 06/10/22 04:30 APTT 21.3 SECONDS (23.9-36.7) L 06/10/22 04:30 Sodium 139 mmol/L (136-145) 06/10/22 04:30 Potassium 3.5 mmol/L (3.5-5.1) 06/10/22 04:30 Chloride 100 mmol/L (98-107) 06/10/22 04:30 Carbon Dioxide 25 mmol/L (22-29) 06/10/22 04:30 Anion Gap 17.5 (5-19) 06/10/22 04:30 BUN 13 mg/dL (8-23) 06/10/22 04:30 Creatinine 0.6 mg/dL (0.5-0.9) 06/10/22 04:30 GFR Calculation 101.0 mL/min (90-130) 06/10/22 04:30 Glucose 162 mg/dL (65-115) H 06/10/22 04:30 Calculated Osmolality 292 mOsm/kg (285-295) 06/10/22 04:30 Calcium 9.5 mg/dL (8.5-10.5) 06/10/22 04:30 Total Bilirubin 0.4 mg/dL (0.15-1.2) 06/10/22 04:30 AST 18 U/L (0-32) 06/10/22 04:30 ALT 12 U/L (0-33) 06/10/22 04:30 Alkaline Phosphatase 105 U/L (35-105) 06/10/22 04:30 Troponin T Baseline 12 ng/L (0-10) H 06/10/22 04:30 Troponin T 120 Minute 11.20 ng/L (0-10) H 06/10/22 06:06 Delta Troponin T -0.80 ABS# (0-10) L 06/10/22 06:06 NT-Pro-B Natriuret Pep 353 pg/mL (0-125) H 06/10/22 04:30 Total Protein 7.3 g/dL (6.6-8.7) 06/10/22 04:30 Albumin 4.1 g/dL (3.5-5.2) 06/10/22 04:30 Globulin 3.2 g/dL (1.3-4.6) 06/10/22 04:30 Discharge Plan Discharge Patient Disposition: Home Clinical Impression: Nausea & vomiting, Gastroenteritis Condition: Stable Prescriptions: New promethazine 25 mg tablet 25 mg PO Q6H PRN (Reason: nausea and vomiting) Qty: 20 0RF No Action alfalfa 600 mg tablet PO epinephrine 0.3 mg/0.3 mL auto-injector 0.3 mg IM DAILY PRN Rx Instructions: for 2 doses garlic 500 mg capsule 500 mg PO DAILY lidocaine 3 % cream 1 applic topical TID PRN loratadine [Allergy Relief (loratadine)] 10 mg tablet 10 mg PO DAILY multivitamin [Daily-Reji] Tablet 1 tab PO DAILY mupirocin 2 % ointment kit 1 applic topical BID levothyroxine [Synthroid] 200 mcg tablet 200 mcg PO DAILY furosemide 20 mg tablet 20 mg PO DAILY@0800 Qty: 90 3RF potassium chloride 20 mEq tablet extended release 20 meq PO DAILY Qty: 30 4RF cyclobenzaprine 10 mg Tablet 10 mg PO BID PRN (Reason: Spasms) clonidine HCl 0.1 mg Tablet 0.1 mg PO QAM albuterol sulfate 2.5 mg /3 mL (0.083 %) Solution For Nebulization 2.5 mg INHALATION Q4H PRN (Reason: Shortness Of Breath) gabapentin 400 mg Capsule See Rx Instructions .ROUTE .COMPLEX Rx Instructions: 800mg po qam and 400mg po qpm allopurinol 100 mg Tablet 100 mg PO DAILY hydrocodone-acetaminophen 10-325 mg tablet 1 tab PO Q4H PRN (Reason: Pain) aspirin 81 mg Tablet,Delayed Release (Dr/Ec) 162 mg PO BID Protonix 40 mg Tablet,Delayed Release (Dr/Ec) 40 mg PO DAILY metformin 1,000 mg Tablet 1,000 mg PO BID Serevent Diskus 50 mcg/dose Blister With Device 1 inh INHALATION BID gabapentin 100 mg Capsule 300 mg PO BEDTIME Vitamin D2 1,250 mcg (50,000 unit) Capsule 50,000 unit PO Q7D Rx Instructions: on sunday glipizide 5 mg Tablet 5 mg PO QAM Wellbutrin XL 150 mg Tablet Extended Release 24 Hr 150 mg PO QAM metoprolol tartrate 25 mg Tablet 25 mg PO BID Lovaza 1 gram Capsule 2 g PO BID levalbuterol tartrate 45 mcg/actuation Hfa Aerosol Inhaler 2 inh INHALATION Q6H PRN (Reason: Shortness Of Breath) hydrochlorothiazide 12.5 mg Tablet 12.5 mg PO QAM Voltaren Arthritis Pain 1 % Gel 2 g TOPICAL QID PRN (Reason: Pain) Vitamin B-12 1 tab PO DAILY Vitamin C 1 tab PO DAILY alpha lipoic acid 1 cap PO DAILY calcium 1 tab PO DAILY zinc 1 cap PO DAILY Plavix 75 mg Tablet 75 mg PO QAM Qty: 90 3RF lisinopril 10 mg Tablet 20 mg PO DAILY Qty: 30 3RF Cipro 500 mg tablet 500 mg PO BID Qty: 14 0RF Discharge Orders: Discharge ED (Routine); Ordered 06/10/22 Ordered By: Babatunde Arana Discharge Diet: Usual diet Discharge Activity: Resume usual activity Patient Instructions: Opioid Safety, Pain Management Activity Restrictions/Additional Instructions: Clear liquid diet for the next 24 to 48 hours and advance as tolerated. Return to the emergency room if you have worsening symptoms. Sign Out Sign Out Data: Patient Sign Out occurred on 06/10/22 at 07:13. Patient's care was discussed, and care was transferred from to Babatunde Arana DO. Coding Level of Care Code ED [employer] Teacher for Lucy Fwd Exam Detailed
--- NOTE | 2022-06-10 04:24 | ECG_ITS ---
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 Measurements Intervals [place] Rate: 115 P: 64 HI: 153 QRS: 0 QRSD: 72 T: 58 QT: 333 QTc: 461 Interpretive Statements SINUS TACHYCARDIA WITH OCCASIONAL SUPRAVENTRICULAR PREMATURE COMPLEXES MODERATE ST DEPRESSION [0.05+ mV ST DEPRESSION] Compared to ECG 06/14/2021 08:09:39 Sinus rhythm no longer present ST (T wave) deviation still present Electronically Signed On 06-12-2022 23:05:19 CDT by Sophia Field M.D. [id number]
--- NOTE | 2022-06-10 04:55 | XRR_ITS ---
PROCEDURE INFORMATION: Exam: XR Chest Exam date and time: 06/10/2022 4:56 AM Age: 61 years old Clinical indication: Chest pressure; Prior surgery; Surgery type: Cardiac stents. Gb; Patient HX: C/O chest pain with n/v. TECHNIQUE: Imaging protocol: Radiologic exam of the chest. Views: 1 view. COMPARISON: CR XR chest 1V portable [id number] 06/18/2021 8:46 AM FINDINGS: Lungs: Normal lung volumes. No interstitial or airspace opacities. Pleural spaces: No pleural effusion. No pneumothorax. Heart/Mediastinum: Normal heart size. There is a mildly tortuous thoracic aorta. Midline trachea. Bones/joints: No acute abnormalities. Minimal rightward curvature of the midthoracic spine is seen. There is osteopenia. Soft tissues: Multiple external densities are seen overlying the chest, limiting assessment. XR/XR chest 1V portable [id number] IMPRESSION: No chest radiographic evidence of acute cardiopulmonary disease.
[2022-06-10 04:56] LABS: Basophils % 0.5 %; Eosinophils # 0.1 10^3/uL (0.0-0.8); Eosinophils % 1.1 %; Hematocrit 39.3 % (37.0-47.0); Lymphocytes # 2.3 10^3/uL (0.8-4.8); Lymphocytes % 28.5 %; Mean Corpuscular HGB Conc 30.5 g/dL (30.0-36.0); Mean Corpuscular Hemoglobin 24.9 pg (28.0-34.0); Mean Corpuscular Volume 81.7 fl (81-99); Mean Platelet Volume 12.6 fL (7.4-10.4); Monocytes # 0.5 10^3/uL (0.2-0.9); Monocytes % 6.7 %; Neutrophils # 5.07 10^3/uL (1.8-7.7); Neutrophils % 62.8 %; Nucleated Red Blood Cells % 0 %; Platelet Count 293 10^3/cmm (130-400); Red Blood Count 4.81 10^6/uL (4.1-5.3); Red Cell Distribution Width 17.5 % (12.1-15.1); White Blood Count 8.1 10^3/uL (4.0-10.0)
[2022-06-10] MEDS: morphine 4 mg/mL SDV 1 mL IVP (04:56)
[2022-06-10] MEDS: ondansetron 2 mg/ML SDV 2 mL 4 MG IVP (04:56)
[2022-06-10 05:11] LABS: INR 0.97 (0.8-1.2); Partial Thromboplastin Time 21.3 SECONDS (23.9-36.7)
[2022-06-10 05:22] LABS: Troponin(5th) Baseline 12 ng/L (0-10)
[2022-06-10 05:30] LABS: Alanine Aminotransferase 12 U/L (0-33); Albumin Level 4.1 g/dL (3.5-5.2); Alkaline Phosphatase 105 U/L (35-105); Anion Gap 17.5 (5-19); Aspartate Amino Transferase 18 U/L (0-32); Blood Urea Nitrogen 13 mg/dL (8-23); Calcium 9.5 mg/dL (8.5-10.5); Carbon Dioxide 25 mmol/L (22-29); Chloride 100 mmol/L (98-107); Globulin 3.2 g/dL (1.3-4.6); Glucose 162 mg/dL (65-115); NT Pro B Type Natriuretic Pept 353 pg/mL (0-125); Osmolality Calculated 292 mOsm/kg (285-295); Potassium 3.5 mmol/L (3.5-5.1); Sodium 139 mmol/L (136-145); Total Bilirubin 0.4 mg/dL (0.15-1.2); Total Protein 7.3 g/dL (6.6-8.7)
[2022-06-10] MEDS: labetalol 5 mg/mL SDV 20mL 20 MG IVP (05:56)
--- NOTE | 2022-06-10 06:57 | ECG_ITS ---
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 Measurements Intervals [place] Rate: 80 P: -28 VA: 123 QRS: 3 QRSD: 69 T: 22 QT: 374 QTc: 433 Interpretive Statements SINUS RHYTHM Compared to ECG 06/10/2022 04:24:01 Sinus tachycardia no longer present ST (T wave) deviation no longer present Electronically Signed On 06-12-2022 23:16:53 CDT by Sophia Field M.D. [id number]
[2022-06-10] MEDS: sodium chloride 0.9% 1,000 ML 999 ML IV (08:43)
[2022-06-10] MEDS: promethazine 25 mg/mL SDV 1 mL IM (08:44)
--- NOTE | 2022-06-10 09:44 | PC.NURSE ---
attempted to contact pt's grandson, brandee, for a ride per pt request. no answer and no voicemail box set up
--- NOTE | 2022-06-10 09:47 | PC.NURSE ---
attempted to contact pts other grandson, Jaquan, for ride for pt. no answer
== END 2022-06-10 10:38 | disposition home or self-care (01) ==
PROVIDERS: Emergency Medicine; Emergency Provider Family Medicine
DX: K52.9 Noninfective gastroenteritis and colitis, unspecified (principal); R07.9 Chest pain, unspecified; I25.10 Atherosclerotic heart disease of native coronary artery without angina pectoris; Z79.891 Long term (current) use of opiate analgesic; Z79.82 Long term (current) use of aspirin; Z79.02 Long term (current) use of antithrombotics/antiplatelets; E11.9 Type 2 diabetes mellitus without complications; Z79.84 Long term (current) use of oral hypoglycemic drugs
CPT/HCPCS: 71045; 80053; 83880; 84484; 85025; 85610; 85730; 93005; 96372; 96374; 96375; 99285; J2270; J2405; J2550; J3490; J7030

== ENCOUNTER 2024-01-13 19:52 | Emergency (ER) | payer MEDICARE, OTHER, SELFPAY ==
[2024-01-13 19:53] VITALS: BP 165/97; PULSE 95; RESP 18; TEMP 36.9; O2SAT 97; BMI 23.5
--- NOTE | 2024-01-13 20:00 | XRR_ITS ---
PROCEDURE INFORMATION: Exam: XR Left Shoulder Exam date and time: 01/13/2024 8:10 PM Age: 63 years old Clinical indication: Injury or trauma; Blunt trauma (contusions or hematomas); Patient HX: C/O worsening left shoulder and rib pain post fall one week ago. ; Additional info: Fall pain TECHNIQUE: Imaging protocol: Radiologic exam of the left shoulder. Views: 2 or more views. COMPARISON: CR (CHEST, ) 01/13/2024 8:07 PM FINDINGS: Bones/joints: Bones are moderately osteopenic. There is no evidence of fracture or dislocation. There are degenerative changes in the thoracic spine. Soft tissues: Normal. XR/XR shoulder LT min 2V* [id number] IMPRESSION: No acute finding.
--- NOTE | 2024-01-13 20:00 | XRR_ITS ---
PROCEDURE INFORMATION: Exam: XR Left Ribs with PA Chest Exam date and time: 01/13/2024 8:07 PM Age: 63 years old Clinical indication: Injury or trauma; Rib area, left side; Blunt trauma; Prior surgery; Surgery date: 6+ months; Surgery type: Gb; Patient HX: C/O worsening left shoulder and rib pain post fall one week ago. ; Additional info: Fall rib pain TECHNIQUE: Imaging protocol: Radiologic exam of the left ribs with PA chest. Views: 3 views COMPARISON: CR XR chest 1V portable [id number] 06/10/2022 4:56 AM FINDINGS: Lungs: There is no pulmonary venous congestion. Visualized portions of the lungs are clear. Pleural spaces: Unremarkable. No pleural effusion. No pneumothorax. Heart/Mediastinum: Coronary artery stents are identified. Heart is within normal limits of size. Bones/joints: No displaced rib fracture is identified. XR/XR ribs LT mn 3V w CXR1V [id number] IMPRESSION: No acute infiltrate.
--- NOTE | 2024-01-13 20:01 | ED_ITS ---
HPI - Fall General: Chief Complaint: Fall Stated Complaint: SHOULDER PAIN Time Seen by Provider: 01/13/24 19:53 History of Present Illness: Patient presents to the ER with complaints of a fall a week ago and having increased left shoulder pain and left chest wall pain. The pain is worse when she moves her arm or when she takes a big deep breath. There was no loss of consciousness. The fall was from standing position. There was no head trauma or loss of consciousness. Review of Systems General: Reports: 10 or more systems reviewed and unremarkable except in HPI and below PFSH ED PFSH: Medical History Type 2 diabetes mellitus As per medicine GERD (gastroesophageal reflux disease) Hypertension Personal history of congenital hip dysplasia History of poliomyelitis without residual effect CVA (cerebral vascular accident) Residual right hemiparesis Asthma Hypothyroidism Sustained SVT History of ablation Hyperlipidemia Statin was increased therefore we will discontinue amlodipine for interaction Gout Surgical History History of knee surgery History of bilateral carotid endarterectomy Hx of exploratory laparotomy History of cholecystectomy History of neck surgery History of hip replacement, total Family History Other CAD (coronary artery disease) Social History Smoking and tobacco/nicotine status: former use of tobacco/nicotine Alcohol intake: former Substance/Drug Use: never Physical Exam Const: COMMON NORMALS: no acute distress, average body habitus, patient oriented x3, no limitations, healthy appearing, alert and well nourished HENMT: COMMON NORMALS: normocephalic, atraumatic, hearing grossly normal bilaterally, external ears normal, Normal external nose present, moist oral mucous membranes and oropharynx normal HEAD & SCALP: normocephalic and atraumatic NOSE: Normal external nose present EXTERNAL EAR: Yes external ears normal Neck/C-Spine: COMMON NORMALS: full ROM, no lymphadenopathy, supple, no meningeal signs, no JVD and Thyroid normal THYROID: Thyroid normal Chest: COMMONS NORMALS: normal inspection of the chest; negative for normal palpation of entire chest wall (Tenderness with palpation over left lateral chest wall no obvious crepitus ) Resp: COMMON NORMALS: normal respiratory effort, No retractions, No use of accessory muscles and clear to auscultation bilaterally AUSCULTATION: clear to auscultation bilaterally Cardio: COMMON NORMALS: no JVD, regular rate, regular rhythm, S1 normal heart sound present, No gallops present (Cardio), No clicks present (Cardio), No murmurs present (Cardio) and No rub (Cardio) RATE: regular rate RHYTHM: regular rhythm HEART SOUNDS: S1 normal heart sound present GI: COMMON NORMALS: Normal to inspection, nondistended, normoactive bowel sounds present, Soft to palpation, non-tender, No hepatosplenomegaly present and no masses PALPATION: Yes Soft to palpation and Yes No hepatosplenomegaly present Extremity: NARRATIVE EXTREMITY EXAM: Tenderness with palpation over left shoulder region no obvious deformity crepitus or subcu emphysema noted Neuro: COMMON NORMALS: patient oriented x3 SENSORIUM/ORIENTATION: Yes alert MENINGEAL SIGNS: Yes no meningeal signs Course Vital Signs: Vital signs: Vital Signs Temperature 98.4 F 01/13/24 19:53 Pulse Rate 91 01/13/24 21:43 Respiratory Rate 16 01/13/24 21:43 Blood Pressure 156/94 01/13/24 21:43 Pulse Oximetry 95 01/13/24 21:43 Oxygen Delivery Me thod Room Air 01/13/24 21:00 MDM - Fall Medical Decision Making X-rays were obtained of left ribs with a chest and left shoulder, no acute fi ndings per radiology. Patient be discharged home to follow-up with her PCP Lab Data Radiology Impressions Ribs X-Ray 01/13/24 20:00 IMPRESSION: No acute infiltrate. Shoulder X-Ray 01/13/24 20:00 IMPRESSION: No acute finding. All radiology interpretation(s) finalized by discharge Discharge Plan Discharge Patient Disposition: Home Clinical Impression: Acute chest wall pain Fall Qualifiers: Encounter type: initial encounter Qualified Code(s): W19.XXXA - Unspecified fall, initial encounter Acute shoulder pain Qualifiers: Laterality: left Qualified Code(s): M25.512 - Pain in left shoulder Condition: Stable Prescriptions: No Action alfalfa 600 mg tablet PO epinephrine 0.3 mg/0.3 mL auto-injector 0.3 mg IM DAILY PRN Rx Instructions: for 2 doses garlic 500 mg capsule 500 mg PO DAILY lidocaine 3 % cream 1 applic topical TID PRN loratadine [Allergy Relief (loratadine)] 10 mg tablet 10 mg PO DAILY multivitamin [Daily-Reji] Tablet 1 tab PO DAILY mupirocin 2 % ointment kit 1 applic topical BID levothyroxine [Synthroid] 200 mcg tablet 200 mcg PO DAILY furosemide 20 mg tablet 20 mg PO DAILY@0800 Qty: 90 3RF potassium chloride 20 mEq tablet extended release 20 meq PO DAILY Qty: 30 4RF cyclobenzaprine 10 mg Tablet 10 mg PO BID PRN (Reason: Spasms) clonidine HCl 0.1 mg Tablet 0.1 mg PO QAM albuterol sulfate 2.5 mg /3 mL (0.083 %) Solution For Nebulization 2.5 mg INHALATION Q4H PRN (Reason: Shortness Of Breath) gabapentin 400 mg Capsule See Rx Instructions .ROUTE .COMPLEX Rx Instructions: 800mg po qam and 400mg po qpm allopurinol 100 mg Tablet 100 mg PO DAILY hydrocodone-acetaminophen 10-325 mg tablet 1 tab PO Q4H PRN (Reason: Pain) aspirin 81 mg Tablet,Delayed Release (Dr/Ec) 162 mg PO BID Protonix 40 mg Tablet,Delayed Release (Dr/Ec) 40 mg PO DAILY metformin 1,000 mg Tablet 1,000 mg PO BID Serevent Diskus 50 mcg/dose Blister With Device 1 inh INHALATION BID gabapentin 100 mg Capsule 300 mg PO BEDTIME Vitamin D2 1,250 mcg (50,000 unit) Capsule 50,000 unit PO Q7D Rx Instructions: on sunday glipizide 5 mg Tablet 5 mg PO QAM Wellbutrin XL 150 mg Tablet Extended Release 24 Hr 150 mg PO QAM metoprolol tartrate 25 mg Tablet 25 mg PO BID Lovaza 1 gram Capsule 2 g PO BID levalbuterol tartrate 45 mcg/actuation Hfa Aerosol Inhaler 2 inh INHALATION Q6H PRN (Reason: Shortness Of Breath) hydrochlorothiazide 12.5 mg Tablet 12.5 mg PO QAM Voltaren Arthritis Pain 1 % Gel 2 g TOPICAL QID PRN (Reason: Pain) Vitamin B-12 1 tab PO DAILY Vitamin C 1 tab PO DAILY alpha lipoic acid 1 cap PO DAILY calcium 1 tab PO DAILY zinc 1 cap PO DAILY Plavix 75 mg Tablet 75 mg PO QAM Qty: 90 3RF lisinopril 10 mg Tablet 20 mg PO DAILY Qty: 30 3RF Cipro 500 mg tablet 500 mg PO BID Qty: 14 0RF promethazine 25 mg tablet 25 mg PO Q6H PRN (Reason: nausea and vomiting) Qty: 20 0RF Discharge Orders: Discharge ED (Routine); Ordered 01/13/24 Ordered By: Aleksandar Garcia Referrals: Marycruz Campoverde, CARPET CLEANING TECHNICIAN [Primary Care Provider] - 1 week Patient Instructions: Chest Pain - Chest Wall, Shoulder Pain (ED) Activity Restrictions/Additional Instructions: He had x-rays performed in the ER. They were read by the radiologist as no acute fractures, please continue your pain medicine you already have at home as directed. Please follow-up with your family practice physician within the next 7 days for further evaluation and treatment as needed. Coding Level of Care Code ED Environmental Communications Specialist for Lucy Gibson
[2024-01-13 21:00] VITALS: BP 154/81; PULSE 92; RESP 17; O2SAT 95
[2024-01-13 21:43] VITALS: BP 156/94; PULSE 91; RESP 16; O2SAT 95
== END 2024-01-13 22:00 | disposition home or self-care (01) ==
PROVIDERS: Emergency Provider Emergency Medicine; PCP Nurse Practitioner Family
DX: M25.512 Pain in left shoulder (principal); R07.89 Other chest pain; Z79.02 Long term (current) use of antithrombotics/antiplatelets; Z79.82 Long term (current) use of aspirin; Z79.84 Long term (current) use of oral hypoglycemic drugs; E11.9 Type 2 diabetes mellitus without complications; I10 Essential (primary) hypertension; Z86.73 Personal history of transient ischemic attack (TIA), and cerebral infarction without residual deficits; E78.5 Hyperlipidemia, unspecified; Z87.891 Personal history of nicotine dependence
CPT/HCPCS: 71101; 73030; 99284

== ENCOUNTER 2024-08-25 13:37 | Emergency (ER) | payer MEDICARE, OTHER, SELFPAY ==
[2024-08-25 13:43] VITALS: BP 163/105; PULSE 85; RESP 18; TEMP 36.5; O2SAT 95; BMI 25.0
--- NOTE | 2024-08-25 13:56 | ECG_ITS ---
[facility] Test Date: 2024-08-25 Pat Name: Irene Zuluaga Department: Room: Gender: Female Sander Wooden Pencils: : 1960 Requested By: Graham Liu Order Number: [id number] Pura MD: Sury Ivory M.D. Measurements Intervals [place] Rate: 82 P: 0 GA: 152 QRS: 17 QRSD: 83 T: 169 QT: 399 QTc: 468 Interpretive Statements SINUS RHYTHM ST DEVIATION AND MODERATE T-WAVE ABNORMALITY, CONSIDER ANTEROLATERAL ISCHEMIA [-0.1+ mV T-WAVE IN V3-V6] ST DEVIATION AND MODERATE T-WAVE ABNORMALITY, CONSIDER INFERIOR ISCHEMIA [-0.1+ mV T-WAVE IN II/aVF] Compared to ECG 06/10/2022 06:57:23 T-wave abnormality now present Possible ischemia now present Electronically Signed On 08-25-2024 19:26:28 [employer] by Sury Ivory M.D. [email or web address]
[2024-08-25 15:21] VITALS: BP 167/112; PULSE 93; O2SAT 99
--- NOTE | 2024-08-25 15:25 | XRR_ITS ---
PROCEDURE INFORMATION: Exam: XR Chest Exam date and time: 08/25/2024 3:31 PM Age: 63 years old Clinical indication: Pain; Angina pectoris; Prior surgery; Surgery date: 6+ months; Surgery type: Cardiac stents; Additional info: Pain left upper chest around clavicle TECHNIQUE: Imaging protocol: Radiologic exam of the chest. Views: 1 view. COMPARISON: CR XR ribs LT mn 3V w CXR1V [id number] 01/13/2024 8:07 PM FINDINGS: Lungs: Both lungs demonstrate diffuse interstitial coarsening which is felt to be chronic. No lung mass or infiltrate. Pleural spaces: Unremarkable. No pleural effusion. No pneumothorax. Heart/Mediastinum: Mild cardiomegaly is noted. Bones/joints: Sternal sutures are noted. XR/XR chest 1V portable [id number] IMPRESSION: No acute findings.
--- NOTE | 2024-08-25 15:28 | ED_ITS ---
HPI - General Adult 2 General: Chief complaint: General Medical Stated complaint: hypertension Time Seen by Provider: 08/25/24 15:15 History of Present Illness: Patient is a 63-year-old female with history of hypertension, diabetes, prior CVA, CAD. Patient has been checking her blood pressure pretty diligently recently and has noted that her pressure is running around 160/90. Patient states today was about 160/100 and she became little more concerned. Patient has home health come in twice a week. Home health come in and patient mentioned that she was having a little pain along her left clavicle that has been there for about a week. Home health advised that she come here for evaluation. Patient has pain along that left clavicle which is tender with palpation and reproducible. Patient does not have any pain down into the chest. No shortness of breath. No respiratory symptoms, no cough or congestion. No fever. Patient currently comfortable. She states she took her normal blood pressure medicine and has not had any change to them recently. Patient states she has appointment to see her primary doctor in the morning. Patient states off-and-on minor headache. Not the worst take of her life. States she has frequent issues relating to this. She states could be blood pressure related but she is not sure. Associated symptoms: Deny chest pain, dyspnea, nausea or rash Related Data Home Medications Medication Instructions Recorded Confirmed albuterol sulfate 2.5 mg/3 mL 2.5 mg inhalation Q4H PRN 06/14/21 08/25/24 (0.083 %) solution for nebulization Shortness Of Breath allopurinol 100 mg tablet 100 mg PO DAILY 06/14/21 08/25/24 aspirin 81 mg tablet,delayed 162 mg PO BID 06/14/21 08/25/24 release bupropion HCl 150 mg 24 hr tablet, 150 mg PO QAM 06/14/21 08/25/24 extended release (Wellbutrin XL) clonidine HCl 0.1 mg tablet 0.1 mg PO QAM 06/14/21 08/25/24 cyclobenzaprine 10 mg tablet 10 mg PO BID PRN Spasms 06/14/21 08/25/24 gabapentin 100 mg capsule 300 mg PO BEDTIME 06/14/21 08/25/24 gabapentin 400 mg capsule See Rx Instructions .Route .COMPLEX 06/14/21 08/25/24 glipizide 5 mg tablet 5 mg PO QAM 06/14/21 08/25/24 hydrochlorothiazide 12.5 mg tablet 12.5 mg PO QAM 06/14/21 08/25/24 hydrocodone 10 mg-acetaminophen 1 tab PO Q4H PRN Pain 06/14/21 08/25/24 325 mg tablet levalbuterol tartrate 45 2 inh inhalation Q6H PRN Shortness 06/14/21 08/25/24 mcg/actuation aerosol inhaler Of Breath metformin 1,000 mg tablet 1,000 mg PO BID 06/14/21 08/25/24 metoprolol tartrate 25 mg tablet 25 mg PO BID 06/14/21 08/25/24 pantoprazole 40 mg tablet,delayed 40 mg PO DAILY 06/14/21 08/25/24 release (Protonix) salmeterol 50 mcg/dose blister 1 inh inhalation BID 06/14/21 08/25/24 powder for inhalation (Serevent Diskus) epinephrine 0.3 mg/0.3 mL 0.3 mg IM DAILY PRN Allergic 07/12/21 08/25/24 injection, auto-injector Reaction levothyroxine 200 mcg tablet 200 mcg PO DAILY 07/12/21 08/25/24 (Synthroid) loratadine 10 mg tablet (Allergy 10 mg PO DAILY 07/12/21 08/25/24 Relief (loratadine)) multivitamin (Daily-Reji tablet) 1 tab PO DAILY 07/12/21 08/25/24 Previous Rx's Medication Instructions Recorded clopidogrel 75 mg tablet (Plavix) 75 mg PO QAM #90 tabs 06/18/21 lisinopril 10 mg tablet 20 mg (2 x 10 mg) PO DAILY #30 tabs 06/18/21 potassium chloride 20 mEq 20 meq PO DAILY #30 tabs 06/21/21 tablet,extended release furosemide 20 mg tablet 20 mg PO DAILY@0800 #90 tabs 07/12/21 promethazine 25 mg tablet 25 mg PO Q6H PRN nausea and 06/10/22 vomiting #20 tabs Allergies Allergy/AdvReac Type Severity Reaction Status Date / Time Iodinated Contrast Media Allergy Unknown Unknown Verified 08/25/24 13:52 adhesive tape Allergy ADR-Itching Verified 08/25/24 13:52 Anesthetics - Amide Type - Allergy Unconscious Verified 08/25/24 13:52 Select A Anesthetics - Leanne Type- Allergy Unconscious Verified 08/25/24 13:52 Parabens bee venom protein (honey bee) Allergy ALGY-Anaphy Verified 08/25/24 13:52 laxis Penicillins Allergy ALGY-Anaphy Verified 08/25/24 13:52 laxis pepper (genus Capsicum) Allergy ALGY-Anaphy Verified 08/25/24 13:52 laxis Review of Systems 2 Const: Denies: fever(s) or body aches Eyes: Denies: change in vision or eye discomfort ENMT: Denies: throat pain or nasal congestion Card: Denies: chest pain or lightheadedness Resp: Denies: dyspnea or wheezing GI: Denies: abdominal pain or nausea : Denies: difficulty voiding or dysuria Musc: Denies: neck pain or extremity pain Skin/Breast: Denies: rash or sores Neuro: Denies: weakness in extremities or sensory changes PFSH ED 2 PFSH: Medical History Type 2 diabetes mellitus As per medicine GERD (gastroesophageal reflux disease) Hypertension Personal history of congenital hip dysplasia History of poliomyelitis without residual effect CVA (cerebral vascular accident) Residual right hemiparesis Asthma Hypothyroidism Sustained SVT History of ablation Hyperlipidemia Statin was increased therefore we will discontinue amlodipine for interaction Gout Surgical History History of knee surgery History of bilateral carotid endarterectomy Hx of exploratory laparotomy History of cholecystectomy History of neck surgery History of hip replacement, total Family History Other CAD (coronary artery disease) Social History Smoking and tobacco/nicotine status: former use of tobacco/nicotine Alcohol intake: former Substance/Drug Use: never Physical Exam 2 Const: COMMON NORMALS: no acute distress, patient oriented x3 and alert G ENERAL APPEARANCE: cooperative HENMT: COMMON NORMALS: normocephalic and atraumatic HEAD & SCALP: n ormocephalic and atraumatic Eye: COMMON NORMALS: Equal, round and reactive pupils present and EOMs intact bilaterally PUPIL: Yes Equal, round and reactive pupils present Neck/C-Spine: COMMON NORMALS: full ROM and supple Chest: OTHER: Patient has mild tenderness along the left clavicle from about the sternum to mid clavicle. No injury that she notes. Resp: COMMON NORMALS: normal respiratory effort and clear to auscultation bilaterally AUSCULTATION: clear to auscultation bilaterally Cardio: COMMON NORMALS: regular rate and regular rhythm RATE: regular rate RHYTHM: regular rhythm GI: COMMON NORMALS: Normal to inspection, nondistended, normoactive bowel sounds present and non-tender : COMMON NORMALS: Yes no CVA tenderness BLADDER/KIDNEY EXAM: Yes no CVA tenderness Back/Pelvis: COMMON NORMALS: no CVA tenderness and thoracic and lumbar spine normal to inspection Extremity: COMMON NORMALS: normal to inspection, full ROM and no pedal edema Neuro: COMMON NORMALS: patient oriented x3 and no focal motor deficits S ENSORIUM/ORIENTATION: Yes alert Psych: COMMON NORMALS: cooperative Skin: COMMON NORMALS: no rashes or lesions noted GENERAL SKIN EXAM: no rashes or lesions noted Course 2 Vital Signs: Vital signs: Vital Signs Temperature 97.7 F 08/25/24 13:43 Pulse Rate 87 08/25/24 17:27 Respiratory Rate 16 08/25/24 17:27 Blood Pressure 171/104 08/25/24 17:27 Pulse Oximetry 94 08/25/24 17:27 Oxygen Delivery Me thod Room Air 08/25/24 17:27 MDM - General Adult Medical Decision Making Patient workup is unremarkable. Patient lab work consistent with prior testing. proBNP is a little elevated and magnesium a touch low. Patient blood pressure was staying about 165/100. Did give her 0.1 mg clonidine which brought it down to about 150/90. Patient currently asymptomatic. She does have the pain to her left clavicle that is reproducible. Nothing seen on chest x-ray. Patient has appointment with her primary care physician tomorrow morning. Have advised she keep that appointment. Do not feel there would be a benefit to changing or starting a new medication as she has appointment in the morning. Lab Data 08/25/24 16:00 08/25/24 16:00 Radiology Impressions Chest X-Ray 08/25/24 15:25 IMPRESSION: No acute findings. Laboratory Results WBC 8.44 10^3/uL (3.29-11.43) 08/25/24 16:00 RBC 4.89 10^6/uL (3.85-5.65) 08/25/24 16:00 Hgb 10.50 g/dL (11.27-16.99) L 08/25/24 16:00 Hct 37.0 % (36-47) 08/25/24 16:00 MCV 75.7 fl (85-98) L 08/25/24 16:00 MCH 21.5 pg (27-33) L 08/25/24 16:00 MCHC 28.4 g/dL (30-55) L 08/25/24 16:00 RDW 17.6 % (12.1-15.1) H 08/25/24 16:00 Plt Count 372 10^3/cmm (157-399) 08/25/24 16:00 MPV 11.3 fL (7.4-10.4) H 08/25/24 16:00 Neut % (Auto) 65.6 % 08/25/24 16:00 Lymph % (Auto) 24.5 % 08/25/24 16:00 Bosque % (Auto) 6.6 % 08/25/24 16:00 Eos % (Auto) 2.7 % 08/25/24 16:00 Baso % (Auto) 0.4 % 08/25/24 16:00 Neut # (Auto) 5.53 10^3/uL (1.8-7.7) 08/25/24 16:00 Lymph # (Auto) 2.1 10^3/uL (0.8-4.8) 08/25/24 16:00 [place] # (Auto) 0.6 10^3/uL (0.2-0.9) 08/25/24 16:00 Eos # (Auto) 0.2 10^3/uL (0.0-0.8) 08/25/24 16:00 Baso # (Auto) 0.0 10^3/uL (0.0-0.1) 08/25/24 16:00 Nucleated RBC % (auto) 0 % 08/25/24 16:00 Nucleated RBCs # 0.0 /100WBC 08/25/24 16:00 Sodium 139 mmol/L (136-145) 08/25/24 16:00 Potassium 4.2 mmol/L (3.5-5.1) 08/25/24 16:00 Chloride 101 mmol/L (98-107) 08/25/24 16:00 Carbon Dioxide 28 mmol/L (22-29) 08/25/24 16:00 Anion Gap 14.2 (5-19) 08/25/24 16:00 BUN 14 mg/dL (8-23) 08/25/24 16:00 Creatinine 0.7 mg/dL (0.5-0.9) 08/25/24 16:00 GFR Calculation 84.0 mL/min (90-130) L 08/25/24 16:00 Glucose 65 mg/dL (65-115) 08/25/24 16:00 Calculated Osmolality 287 mOsm/kg (285-295) 08/25/24 16:00 Calcium 9.5 mg/dL (8.5-10.5) 08/25/24 16:00 Magnesium 1.5 mg/dL (1.7-2.3) L 08/25/24 16:00 Total Bilirubin 0.3 mg/dL (0.15-1.2) 08/25/24 16:00 AST 44 U/L (0-32) H 08/25/24 16:00 ALT 13 U/L (0-33) 08/25/24 16:00 Alkaline Phosphatase 145 U/L (35-105) H 08/25/24 16:00 NT-Pro-B Natriuret Pep 7089 pg/mL (0-125) H 08/25/24 16:00 Total Protein 7.4 g/dL (6.6-8.7) 08/25/24 16:00 Albumin 4.2 g/dL (3.5-5.2) 08/25/24 16:00 Globulin 3.2 g/dL (1.3-4.6) 08/25/24 16:00 All radiology interpretation(s) finalized by discharge Discharge Plan Discharge Patient Disposition: Home Clinical Impression: Chest wall pain Hypertension Qualifiers: Hypertension type: primary hypertension Qualified Code(s): I10 - Essential (primary) hypertension Condition: Stable Prescriptions: No Action epinephrine 0.3 mg/0.3 mL auto-injector 0.3 mg IM DAILY PRN (Reason: Allergic Reaction) Rx Instructions: for 2 doses loratadine [Allergy Relief (loratadine)] 10 mg tablet 10 mg PO DAILY multivitamin [Daily-Reji] Tablet 1 tab PO DAILY levothyroxine [Synthroid] 200 mcg tablet 200 mcg PO DAILY furosemide 20 mg tablet 20 mg PO DAILY@0800 Qty: 90 3RF potassium chloride 20 mEq tablet extended release 20 meq PO DAILY Qty: 30 4RF cyclobenzaprine 10 mg Tablet 10 mg PO BID PRN (Reason: Spasms) clonidine HCl 0.1 mg Tablet 0.1 mg PO QAM albuterol sulfate 2.5 mg /3 mL (0.083 %) Solution For Nebulization 2.5 mg INHALATION Q4H PRN (Reason: Shortness Of Breath) gabapentin 400 mg Capsule See Rx Instructions .ROUTE .COMPLEX Rx Instructions: 800mg po qam and 400mg po qpm allopurinol 100 mg Tablet 100 mg PO DAILY hydrocodone-acetaminophen 10-325 mg tablet 1 tab PO Q4H PRN (Reason: Pain) aspirin 81 mg Tablet,Delayed Release (Dr/Ec) 162 mg PO BID pantoprazole [Protonix] 40 mg Tablet,Delayed Release (Dr/Ec) 40 mg PO DAILY metformin 1,000 mg Tablet 1,000 mg PO BID Serevent Diskus 50 mcg/dose Blister With Device 1 inh INHALATION BID gabapentin 100 mg Capsule 300 mg PO BEDTIME glipizide 5 mg Tablet 5 mg PO QAM bupropion HCl [Wellbutrin XL] 150 mg Tablet Extended Release 24 Hr 150 mg PO QAM metoprolol tartrate 25 mg Tablet 25 mg PO BID levalbuterol tartrate 45 mcg/actuation Hfa Aerosol Inhaler 2 inh INHALATION Q6H PRN (Reason: Shortness Of Breath) hydrochlorothiazide 12.5 mg Tablet 12.5 mg PO QAM clopidogrel [Plavix] 75 mg Tablet 75 mg PO QAM Qty: 90 3RF lisinopril 10 mg Tablet 20 mg PO DAILY Qty: 30 3RF promethazine 25 mg tablet 25 mg PO Q6H PRN (Reason: nausea and vomiting) Qty: 20 0RF Discharge Orders: Discharge ED (Routine); Ordered 08/25/24 Ordered By: Graham Liu Referrals: Semaj Ramey MD [Primary Care Provider] - Discharge Diet: Usual diet Discharge Activity: Resume usual activity Patient Instructions: Opioid Safety, Pain Management Activity Restrictions/Additional Instructions: Follow-up with your primary care physician tomorrow morning at your previously scheduled appointment. Take your blood pressure readings with you to go over with your doctor. The soreness to your left upper chest is most likely inflammation in the musculature. This should resolve itself over time. Discussed this with your primary doctor. Coding Level of Care Code ED Hand Cloth Folder for Lucy Gibson
--- NOTE | 2024-08-25 15:41 | PC.PHAR ---
patient says she takes to many meds to keep up with so i had to call meds by mail via [facility] to get med list
[2024-08-25 16:12] LABS: Basophils % 0.4 %; Eosinophils # 0.2 10^3/uL (0.0-0.8); Eosinophils % 2.7 %; Lymphocytes # 2.1 10^3/uL (0.8-4.8); Lymphocytes % 24.5 %; Mean Corpuscular HGB Conc 28.4 g/dL (30-55); Mean Corpuscular Hemoglobin 21.5 pg (27-33); Mean Corpuscular Volume 75.7 fl (85-98); Mean Platelet Volume 11.3 fL (7.4-10.4); Monocytes # 0.6 10^3/uL (0.2-0.9); Monocytes % 6.6 %; Neutrophils # 5.53 10^3/uL (1.8-7.7); Neutrophils % 65.6 %; Nucleated Red Blood Cells % 0 %; Platelet Count 372 10^3/cmm (157-399); Red Blood Count 4.89 10^6/uL (3.85-5.65); Red Cell Distribution Width 17.6 % (12.1-15.1); White Blood Count 8.44 10^3/uL (3.29-11.43)
[2024-08-25 16:37] VITALS: BP 167/93; PULSE 88; RESP 18; O2SAT 97
[2024-08-25 16:45] LABS: Alanine Aminotransferase 13 U/L (0-33); Albumin Level 4.2 g/dL (3.5-5.2); Alkaline Phosphatase 145 U/L (35-105); Anion Gap 14.2 (5-19); Aspartate Amino Transferase 44 U/L (0-32); Blood Urea Nitrogen 14 mg/dL (8-23); Calcium 9.5 mg/dL (8.5-10.5); Carbon Dioxide 28 mmol/L (22-29); Chloride 101 mmol/L (98-107); Creatinine Clr Calc Pharmacy 73.0358; Globulin 3.2 g/dL (1.3-4.6); Glucose 65 mg/dL (65-115); Magnesium 1.5 mg/dL (1.7-2.3); NT Pro B Type Natriuretic Pept 7089 pg/mL (0-125); Osmolality Calculated 287 mOsm/kg (285-295); Potassium 4.2 mmol/L (3.5-5.1); Sodium 139 mmol/L (136-145); Total Bilirubin 0.3 mg/dL (0.15-1.2); Total Protein 7.4 g/dL (6.6-8.7)
[2024-08-25 17:26] VITALS: BP 171/104
[2024-08-25] MEDS: cloNIDine 0.1 mg Tablet PO (17:26)
[2024-08-25 17:27] VITALS: BP 171/104; PULSE 87; RESP 16; O2SAT 94
[2024-08-25 18:05] VITALS: BP 173/101; PULSE 89; O2SAT 97
== END 2024-08-25 18:06 | disposition home or self-care (01) ==
PROVIDERS: Emergency Provider Emergency Medicine
DX: I10 Essential (primary) hypertension (principal)
CPT/HCPCS: 12345; 36415; 71045; 80053; 83735; 83880; 85025; 93005; 99285